=== PATIENT | male | born 1945 | race Caucasian/White ===

== ENCOUNTER 2021-05-22 10:27 | Day surgery (SDC) | payer OTHER ==
--- OUTSIDE RECORDS SUMMARY | 2021-05-22 10:29 | XMS REPORT | Continuity of Care Document ---
:1945 Author Organization [facility] Address [address] [place] [address] [address]. [address] [place] [address] Care Team Providers Name Role Phone KENDALL Attending Clinician Unavailable MARK Attending Clinician Unavailable Traci Attending Clinician Unavailable CATRACHITA Attending Clinician Unavailable EVER Attending Clinician Unavailable OXANA Attending Clinician Unavailable MD Mamta ARGUETA Attending Clinician Unavailable ALFRED Attending Clinician Unavailable MILI Attending Clinician Unavailable AGUSTO Attending Clinician Unavailable OXANA Admitting Clinician Unavailable MD Mamta ARGUETA Admitting Clinician Unavailable Problems This patient has no known problems. Allergies, Adverse Reactions, Alerts This patient has no known allergies or adverse reactions. Medications This patient has no known medications. Procedures This patient has no known procedures. Encounters Start End Encounter Admission Attending Care Care Encounter Source Date/Time Date/Time Type Type Clinicians Facility Department ID 2021-03-04 2021-03-04 Outpatient KENDALL [facility] [id number] [place] 00:00:00 00:00:[address] MEME [address] 2021-03-04 2021-03-04 Outpatient KENDALL [facility] [id number] [place] 00:00:00 00:00:00 MEME 910 [facility] 2020-12-23 2020-12-23 Outpatient MRAK [facility] [id number] [place] 00:00:00 00:00:00 CHRISS [facility] 2020-12-23 2020-12-23 Outpatient MARK [facility] [id number] [place] 00:00:00 00:00:00 CHRISS [address] 2020-09-01 2020-09-01 [id number] [place] 00:00:00 00:00:00 MEME [address] 2020-09-01 2020-09-01 [facility] [id number] [place] 00:00:00 00:00:00 MEME [address] 2020-06-02 2020-06-02 Outpatient WOOD, [facility] [id number] [place] 00:00:00 00:00:00 MEME [address] 2020-06-02 2020-06-02 Outpatient WOOD, [facility] [id number] [place] 00:00:00 00:00:00 MEME [address] 2020-04-18 2020-04-18 Outpatient KENDALL, [facility] [id number] [place] 00:00:00 00:00:00 MEME [address] 2020-04-18 2020-04-18 Outpatient KENDALL, [facility] [id number] [place] 00:00:00 00:00:00 MEME [address] 2020-04-18 2020-04-18 Outpatient ON, [facility] [id number] [place] 00:00:00 00:00:00 NABOR [address] 2020-03-13 2020-03-13 Outpatient RADARETHA, [facility] [id number] [place] 00:00:00 00:00:00 DOUG [address] 2020-03-13 2020-03-13 Outpatient RADLEY, [facility] [id number] [place] 00:00:00 00:00:00 DOUG [address] 2020-02-28 2020-03-05 Inpatient JOGLEKAR, [facility] [id number] [place] 00:00:00 00:00:00 MORRIS [address] 2020-02-26 2020-02-26 Outpatient KENDALL, [facility] [id number] [place] 00:00:00 00:00:00 MEME [address] 2020-02-26 2020-02-26 Outpatient KENDALL, [facility] [id number] [place] 00:00:00 00:00:00 MEME [address] 2020-02-21 2020-02-21 Outpatient RADARETHA, [facility] [id number] [place] 00:00:00 00:00:00 DOUG [address] 2020-02-11 2020-02-11 Outpatient BRAUNREITER [facility] [id number] [place] 00:00:00 00:00:00 MATHIEU [address] 2020-01-31 2020-01-31 Outpatient BRAUNREITER [facility] [id number] [place] 00:00:00 00:00:00 , MATHIEU 530 [facility] 2020-01-21 2020-01-21 Outpatient BRAUNREITER [facility] [id number] [place] 00:00:00 00:00:00 , MATHIEU 438 [facility] 2020-01-21 2020-01-21 Outpatient MILI, [facility] [id number] [place] 00:00:00 00:00:00 SIXTOOPAL Ridley Metho di 2020-01-21 2020-01-21 Outpatient BRAUNREITER [facility] [id number] [place] 00:00:00 00:00:00 , MATHIEU 345 [facility] 2020-01-21 2020-01-21 [facility] [id number] [place] 00:00:00 00:00:00 , MATHIEU 342 [facility] 2019-11-01 2019-11-01 Outpatient AGUSTO, [facility] [id number] [place] 00:00:00 00:00:00 NADMARI [address] 2019-10-18 2019-10-18 Outpatient ONDO, [facility] [id number] [place] 00:00:00 00:00:00 NABOR 957 [facility] 2019-06-18 2019-06-18 Outpatient ONDO, [facility] [id number] [place] 00:00:00 00:00:00 NABOR [address] Results Test Description Test Time Test Comments Results Result [facility] e Comments CT ABDOMEN AND 2020-04-30 PELVIS W/WO 17:14:32 [facility]ICAL IMAGINGName: BRYANNA JARQUIN: 1945 Sex: M CL INICAL INDICATION: R31.9 Hematuria, unspecifiedMODALITY: [employer] Scen[employer] [address] (Iterative dose reduction technique is used).TECHNIQUE: Helical imaging of the abdomen and pelvis is performed. Oral contrast is not administered. 90 mls optiray 350 are administered IV. Imaging performed prior to and after administration of contrast.Computed Tomography Dose Index: 52.4 mGy. IMPRESSION:1. No acute abnormality or urinary obstruction.2. Single, bilateral intrarenal calculi as noted.3. Bilateral renal cysts.4. Status post cholecystectomy.5. Mildly enlarged prostate.6. Borderline hepatomegaly.7. Fat filled, 3.4 cm diameter right inguinal hernia.8. Coronary artery calcification.FINDING S:COMPARISON: No prior study.The lung bases are clear. No pleural disease is present. Coronary artery calcification is noted.The liver is borderline enlarged with a length of 17 cm. I see no focal attenuation defect suspicious for replacement lesion or abnormal contrast enhancement. Hepatic veins, portal venous system and biliary tree are normal. The gallbladder has been removed.Stomach and duodenum are unremarkable. The spleen is normal in size and contour. No pancreatic mass, pancreatic duct dilatation or peripancreatic edema is visible.Adrenal glands are normal. A nonobstructing, 5 mm, lower pole stone is present in the left kidney in addition to a 3 mm lower pole stone in the right kidney. There are six left renal cysts, largest and most likely hemorrhagic measuring 5 cm in diameter. Four right renal cysts are noted, largest measuring 1.5 cm. No hydronephrosis or solid renal mass is observed.Neither retrocrural nor retroperitoneal adenopathy is present. Vascular structures are within normal limits.No significant bowel pathology is noted. Omentum and mesentery are unremarkable.The prostate gland is mildly enlarged. It slightly elevates the base of the bladder which is otherwise unremarkable.A fat filled, 3.4 cm diameter right inguinal hernia is observed. Abdominal wall is otherwise intact. No ascites visualized.No suspicious lytic or blastic osseous lesions are observed.PQRS 436: G9637 (For official use only.) SARS-CoV-2 (COVID-19) RNA [Presence] in Respiratory sp ecimen by 2020-02-27 02:51:55 KASSIE with probe detection Test Item Value Reference Range Interpretation Comme nts SARS-CoV-2 (COVID-19) RNA [Presence] in Respiratory Not detected No t-Detected specimen by KASSIE with probe detection (test code = 01663-9)
[2021-05-22] MEDS ORDERED: HEPA 1000U/500MLS 2,000 UNIT/1,000 ML BAG IV ONE (10:43)
[2021-05-22] MEDS ORDERED: LIDOCAINE 1% 20 ML MDV ONE (10:43)
[2021-05-22] MEDS ORDERED: HEPARIN 5000 UNIT/ML 1 ML VIAL ONE (10:46)
[2021-05-22] MEDS ORDERED: CLOPIDOGREL 75 MG TABLET ONE (10:46)
[2021-05-22] MEDS ORDERED: VERAPAMIL HCL 10 MG/4 ML VIAL IV ONE (10:46)
[2021-05-22] MEDS ORDERED: TICAGRELOR 90 MG TABLET PO ONE (10:47)
[2021-05-22] MEDS ORDERED: ASPIRIN 325 MG TAB ONE (10:47)
[2021-05-22] MEDS ORDERED: HEPARIN 10,000 UNIT/10 ML VIAL IV ONE (10:47)
[2021-05-22] MEDS ORDERED: ATROPINE SULF 1 MG/10 ML SYR IV ONE (10:47)
[2021-05-22] MEDS ORDERED: FENTANYL CITR 100 MCG/2 ML ONE (10:48)
[2021-05-22] MEDS ORDERED: MIDAZOLAM HCL 2 MG/2 ML INJ ONE (10:48)
--- NOTE | 2021-05-22 10:51 | EDPHYS ---
Physician Documentation [facility] Name: Emanuel Porter Age: 75 yrs Sex: Male : 1945 Arrival Date: 05/22/2021 Time: 10:27 Bed 26 Private MD: Huan Rodríguez V; Raslan, Saleem ED Physician Boubacar Hooper HPI: 05/22 10:46 This 75 yrs old Male presents to ER via Unassigned with complaints of Chest erna Pain. 10:46 The patient or guardian reports chest pain that is located primarily in the substernal erna area. Onset: 3 day(s) ago. The pain does not radiate. Associated signs and symptoms: The patient has no apparent associated signs or symptoms. The chest pain is described as squeezing. Duration: The patient or guardian reports a single episode, that is still ongoing. Modifying factors: The symptoms are alleviated by remaining still, the symptoms are aggravated by activity. Severity of pain: At its worst the pain was mild in the emergency department the pain is unchanged. The patient has not experienced similar symptoms in the past. Historical: - Allergies: 10:52 No Known Allergies; ww - PMHx: 10:52 Arthritis; Atrial Fib; Depression; Hypertension; RESTLESS LEG; skin cancer; ww - PSHx: 10:52 back; Appendectomy; Cholecystectomy; ww - Immunization history:: Adult Immunizations up to date. - Social history:: Smoking status: Patient denies any tobacco usage or history of. - Family history:: not pertinent. ROS: 10:46 Constitutional: Negative for fever, chills, and weight loss, Eyes: Negative for injury, erna pain, redness, and discharge, ENT: Negative for injury, pain, and discharge, Neck: Negative for injury, pain, and swelling, Respiratory: Negative for shortness of breath, cough, wheezing, and pleuritic chest pain, Abdomen/GI: Negative for abdominal pain, nausea, vomiting, diarrhea, and constipation, Back: Negative for injury and pain, : Negative for injury, bleeding, discharge, and swelling, MS/Extremity: Negative for injury and deformity, Skin: Negative for injury, rash, and discoloration, Neuro: Negative for headache, weakness, numbness, tingling, and seizure, Psych: Negative for depression, anxiety, suicide ideation, homicidal ideation, and hallucinations, Allergy/Immunology: Negative for hives, rash, and allergies, Endocrine: Negative for neck swelling, polydipsia, polyuria, polyphagia, and marked weight changes, Hematologic/Lymphatic: Negative for swollen nodes, abnormal bleeding, and unusual bruising. 10:46 Cardiovascular: Positive for chest pain, of the chest. Exam: 10:46 Constitutional: This is a well developed, well nourished patient who is awake, alert, erna and in no acute distress. Head/Face: Normocephalic, atraumatic. Eyes: Pupils equal round and reactive to light, extra-ocular motions intact. Lids and lashes normal. Conjunctiva and sclera are non-icteric and not injected. Cornea within normal limits. Periorbital areas with no swelling, redness, or edema. ENT: Nares patent. No nasal discharge, no septal abnormalities noted. Tympanic membranes are normal and external auditory canals are clear. Oropharynx with no redness, swelling, or masses, exudates, or evidence of obstruction, uvula midline. Mucous membranes moist. Neck: Trachea midline, no thyromegaly or masses palpated, and no cervical lymphadenopathy. Supple, full range of motion without nuchal rigidity, or vertebral point tenderness. No Meningismus. Chest/axilla: Normal chest wall appearance and motion. Nontender with no deformity. No lesions are appreciated. Cardiovascular: Regular rate and rhythm with a normal S1 and S2. No gallops, murmurs, or rubs. Normal PMI, no JVD. No pulse deficits. Respiratory: Lungs have equal breath sounds bilaterally, clear to auscultation and percussion. No rales, rhonchi or wheezes noted. No increased work of breathing, no retractions or nasal flaring. Abdomen/GI: Soft, non-tender, with normal bowel sounds. No distension or tympany. No guarding or rebound. No evidence of tenderness throughout. Back: No spinal tenderness. No costovertebral tenderness. Full range of motion. Male : Normal genitalia with no discharge or lesions. Skin: Warm, dry with normal turgor. Normal color with no rashes, no lesions, and no evidence of cellulitis. MS/ Extremity: Pulses equal, no cyanosis. Neurovascular intact. Full, normal range of motion. Neuro: Awake and alert, GCS 15, oriented to person, place, time, and situation. Cranial nerves II-XII grossly intact. Motor strength 5/5 in all extremities. Sensory grossly intact. Cerebellar exam normal. Normal gait. Psych: Awake, alert, with orientation to person, place and time. Behavior, mood, and affect are within normal limits. Vital Signs: 10:50 Temp 98.5; Weight 100.24 kg; Height 6 ft. 0 in. (182.88 cm); ww 10:57 BP 158 / 84; Pulse 56; Resp 18; Temp 97.9; Pulse Ox 100% on R/A; Weight 100.24 kg; dominguez Height 6 ft. 0 in. (182.88 cm); 10:57 Body Mass Index 29.97 (100.24 kg, 182.88 cm) dominguez MDM: 10:37 Patient medically screened. erna 10:49 Differential diagnosis: abnormal EKG, acute myocardial infarction, anxiety, coronary erna artery disease congestive heart failure hiatal hernia, stable angina, unstable angina. HEART Score: History: Moderately Suspicious (1), ECG: Normal (0), Age: > or = 65 years (2), Risk Factors: > or = 3 Risk factors for atherosclerotic disease (2), [Hypercholesterolemia] [Hypertension] [+ Family HX] [Obesity] Troponin: < or = 1 x Normal Limit (0). The patient was given aspirin in the Emergency Department. The patient's deep vein thrombosis risk score was calculated as follows: Total Score: 0. This patient was found to be at low risk for a deep vein thrombosis by using the Well's assessment criteria. The patient's pulmonary embolism risk score was calculated as follows: Total Score: 0-2 points. This patient was found to be at low risk for a pulmonary embolism by using the Well's assessment criteria. HAYES Risk Score: 1 - patient's age is greater or equal to 65 years, 1 - Three or more CAD risk factors, 1- Known CAD, 1 - ASA use in past 7 days, TOTAL SCORE = 4. Data reviewed: vital signs, nurses notes, lab test result(s), EKG, radiologic studies, plain films. Data interpreted: spray gunner: rate is 75 beats/min, rhythm is regular. Test interpretation: by ED physician or midlevel provider: ECG, plain radiologic studies. Counseling: I had a detailed discussion with the patient and/or guardian regarding: the historical points, exam findings, and any diagnostic results supporting the discharge/admit diagnosis, lab results, radiology results, the need for further work-up and treatment in the hospital. 05/22 10:44 Order name: Basic Metabolic Panel [facility] 05/22 10:44 Order name: CBC with Diff [facility] 05/22 10:44 Order name: LFT's [facility] 05/22 10:44 Order name: Magnesium [facility] 05/22 10:44 Order name: NT PRO-BNP [facility] 05/22 10:44 Order name: PT-INR [facility] 05/22 10:44 Order name: Troponin HS [facility] 05/22 10:44 Order name: XRAY Chest (1 view) [facility] 05/22 10:44 Order name: EKG; Complete Time: 10:45 [facility] 05/22 10:44 Order name: Cardiac monitoring; Complete Time: 10:54 [facility] 05/22 10:44 Order name: EKG - Nurse/Tech; Complete Time: 10:54 [facility] 05/22 10:44 Order name: SARS-COV-2 RT PCR (Document "Date of Onset" if Symptomatic) [facility] 05/22 10:44 Order name: IV Saline Lock; Complete Time: 10:54 [facility] 05/22 10:44 Order name: Labs collected and sent; Complete Time: 10:54 [facility] 05/22 10:44 Order name: O2 Per Protocol; Complete Time: 10:54 [facility] 05/22 10:44 Order name: O2 Sat Monitoring; Complete Time: 10:54 [facility] 05/22 10:44 Order name: Urine Dipstick-Ancillary (obtain specimen) erna Administered Medications: 11:03 Drug: Aspirin Chewable Tablet 324 mg Route: PO; dominguez 11:03 Follow up: Response: No adverse reaction dominguez Disposition Summary: 05/22/21 10:51 Hospitalization Ordered Hospitalization Status: Observation erna Provider: Moises Joseph cha Location: Motel [facility] erna Condition: Fair erna Problem: new erna Symptoms: have improved erna Bed/Room Type: Standard [facility] Room Assignment: erna Diagnosis - Unstable angina erna - Chest pain, unspecified erna Forms: - Medication Reconciliation Form erna - SBAR form erna Signatures: Dispatcher [employer] Boubacar Weir MD MD cha Wood, Whitney, RN RN ww Au-Stager, Heather, RN RN ha
[2021-05-22] MEDS ORDERED: NA CHLORIDE 0.9% 500 ML ONE (10:54)
[2021-05-22 11:03] LABS: Absolute Lymphocytes (CBC) 1.2 K/uL (0.7-4.9); Hematocrit 46.5 % (39.6-49.0); Lymphocytes % 21.4 % (15.3-44.8); MPV 8.5 fL (7.6-11.3)
[2021-05-22] MEDS ORDERED: ASPIRIN 81 MG CHEWABLE TABLET ONE (11:05)
[2021-05-22 11:06] LABS: Protime INR 0.96
[2021-05-22 11:25] LABS: ALT/SGPT < 10 U/L (12-78); AST/SGOT 19 U/L (15-37); Albumin 4.2 g/dL (3.4-5.0); Alkaline Phosphatase 80 U/L (45-117); BUN Blood Urea Nitrogen 28 mg/dL (7-18); Bicarbonate 30 mmol/L (21-32); Bilirubin Direct 0.2 mg/dL (0-0.2); Bilirubin Total 0.7 mg/dL (0.2-1.0); Glucose Level 98 mg/dL (74-106); Magnesium 2.5 mg/dL (1.8-2.4); NT PRO-BNP 44 pg/mL (<450); Potassium 3.6 mmol/L (3.5-5.1); Protein, Total 7.6 g/dL (6.4-8.2); Sodium Level 140 mmol/L (136-145)
--- NOTE | 2021-05-22 11:31 | ER ---
Nurse's Notes [facility] Name: Emanuel Porter Age: 75 yrs Sex: Male : 1945 Arrival Date: 05/22/2021 Time: 10:27 Bed 26 Private MD: Huan Rodríguez V; Raslan, Saleem Diagnosis: Unstable angina;Chest pain, unspecified Presentation: 05/22 10:50 Chief complaint: Patient states: Sent from [facility] for a heart cath. ww Patient admits to having chest pain/pressure/tightness that started yesterday. He admits to having intermittent chest pains for awhile. Coronavirus screen: Vaccine status: Patient reports receiving the 2nd dose of the covid vaccine. Client denies travel out of the [place] in the last 14 days. Ebola Screen: Patient negative for fever greater than or equal to 101.5 degrees Fahrenheit, and additional compatible Ebola Virus Disease symptoms Patient denies travel to an Ebola-affected area in the 21 days before illness onset. Initial Sepsis Screen: Does the patient meet any 2 criteria? No. Patient's initial sepsis screen is negative. Does the patient have a suspected source of infection? No. Patient's initial sepsis screen is negative. Risk Assessment: Do you want to hurt yourself or someone else? Patient reports no desire to harm self or others. Onset of symptoms was May 21, 2021. 10:50 Method Of Arrival: Ambulatory ww 10:50 Acuity: MOUSTAPHA 3 ww Triage Assessment: 10:52 General: Appears in no apparent distress. comfortable, Behavior is calm, cooperative, ww appropriate for age. Pain: Complains of pain in anterior aspect of left upper chest, xiphoid area, mid-sternal area and left breast. Neuro: Level of Consciousness is awake, alert, obeys commands, Oriented to person, place, time, situation, Yardmaster are equal bilaterally Speech is normal. Cardiovascular: Capillary refill < 3 seconds Patient's skin is warm and dry. Chest pain quality is heaviness. Respiratory: Airway is patent Respiratory effort is even, unlabored, Respiratory pattern is regular, symmetrical. GI: No signs and/or symptoms were reported involving the gastrointestinal system. Abdomen is non-distended. : No signs and/or symptoms were reported regarding the genitourinary system. Derm: Skin is intact, is healthy with good turgor. Historical: - Allergies: 10:52 No Known Allergies; ww - PMHx: 10:52 Arthritis; Atrial Fib; Depression; Hypertension; RESTLESS LEG; skin cancer; ww - PSHx: 10:52 back; Appendectomy; Cholecystectomy; ww - Immunization history:: Adult Immunizations up to date. - Social history:: Smoking status: Patient denies any tobacco usage or history of. - Family history:: not pertinent. Screenin:54 Abuse screen: Denies threats or abuse. Denies injuries from another. Nutritional ww screening: No deficits noted. Tuberculosis screening: No symptoms or risk factors identified. Fall Risk None identified. Assessment: 10:56 General: Appears in no apparent distress. Behavior is calm, cooperative. Pain: dominguez Complains of pain in chest Pain does not radiate. Pain began gradually. Cardiovascular: Reports chest pain, Chest pain is located in anterior chest wall. Vital Signs: 10:50 Temp 98.5; Weight 100.24 kg; Height 6 ft. 0 in. (182.88 cm); ww 10:57 BP 158 / 84; Pulse 56; Resp 18; Temp 97.9; Pulse Ox 100% on R/A; Weight 100.24 kg; dominguez Height 6 ft. 0 in. (182.88 cm); 10:57 Body Mass Index 29.97 (100.24 kg, 182.88 cm) dominguez ED Course: 10:27 Patient arrived in ED. as 10:28 Huan Rodríguez MD is Private Physician. as 10:28 Moises Joseph MD is Private Physician. as 10:33 Boubacar Hooper MD is Attending Physician. erna 10:50 Moises Joseph MD is Hospitalizing Provider. erna 10:50 Moises Joseph MD is Hospitalizing Provider. erna 10:52 Triage completed. ww 10:52 Arm band placed on right wrist. ww 10:54 Patient has correct armband on for positive identification. Placed in gown. Bed in low ww position. Call light in reach. Side rails up X 1. Adult w/ patient. technical services representative on. Pulse ox on. NIBP on. 10:56 No provider procedures requiring assistance completed. Inserted saline lock: 20 gauge dominguez in left forearm, using aseptic technique. Patient maintains SpO2 saturation greater than 95% on room air. 11:00 EKG done, by ED staff, reviewed by Boubacar Hooper MD. em1 11:03 SARS-COV-2 RT PCR (Document "Date of Onset" if Symptomatic) Sent. 11:30 Patient admitted, IV remains in place. dominguez Administered Medications: 11:03 Drug: Aspirin Chewable Tablet 324 mg Route: PO; dominguez 11:03 Follow up: Response: No adverse reaction dominguez Outcome: 10:51 Decision to Hospitalize by Provider. erna 11:30 Admitted to [facility] Cove[facility] Hand accompanied by nurse, family with patient, via stretcher, on dominguez monitor. 11:30 Condition: stable 11:30 Instructed on the need for admit. 11:30 Patient left the ED. dominguez Signatures: Boubacar Hooper MD MD cha Martinez, Amelia as Martinez, Eric em1 Deysi Bill, RN RN Alcira Bauman RN RN
[2021-05-22 11:43] VITALS: TEMP 97.9
[2021-05-22 14:31] VITALS: BP 117/69
[2021-05-22 15:14] VITALS: O2SAT 99
--- NOTE | 2021-05-22 22:33 | OP ---
Date of Procedure: 05/22/2021 Surgeon: WALDO BETHEA Procedure Performed: Selective coronary angiogram. Indication: Unstable angina. Access: Right radial artery 6-Arabic closed with TR band. Complications: None. Bleeding: Less than 10 mL. Anesthesia: Total sedation time was 20 minutes. Description Of Procedure: After risks, benefits, and alternatives were explained, the patient agreed to proceed and signed informed consent. The patient was brought into the cardiac catheterization la boratory, prepped and draped in usual sterile fashion. Then, we accessed right radial artery using p Beroomers micropuncture kit and placed a 6-Arabic slender sheath and took a 5-Arabic [place] 4.0 cathete r into the aortic root, engaged the left main and right coronary artery, took standard views and sanjeev pily the catheter and sheath, placed TR band with good hemostasis. Findings: 1.Left main is large and normal. 2.LAD is large with diffuse 10% to 20% throughout and luminal irregularity and normal diagonal branc hes. 3.Left circumflex that is nondominant, but moderate-sized vessel with no significant disease. 4.RCA is large dominant with diffuse 10% to 20% stenosis, but nothing obstructive. Conclusion: Mild nonobstructive coronary artery disease. Plan: Medical management, high-dose statin, and baby aspirin and follow up with me in the office in 1 month. SR/MODL Voice ID: [id number] Report ID: [id number]
--- NOTE | 2021-05-23 12:46 | EKG ---
Test Date: 2021-05-22 Test Time: 10:55:06 Director Of Broadcast: VERN MEASUREMENT RESULTS: Intervals: Rate: 51 PA: 214 QRSD: 106 QT: 440 QTc: 405 [place]: P: 68 PA: 214 QRS: -31 T: 31 INTERPRETIVE STATEMENTS: Sinus bradycardia with sinus arrhythmia with 1st degree AV block Left axis deviation Cannot rule out Anterior infarct, age undetermined Abnormal ECG Compared to ECG 09/10/2010 19:13:28 First degree AV block now present Left-axis deviation now present Myocardial infarct finding now present Electronically Signed On 05-23-21 12:45:01 FIXER SUPERVISOR by Michi Hastings
== END 2021-05-22 15:10 | disposition home or self-care (01) ==
LOC: ER 10:27 → CCL 10:53
PROVIDERS: ATTEND Internal Medicine
DX: I25.110 Atherosclerotic heart disease of native coronary artery with unstable angina pectoris (principal); I48.91 Unspecified atrial fibrillation; I10 Essential (primary) hypertension; G25.81 Restless legs syndrome; M19.90 Unspecified osteoarthritis, unspecified site; F32.A Depression, unspecified; Z85.828 Personal history of other malignant neoplasm of skin; Z90.49 Acquired absence of other specified parts of digestive tract; Z20.822 Contact with and (suspected) exposure to COVID-19
CPT/HCPCS: 93005; 85025; 80048; 36415; 83735; 85610; 85379 ×2; 80076; 84484; 83880; 93454; 99285; U0003; C1893; J1644 ×2; J2250; J3010; J7040

== ENCOUNTER 2022-09-02 10:48 | Observation (INO) | payer OTHER ==
--- OUTSIDE RECORDS SUMMARY | 2022-09-02 11:02 | XMS REPORT | Continuity of Care Document ---
:1945 Author Organization [facility] t Address [address] [place] [address] [address] [place] [address] Care Team Providers Name Role Phone Chriss Rodríguez MD Primary Care Physician Kristian Recio MD Attending Clinician Pedro Gregorio Attending Clinician PEDRO GREGORIO Attending Clinician Unavailable AMBREEN PETERSEN Attending Clinician Unavailable Ambreen Petersen Attending Clinician GIDEON LIZ Attending Clinician Unavailable MEME ARGUETA Attending Clinician Unavailable CHRISS RODRÍGUEZ Attending Clinician Unavailable DOUG CURTIS Attending Clinician Unavailable MORRIS DAIGLE Attending Clinician Unavailable MD MEME ARGUETA Attending Clinician Unavailable MATHIEU SIMON Attending Clinician Unavailable SIXTO GARCES Attending Clinician Unavailable Olegario Miller Attending Clinician Aleena Samano Attending Clinician Jayce Sampson Attending Clinician Antonio Bullock Attending Clinician Antonio Bullock Attending Clinician Mukund Mcdowell Attending Clinician MORRIS DAIGLE Admitting Clinician Unavailable MD MEME ARGUETA Admitting Clinician Unavailable Clemente Whitt Admitting Clinician Antonio Bullock Admitting Clinician Antonio Bullock Admitting Clinician Payers Payer Name Policy Type Policy Number Effective Date Expiration Date Alexandra YBARRA MEDICARE PPO [id number] 2022 00:00:00 Problems Condition Condition Condition Status Onset Resolution Last Treating Co mments Source Name Details Category Date Date Treatment Clinician Date C61 C61 Diagnosis Active 2022-08-30 Mem oria Active 08-02 13:51:00 l 08/02/2022 00:00: Francis castro 00 [facility] DX C61 DX C61 Diagnosis Active 2022-08-19 Me moria Active 08-02 08:49:00 l 08/02/2022 00:00: Francis castro 00 [place] 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-15 st stenosis stenosis 00:00: Hospit a 00 l 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 Added automatic ally from request for surgery [id number] Other Other Disease Active 2019-03 Overview: Method i spondylosi spondylosi 2-[address] s with s with 00:00: g of this Hospita radiculopa radiculopa 00 note l thy, thy, might be lumbar lumbar different region region from the original. 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 Added automatic ally from request for surgery [id number] WOUND VAC WOUND VAC Diagnosis Active 2019-07-19 Memoria NOT NOT 07-18 16:59:00 l WORKING WORKING 00:00: Khurram Active 07/19/2019 [facility] LACERATION LACERATIO Diagnosis Active 2019-07-16 Memoria TO LEFT N TO LEFT 07-12 18:03:00 l LOWER LEG LOWER LEG 00:00: Herm kathleen Active 07/13/2019 [facility] M51.36 - M51.36 - Diagnosis Active 2016-10-28 Memoria OTHER OTHER 10-25 10:28:00 l INTERVERTE INTERVERTE 00:01: He rmann BRAL DISC BRAL DISC 00 DEGE DEGE Active 10/25/2016 [facility] 780.2 - 780.2 - Diagnosis Active 2014-06-16 Memoria SYNCOPE SYNCOPE - 20:02:00 l AND COL AND COL 00:01: Khurram 780.09 - 780.09 - 00 CONSCIO CONSCIO Active 04/10/2014 [facility] [place] 780.2 - 780.2 - Diagnosis Active 2013-032014-06-16 Memoria SYNCOPE SYNCOPE - 20:02:00 l AND COL AND COL 00:01: Khurram 780.09 - 780.09 - 00 CONSCIO CONSCIO Active 01/31/2014 [facility] [place] Blood in Blood in Problem Active 2022-08-30 Memoria urine urine 07:03:48 l (finding) (finding) Herm kathleen Active Problem 08/30/2022 [facility] Nocturia Nocturia Problem Active 2022-08-30 Memoria associated associated 07:03:48 l with with Khurram benign benign prostatic prostatic hypertroph hypertroph y y (finding) (finding) Active Problem 08/30/2022 [facility]gent Urgent Problem Active 2022-08-30 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 12:20:37 l disorders disorders Herm kathleen with with myelopathy myelopathy , lumbar , lumbar region region 08/16/2017 [place] Interverte Intervert Problem 2017-08-16 Memoria bral disc ebral disc 12:20:37 l disorders disorders Herm kathleen with with myelopathy myelopathy , thoracic , thoracic region region 08/16/2017 [place] Osteophyte Osteophyt Problem 2017-08-16 Memoria , e, 12:20:37 l vertebrae vertebrae Herm kathleen 08/16/2017 [place] Essential Essential Problem 2017-08-16 Memoria (primary) (primary) 12:20:37 l hypertensi hypertensi He rmann on on 08/16/2017 [place] Unspecifie Unspecifi Problem 2017-08-16 Memoria d ed 12:20:37 l osteoarthr osteoarthr He rmann itis, itis, unspecifie unspecifie d site d site 08/16/2017 [place] Restless Restless Problem 2017-08-16 Memoria legs legs 12:20:37 l syndrome syndrome Francis n 08/16/2017 [place] Unspecifie Unspecifi Problem 2017-08-16 Memoria d atrial ed atrial 12:20:37 l fibrillati fibrillati He rmann on on 08/16/2017 [place] Osteoarthr Osteoarth Problem Resolve 2020-10-25 Memoria itis ritis d 00:47:10 l (disorder) (disorder) He rmann Resolved Problem 10/25/2020 [facility] Restless Restless Problem Resolve 2020-10-25 Memoria legs legs d 00:47:10 l (disorder) (disorder) He rmann Resolved Problem 10/25/2020 [facility] Malignant Problem Resolve 2017-03-04 [facility] neoplasm Malignant d 05:01:36 l of skin neoplasm Khurram (disorder) of skin (disorder) Resolved Problem 03/04/2017 removed with no further treatment needed [facility] Lesion of Lesion Diagnosis Active 2017-08-26 Memoria plantar of plantar 02:02:37 l nerve, nerve, Khurram left lower left lower limb limb Active Diagnosis 08/26/2017 eCW: Nino Simpson Disorder Disorder Diagnosis Active 2017-08-26 Memoria of of 02:02:37 l pigmentati pigmentati He rmann on, on, unspecifie unspecifie d d Active Diagnosis 08/26/2017 eCW: Nino Simpson Lesion of Lesion of Diagnosis Active 2017-08-26 Memoria plantar plantar 02:02:37 l nerve, nerve, [place] right right lower limb lower limb Active Diagnosis 08/26/2017 eCW: Nino Jacoboor Localized Localized Diagnosis Active 2017-08-26 Memoria edema edema 02:02:37 l Active [place] Diagnosis 08/26/2017 eCW: Nino Jacoboor Pain in Pain in Diagnosis Active 2017-08-26 Memoria right foot right foot 02:02:37 l Active [place] Diagnosis 08/26/2017 eCW: Nino Jacoboor Pain in Pain in Diagnosis Active 2017-08-26 Memoria left foot left foot 02:02:37 l Active Khurram Diagnosis 08/26/2017 eCW: Nino Simpson Atrial Atrial Problem Active 2017-03-04 Jose connie fibrillati fibrillati 05:01:36 l on on Khurram (disorder) (disorder) Active Problem 03/04/2017 pt states he has not had a problem with "A-Fib" in over a year. Pt wears a LINQ monitor [facility] Backache Backache Problem Active 2017-03-04 Memoria (finding) (finding) 05:01:36 l Active [place] Problem 03/04/2017 [facility] Hypertensi Hypertens Problem Active 2017-03-04 Memoria ve anish 05:01:36 l disorder, disorder, Herm kathleen systemic systemic arterial arterial (disorder) (disorder) Active Problem 03/04/2017 [facility] Neuropathy Neuropath Problem Active 2017-03-04 Memoria (disorder) y 05:01:36 l (disorder) Francis n Active Problem 03/04/2017 [facility] Seasonal Seasonal Problem Active 2017-03-04 Memoria allergy allergy 05:01:36 l (disorder) (disorder) Best rmann Active Problem 03/04/2017 [facility] Sleep Sleep Problem Active 2017-03-04 Memor ia apnea apnea 05:01:36 l (finding) (finding) Kedar wang Active Problem 03/04/2017 [facility] History of Past Illness Condition Condition Condition Status Onset Resolution Last Treating Co mments Source Name Details Category Date Date Treatment Clinician Date Other Other Problem 2019-07-21 2019-07-21 M emoria injury of injury of 07-18 22:09:20 22:09:20 l unspecifie unspecifie 17:00: He rmann d body d body 00 region, region, initial initial encounter encounter 07/19/2019 07/21/2019 [facility] Other Other Problem 2017-09-23 2017-09-23 M emoria abnormalit abnormalit 06-24 12:10:13 12:10:13 l ies of ies of 04:20: Khurram gait and gait and 29 mobility mobility 06/24/2017 09/23/2017 [facility] [place] Cervical Cervical Problem 2017-08-16 2017-08-16 Memoria disc disc 3- 12:20:37 12:20:37 l disorder disorder 05:00: Francis n at C4-C5 at C4-C5 26 level with level with myelopathy myelopathy 05/19/2017 08/16/2017 [place] Unspecifie Problem 2016-032017-03-04 2017-03-04 Memoria d cord Unspecifie 2-13 05:01:36 05:01:36 l compressio d cord 06:00: Francis castro n compressio 00 n 03/02/2017 03/04/2017 [facility] Allergies, Adverse Reactions, Alerts Allergy Allergy Status Severity Reaction(s) Onset Inactive Treating Comm ents Source Name Type Date Date Clinician N.K.Mildred.A. N.K.D.A. Active Info Not Jose connie Available 5-17 l 00:00: Khurram 00 NKFA NKFA Active Memoria l [place] No Known No Known Active Memori a Medicati Medicati l on on Khurram Garcia s s Family History Family Member Diagnosis Comments Start Date Stop Date Source Natural father Leukemia [facility] Natural father Cancer [facility] Natural mother Arthritis [facility] Natural mother Cancer [facility] Natural mother Pancreatic cancer [facility] Natural mother Valvular heart [facility] disease Natural brother Arthritis [facility] Natural brother Dementia [facility] Social History Social Habit Start Date Stop Date Quantity Comments Source Gender identity 2019-06-18 Identifies as male M ethodist 12:03:17 gender (finding) Hospital Sexual orientation 2019-06-18 Heterosexual Meth odist 12:03:17 (finding) Hospital History of tobacco 1962-08-19 Current smoker Me thodist use 00:00:00 Hospital History of Social 2022-05-24 2022-05-[address] function 00:00:00 00:00:00 Hospital Cigarette 2022-05-17 2022-05-17 Judaism pack-years 00:00:00 00:00:00 Hospital Tobacco use and 2022-05-17 2022-05-17 Smokeless tobacco Me thodist exposure 00:00:00 00:00:00 non-user Hospital Alcohol intake 2022-05-17 2022-05-17 Current drinker of Me thodist 00:00:00 00:00:00 alcohol (finding) Hospita l Social History 2019-07-13 2019-07-13 [facility] 23:38:04 23:38:04 Alcohol Comment 2017-07-28 2017-07-28 occasionally-beer Me thodist 00:00:00 00:00:00 Hospital Sex [birth year] At [birth year] JOSEPHINE Wilkerson kes 00:00:00 00:00:00 [facility] Smoking Status Start Date Stop Date Source Ex-smoker 2022-05-17 00:00:00 2022-05-17 00:00:00 [facility] Tobacco smoking status [facility] Medications Ordered Filled Start Stop Current Ordering Indication Dosage Frequency Signature Comments Components Source Medication Medication Date Date Medication? 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 aspirin Yes 81mg QD Take 1 Methodi (ECOTRIN) 2-27 tablet (81 st 81 MG 08:39: mg total) Hospita enteric 13 by mouth l coated daily. tablet propranoloL 2023- No 20mg Q.5D Take 1 Met hodi (INDERAL) -17 05- tablet (20 st 20 MG 00:00: 05:59 mg total) Hospit a tablet 00 :00 by mouth 2 l (two) times a day. Titrate as directed up to 3 pills twice daily rosuvastati 0 Yes PO, Daily, Memoria n 2-21 0 l 20:54: Refill(s) rosuvastati 0 Yes PO, Daily, Memoria n 2-21 0 l 20:54: Refill(s) Eliquis 5 Yes 180 ea, Memor ia mg oral 2-21 TAKE 1 l tablet 20:51: TABLET BY Francis n 00 MOUTH TWICE A DAY, 0 Refill(s) Eliquis 5 Yes 180 ea, Memor ia mg oral 2-21 TAKE 1 l tablet 20:51: TABLET BY Francis n 00 MOUTH TWICE A DAY, 0 Refill(s) pramipexole 2022- No 3 TIMES A Methodi (MIRAPEX) 6-20 06-[address] 0.5 MG 00:00: 00:00 (TITRATE Hospit a tablet 00 :00 l DIRECTED 1 TABLET IN MORNING AND 2 TABLETS IN THE EVENING) Rytary 2022- No TAKE 1 Methodi 61.25-245 06-10 06-[address] mg capsule, 00:00: 00:00 MOUTH Hosp lynne extended 00 :00 THREE l release TIMES A DAY pregabalin Yes [id number] 100mg Q.5D Take 1 Methodi (LYRICA) 05-[address] 100 MG 00:00: (100 mg Hospita capsule 00 total) by l mouth 2 (two) times a day for 30 days. tamsulosin Yes = 1 cap, Mem oria 0.4 mg oral 2-28 PO, Daily, l capsule 23:30: # 90 [place] 00 unknown unit, 3 Refill(s), Pharmacy: [id number], 182.88, cm, 08/20/20 14:24:00 CDT, Height, 104.716, kg, 08/20/20 14:24:00 CDT, Weight tamsulosin Yes = 1 cap, Mem oria 0.4 mg oral 2-28 PO, Daily, l capsule 23:30: # 90 Khurram 00 unknown unit, 3 Refill(s), Pharmacy: [facility] [id number], 182.88, cm, 08/20/20 14:24:00 CDT, Height, 104.716, kg, 08/20/20 14:24:00 CDT, Weight pramipexole 2021- No 3 TIMES A Methodi (MIRAPEX) 10-27 06-[address] 0.5 MG 00:00: 00:00 (TITRATE Hospit a tablet 00 :00 l DIRECTED 1 TABLET IN MORNING AND 2 TABLETS IN THE EVENING) Tamsulosin Yes 0.4 mg = 1 M emoria hydrochlori 3-01 cap, PO, l de 0.4 MG 21:05: Daily, # Herm ktahleen Oral 00 90 cap, 3 Capsule Refill(s), [Flomax] Pharmacy: [facility] #[id number], 182.88, cm, 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, Height, 100, kg, 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, Weight Tamsulosin Yes 0.4 mg = 1 M emoria hydrochlori 3-01 cap, PO, l de 0.4 MG 21:05: Daily, # Herm kathleen Oral 00 90 cap, 3 Capsule Refill(s), [Flomax] [id number], 182.88, cm, 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, Height, 100, kg, 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, Weight Adult Yes 0 Memoria Aspirin 81 2-10 Refill(s) l mg oral 16:57: [place] delayed 00 release tablet pramipexole Yes 0.5 mg = 1 Memoria 0.5 mg oral 2-10 tab, PO, l tablet 16:57: TID, 0 Khurram 00 Refill(s) ezetimibe Yes 10 mg = 1 Mem oria 10 mg oral 2-10 tab, PO, l tablet 16:57: Daily, # [place] 00 30 tab, 0 Refill(s) pregabalin Yes 100 mg = 1 M emoria 100 mg oral 2-10 cap, PO, l capsule 16:57: BID, 0 [place] 00 Refill(s) 8 HR Yes 2 cap, PO, Memoria Carbidopa 2-10 TID, 0 l 48.75 MG / 16:57: Refill(s) He rmann Levodopa 00 195 MG Extended Release Oral Capsule [Rytary] Docusate Yes 100 mg = 1 Mem oria Sodium 100 2-10 cap, PO, l MG Oral 16:57: BID, PRN Francis n Capsule 00 Constipati [Colace] on, # 20 cap, 0 Refill(s) 8 HR Yes 2 cap, PO, Memoria Carbidopa 2-10 TID, 0 l 48.75 MG / 16:57: Refill(s) He rmann Levodopa 00 195 MG Extended Release Oral Capsule [Rytary] Docusate Yes 100 mg = 1 Mem oria Sodium 100 2-10 cap, PO, l MG Oral 16:57: BID, PRN Francis n Capsule 00 Constipati [Colace] on, # 20 cap, 0 Refill(s) Adult Yes 0 Memoria Aspirin 81 2-10 Refill(s) l mg oral 16:57: Khurram delayed 00 release tablet pramipexole Yes 0.5 mg = 1 Memoria 0.5 mg oral 2-10 tab, PO, l tablet 16:57: TID, 0 [place] 00 Refill(s) ezetimibe Yes 10 mg = 1 Mem oria 10 mg oral 2-10 tab, PO, l tablet 16:57: Daily, # Khurram 00 30 tab, 0 Refill(s) pregabalin Yes 100 mg = 1 M emoria 100 mg oral 2-10 cap, PO, l capsule 16:57: BID, 0 Khurram 00 Refill(s) tramadol 2019-0 Yes 50 mg = 1 Jose connie hydrochlori 4-28 tab, PO, l de 50 MG 15:21: Q6H, PRN Laine nn Oral Tablet 00 Pain Score 7-10, X 5 day, # 20 tab, 0 Refill(s), Pharmacy: [id number] Docusate 2020-0 Yes 100 mg = 1 Mem oria Sodium 100 4-28 cap, PO, l MG Oral 15:21: BID, # 28 Laine nn Capsule 00 cap, 0 Refill(s), Pharmacy: [email or web address] #[id number] polyethylen 2020-0 Yes 17 gm, PO, Memoria e glycol 4-28 Daily, X l 3350 oral 15:21: 14 day, # Her philippe powder for 00 12 ea, 0 reconstitut Refill(s), ion Pharmacy: [id number] gabapentin 2020-0 Yes 300 mg = 1 M emoria 300 MG Oral 4-28 cap, PO, l Capsule 15:21: Q8H, # 42 Laine nn 00 cap, 0 Refill(s), Pharmacy: [id number] Acetaminoph 2020-0 Yes 100.4 F, M emoria en 325 MG 4-28 X 5 day, # l Oral Tablet 15:21: 30 tab, 0 H ermann 00 Refill(s), Pharmacy: [email or web address] #[id number] Amoxicillin 2020-0 Yes 875 mg = 1 Memoria 875 MG / 4-28 tab, PO, l Clavulanate 15:21: BID, X 10 H ermann 125 MG Oral 00 day, # 20 Tablet tab, 0 [Augmentin Refill(s), 875-mg] Pharmacy: [email or web address] #[id number] 0.4 ML 2020-0 Yes 40 mg, Memoria Enoxaparin -28 SUB-Q, l sodium 100 15:21: Daily, X Her philippe MG/ML 00 20 day, # Prefilled 20 ea, 0 Syringe Refill(s), [Lovenox] Pharmacy: [facility] #[id number] Acetaminoph 2020-0 Yes 100.4 F, M emoria en 325 MG -28 X 5 day, # l Oral Tablet 15:21: 30 tab, 0 H ermann 00 Refill(s), Pharmacy: [email or web address] #[id number] Amoxicillin 2020-0 Yes 875 mg = 1 Memoria 875 MG / 4-28 tab, PO, l Clavulanate 15:21: BID, X 10 H ermann 125 MG Oral 00 day, # 20 Tablet tab, 0 [Augmentin Refill(s), 875-mg] Pharmacy: [facility] #[id number] 0.4 ML 2020-0 Yes 40 mg, Memoria Enoxaparin - SUB-Q, l sodium 100 15:21: Daily, X Her philippe MG/ML day, # Prefilled 20 ea, 0 Syringe Refill(s), [Lovenox] Pharmacy: [facility] #[id number] tramadol 2020-0 Yes 50 mg = 1 Jose connie hydrochlori 4-28 tab, PO, l de 50 MG 15:21: Q6H, PRN Laine nn Oral Tablet 00 Pain Score 7-10, X 5 day, # 20 tab, 0 Refill(s), Pharmacy: [email or web address] #[id number] Docusate 2020-0 Yes 100 mg = 1 Mem oria Sodium 100 4-28 cap, PO, l MG Oral 15:21: BID, # 28 Laine nn Capsule 00 cap, 0 Refill(s), Pharmacy: [facility] #[id number] polyethylen 2020-0 Yes 17 gm, PO, Memoria e glycol 4-28 Daily, X l 3350 oral 15:21: 14 day, # Her philippe powder for 00 12 ea, 0 reconstitut Refill(s), ion Pharmacy: [email or web address] #[id number] gabapentin 2020-0 Yes 300 mg = 1 M emoria 300 MG Oral 07-16 cap, PO, l Capsule 15:21: Q8H, # 42 Laine nn 00 cap, 0 Refill(s), Pharmacy: [email or web address] #[id number] Ancef No Notes: Memoria - (Same as l 01:30: Ancef) Khurram 00 Ancef 0 No Notes: Memoria - (Same as l 01:30: Ancef) Hydralazine 2019- No Notes: Jose connie - (Same as: l 15:02: Apresoline ) Push over 5 minutes Labetalol 2019-0 No 10 mg, 2 Jose connie 4-27 mL, Route: l 15:02: IVP, Drug form: INJ, Q5Min, Dosing Weight 106.818, kg, PRN Elevated BP, Start date: 07/16/19 10:02:00 CDT, Duration: 5 doses or times, Stop date: 07/17/19 0:00:00 CDT, 0 Fentanyl No Notes: Memoria 07-15 (Same as: l 15:02: Sublimaze) Preservati ve free. Hydromorpho No Notes: Jose connie ne 07-15 Same as l 15:02: Dilaudid Flumazenil No Notes: Memor ia 07-15 (Same as: l 15:02: Romazicon) Naloxone 2019-0 No Notes: Memoria - Same as l 15:02: Narcan Ondansetron 2019-0 No Notes: Jose connie - (Same as: l 15:02: Zofran) MEDICATION WASTE Product Size: 4 mg Product Wasted: ___ mg Hydralazine 2019- No Notes: Jose connie - (Same as: l 15:02: Apresoline ) Push over 5 minutes Labetalol 2019-0 No 10 mg, 2 Jose connie 4-27 mL, Route: l 15:02: IVP, Drug [place] 00 form: INJ, Q5Min, Dosing Weight 106.818, kg, PRN Elevated BP, Start date: 07/16/19 10:02:00 CDT, Duration: 5 doses or times, Stop date: 07/17/19 0:00:00 CDT, 0 Fentanyl No Notes: Memoria 07-15 (Same as: l 15:02: Sublimaze) Preservati ve free. Hydromorpho No Notes: Jose connie ne 07-15 Same as l 15:02: Dilaudid Flumazenil No Notes: Memor ia 07-15 (Same as: l 15:02: Romazicon) Naloxone 0 No Notes: Memoria 07-15 Same as l 15:02: Narcan Ondansetron No Notes: Jose connie 07-15 (Same as: l 15:02: Zofran) MEDICATION WASTE Product Size: 4 mg Product Wasted: ___ mg Ancef No Notes: Memoria 07-15 (Same as l 15:00: Ancef) Ancef No Notes: Memoria 07-15 (Same as l 15:00: Ancef) ondansetron No Route: IV, Memoria (ANES) 07-15 Drug form: l 14:50: INJ, ONCE, Stop date: 07/16/19 9:50:00 CDT ondansetron No Route: IV, Memoria (ANES) 07-15 Drug form: l 14:50: INJ, ONCE, Stop date: 07/16/19 9:50:00 CDT ePHEDrine 0 No Route: IV, Me moria (ANES) 07-15 Drug form: l 13:33: INJ, ONCE, Stop date: 07/16/19 8:33:00 CDT ePHEDrine 2019-0 No Route: IV, Me moria (ANES) 07-15 Drug form: l 13:33: INJ, ONCE, Stop date: 07/16/19 8:33:00 CDT dexamethaso 2019- No Route: IV, Memoria ne (ANES) 07-15 Drug form: l 13:28: INJ, ONCE, Stop date: 07/16/19 8:28:00 CDT Lovenox 2019-0 No Route: Memoria (ANES) 07-15 SUB-Q, l 13:28: Drug form: INJ, ONCE, Stop date: 07/16/19 8:28:00 CDT dexamethaso 2019-0 No Route: IV, Memoria ne (ANES) 07-15 Drug form: l 13:28: INJ, ONCE, Stop date: 07/16/19 8:28:00 CDT Lovenox 2019-0 No Route: Memoria (ANES) 07-15 SUB-Q, l 13:28: Drug form: INJ, ONCE, Stop date: 07/16/19 8:28:00 CDT lidocaine 2019-0 No Route: IV, Me moria (ANES) 07-15 Drug form: l 13:22: INJ, ONCE, Stop date: 07/16/19 8:22:00 CDT propofol 2019-0 No Route: IV, Mem oria (ANES) 07-15 Drug form: l 13:22: INJ, ONCE, Stop date: 07/16/19 8:22:00 CDT succinylcho 2019-0 No Route: IV, Memoria line (ANES) 07-15 Drug form: l 13:22: INJ, ONCE, Stop date: 07/16/19 8:22:00 CDT fentaNYL 2019-0 No Route: IV, Mem oria (ANES) 07-15 Drug form: l 13:22: INJ, ONCE, Stop date: 07/16/19 8:22:00 CDT phenylephri 2019-0 No Route: IV, Memoria ne (ANES) 07-15 Drug form: l 13:22: INJ, ONCE, Stop date: 07/16/19 8:22:00 CDT lidocaine 2019-0 No Route: IV, Me moria (ANES) 07-15 Drug form: l 13:22: INJ, ONCE, Stop date: 07/16/19 8:22:00 CDT propofol 2020-0 No Route: IV, Mem oria (ANES) 07-15 Drug form: l 13:22: INJ, ONCE, Stop date: 07/16/19 8:22:00 CDT succinylcho 2020-0 No Route: IV, Memoria line (ANES) 4-27 Drug form: l 13:22: INJ, ONCE, Stop date: 07/16/19 8:22:00 CDT fentaNYL 2020-0 No Route: IV, Mem oria (ANES) 4-27 Drug form: l 13:22: INJ, ONCE, Stop date: 07/16/19 8:22:00 CDT phenylephri 2020-0 No Route: IV, Memoria ne (ANES) 4- Drug form: l 13:22: INJ, ONCE, Stop date: 07/16/19 8:22:00 CDT Lactated 2020-0 No Route: IV, Mem oria Ringers 4-27 Total l Injection 12:35: Volume: Laine nn IV (ANES) 00 1,000, 1000 mL Start date: 07/16/19 7:35:00 CDT, Stop date: 07/16/19 8:35:00 CDT Lactated 2020-0 No Route: IV, Mem oria Ringers 4-27 Total l Injection 12:35: Volume: Liane nn IV (ANES) 00 1,000, 1000 mL Start date: 07/16/19 7:35:00 CDT, Stop date: 07/16/19 8:35:00 CDT Acetaminoph 2020-0 No Notes: Do M emoria en 4-25 not exceed l 20:15: 4 gm/day. (Same as: Tylenol) Acetaminoph 2020-0 No Notes: Do M emoria en 4-25 not exceed l 20:15: 4 gm/day. [place] 00 (Same as: Tylenol) Miralax 2020-0 No Notes: Memoria 4-25 Dissolve l 14:00: in 8 oz of [place] 00 water or juice. (Same as: Miralax) Miralax 2020-0 No Notes: Memoria 4-25 Dissolve l 14:00: in 8 oz of Khurram 00 water or juice. (Same as: Miralax) remove 2020-0 No Notes: Memoria patch 4-25 Remove l 02:00: patch 12 Khurram 00 hours after applicatio n each day. atorvastati No Notes: Jose connie n 4-25 (Same As: l 02:00: Lipitor) [place] 00 Pramipexole No Notes: Jose connie 4-25 (Same as: l 02:00: Mirapex) Khurram 00 sennosides, No Notes: Jose connie ALF 4-25 (Same as: l 02:00: Senokot) Khurram 00 Mirapex No Notes: Memoria 4-25 (Same as: l 02:00: Mirapex) [place] 00 Mirapex No Notes: Memoria 4-25 (Same as: l 02:00: Mirapex) [place] 00 remove No Notes: Memoria patch 4-25 Remove l 02:00: patch 12 [place] 00 hours after applicatio n each day. atorvastati No Notes: Jose connie n 4-25 (Same As: l 02:00: Lipitor) [place] 00 Pramipexole No Notes: Jose connie 4-25 (Same as: l 02:00: Mirapex) sennosides, No Notes: Jose connie ALF 4-25 (Same as: l 02:00: Senokot) Docusate No Notes: Memoria 4-24 (Same as: l 22:00: Colace) (Do Not Crush) Unasyn No Notes: Memoria 4-24 Dosing l 22:00: based on Ampicillin component (Same as: Unasyn) Docusate No Notes: Memoria 4-24 (Same as: l 22:00: Colace) (Do Not Crush) Unasyn No Notes: Memoria 4-24 Dosing l 22:00: based on Ampicillin component (Same as: Unasyn) Lovenox No 30 mg, Memoria 4-24 Route: l 19:00: SUB-Q, Drug form: INJ, [id number], Dosing Weight 106.818, kg, Start date: 07/13/19 14:00:00 CDT, Duration: 30 day, Stop date: 08/12/19 2:00:00 CDT carbidopa-l 2020-0 No Notes: (S Rafael martel evodopa 4-24 l 19:00: Lovenox 2020-0 No 30 mg, Memoria 4-24 Route: l 19:00: SUB-Q, Drug form: INJ, [id number], Dosing Weight 106.818, kg, Start date: 07/13/19 14:00:00 CDT, Duration: 30 day, Stop date: 08/12/19 2:00:00 CDT carbidopa-l 2020-0 No Notes: (S Rafael milanria evodopa 4-24 l 19:00: ondansetron 2020-0 No Route: IV, Memoria (ANES) 4-24 Drug form: l 18:59: INJ, ONCE, Stop date: 07/13/19 13:59:00 CDT ondansetron 2019-0 No Route: IV, Memoria (ANES) 4-24 Drug form: l 18:59: INJ, ONCE, Stop date: 07/13/19 13:59:00 CDT 8 HR 2019-0 Yes 1 cap, PO, Memoria Carbidopa 4-24 TID, # 270 l 61.25 MG / 18:48: tab, 0 Laine nn Levodopa 00 Refill(s) 245 MG Extended Release Oral Capsule [Rytary] atorvastati 2019-0 Yes 10 mg = 1 M emoria n 10 mg 4-24 tab, PO, l oral tablet 18:48: Daily, # He rmann 00 90 tab, 0 Refill(s) DULoxetine 2019-0 Yes 60 mg = 1 Me moria 60 mg oral 4-24 cap, PO, l delayed 18:48: Daily, Khurram release 00 TAKE WITH capsule FOOD, # 90 tab, 0 Refill(s) Rytary 2020-0 Yes 1 cap, PO, Memor ia 61.25 4-24 TID, # 270 l mg-245 mg 18:48: tab, 0 Francis n oral 00 Refill(s) capsule, extended release pramipexole 2019-0 Yes 1 mg = 2 Me moria 0.5 mg oral 4-24 tab, PO, l tablet 18:48: QPM, # 180 Laine nn 00 tab, 0 Refill(s) Rytary 2020-0 Yes 1 cap, PO, Memor ia 61.25 4-24 TID, # 270 l mg-245 mg 18:48: tab, 0 Francis n oral 00 Refill(s) capsule, extended release pramipexole 2020-0 Yes 1 mg = 2 Me moria 0.5 mg oral 4-24 tab, PO, l tablet 18:48: QPM, # 180 Laine nn 00 tab, 0 Refill(s) 8 HR 2020-0 Yes 1 cap, PO, Memoria Carbidopa 4-24 TID, # 270 l 61.25 MG / 18:48: tab, 0 Laine nn Levodopa 00 Refill(s) 245 MG Extended Release Oral Capsule [Rytary] atorvastati 2020-0 Yes 10 mg = 1 M emoria n 10 mg 4-24 tab, PO, l oral tablet 18:48: Daily, # He rmann 00 90 tab, 0 Refill(s) DULoxetine 2020-0 Yes 60 mg = 1 Me moria 60 mg oral 4-24 cap, PO, l delayed 18:48: Daily, Khurram release 00 TAKE WITH capsule FOOD, # 90 tab, 0 Refill(s) dexamethaso 2020-0 No Route: IV, Memoria ne (ANES) 4-24 Drug form: l 18:38: INJ, ONCE, Stop date: 07/13/19 13:38:00 CDT dexamethaso 2020-0 No Route: IV, Memoria ne (ANES) 4-24 Drug form: l 18:38: INJ, ONCE, Stop date: 07/13/19 13:38:00 CDT phenylephri 2020-0 No Route: IV, Memoria ne (ANES) 4-24 Drug form: l 18:33: INJ, ONCE, Stop date: 07/13/19 13:33:00 CDT phenylephri 2020-0 No Route: IV, Memoria ne (ANES) 4-24 Drug form: l 18:33: INJ, ONCE, Stop date: 07/13/19 13:33:00 CDT ePHEDrine 2020-0 No Route: IV, Me moria (ANES) 4-24 Drug form: l 18:28: INJ, ONCE, Stop date: 07/13/19 13:28:00 CDT ePHEDrine 2020-0 No Route: IV, Me moria (ANES) 4-24 Drug form: l 18:28: INJ, ONCE, Stop date: 07/13/19 13:28:00 CDT lidocaine 2020-0 No Route: IV, Me moria (ANES) -24 Drug form: l 18:08: INJ, ONCE, Stop date: 07/13/19 13:08:00 CDT propofol 2020-0 No Route: IV, Mem oria (ANES) -24 Drug form: l 18:08: INJ, ONCE, Stop date: 07/13/19 13:08:00 CDT succinylcho 2020-0 No Route: IV, Memoria line (ANES) 07-12 Drug form: l 18:08: INJ, ONCE, Stop date: 07/13/19 13:08:00 CDT fentaNYL 2020-0 No Route: IV, Mem oria (ANES) - Drug form: l 18:08: INJ, ONCE, Stop date: 07/13/19 13:08:00 CDT Hydralazine 2019-0 No Notes: Jose connie -24 (Same as: l 18:08: Apresoline ) Ketorolac 2020-0 No 4 days. Jose connie -24 l 18:08: Khurram 00 Acetaminoph 2019-0 No Notes: Max Memoria en -24 acetaminop l 18:08: hen 4000 mg/day (4 gm/day). (Same as: Tylenol Extra Strength) Oxycodone 2019-0 No Notes: Memori a Hydrochlori -24 (Same as: l de 5 MG 18:08: Roxicodone Herm kathleen Oral Tablet ) Flumazenil 2019-0 No Notes: Memor ia 4-24 (Same as: l 18:08: Romazicon) Naloxone 2019-0 No Notes: Memoria 4-24 Same as l 18:08: Narcan Ondansetron 2020-0 No Notes: Jose connie 4-24 (Same as: l 18:08: Zofran) MEDICATION WASTE Product Size: 4 mg Product Wasted: ___ mg lidocaine 2020-0 No Route: IV, Me moria (ANES) 4-24 Drug form: l 18:08: INJ, ONCE, Stop date: 07/13/19 13:08:00 CDT propofol 2020-0 No Route: IV, Mem oria (ANES) 4-24 Drug form: l 18:08: INJ, ONCE, Stop date: 07/13/19 13:08:00 CDT succinylcho 2020-0 No Route: IV, Memoria line (ANES) 4-24 Drug form: l 18:08: INJ, ONCE, Stop date: 07/13/19 13:08:00 CDT fentaNYL 2020-0 No Route: IV, Mem oria (ANES) 4-24 Drug form: l 18:08: INJ, ONCE, Stop date: 07/13/19 13:08:00 CDT Hydralazine 2020-0 No Notes: Jose connie 4-24 (Same as: l 18:08: Apresoline ) Ketorolac 2020-0 No 4 days. Jose connie 4-24 l 18:08: Khurram 00 Acetaminoph 2020-0 No Notes: Max Memoria en 4-24 acetaminop l 18:08: hen 4000 mg/day (4 gm/day). (Same as: Tylenol Extra Strength) Oxycodone 2019-0 No Notes: Memori a Hydrochlori 4-24 (Same as: l de 5 MG 18:08: Roxicodone Herm kathleen Oral Tablet ) Flumazenil 2020-0 No Notes: Memor ia 4-24 (Same as: l 18:08: Romazicon) Naloxone 2020-0 No Notes: Memoria 4-24 Same as l 18:08: Narcan Ondansetron 2020-0 No Notes: Jose connie 4-24 (Same as: l 18:08: Zofran) MEDICATION WASTE Product Size: 4 mg Product Wasted: ___ mg Dextrose 2020-0 No 12.5 gm, Memor ia 50% Syringe 4-24 25 mL, l (D50W) 18:06: Route: [place] 00 IVP, Drug Form: INJ, Dosing Weight 106.818, kg, PRN, PRN Blood Glucose Results, Start date: 07/13/19 13:06:00 CDT, Duration: 30 day, Stop date: 08/12/19 13:05:00 CDT, 0 Glucagon 2020-0 No 1 mg, Memoria 4-24 Route: IM, l 18:06: Drug form: PDR/INJ, PRN, Dosing Weight 106.818, kg, PRN Blood Glucose Results, Start date: 07/13/19 13:06:00 CDT, Duration: 30 day, Stop date: 08/12/19 13:05:00 CDT, 0 Dextrose 2020-0 No 12.5 gm, Memor ia 50% Syringe 4-24 25 mL, l (D50W) 18:06: Route: IVP, Drug Form: INJ, Dosing Weight 106.818, kg, PRN, PRN Blood Glucose Results, Start date: 07/13/19 13:06:00 CDT, Duration: 30 day, Stop date: 08/12/19 13:05:00 CDT, 0 Glucagon 2020-0 No 1 mg, Memoria 4-24 Route: IM, l 18:06: Drug form: PDR/INJ, PRN, Dosing Weight 106.818, kg, PRN Blood Glucose Results, Start date: 07/13/19 13:06:00 CDT, Duration: 30 day, Stop date: 08/12/19 13:05:00 CDT, 0 ceFAZolin 2020-0 No Route: IV, Me moria (ANES) 4-24 Drug form: l 17:58: INJ, ONCE, Stop date: 07/13/19 12:58:00 CDT ceFAZolin 2020-0 No Route: IV, Me moria (ANES) 4-24 Drug form: l 17:58: INJ, ONCE, Stop date: 07/13/19 12:58:00 CDT Lactated 2020-0 No Route: IV, Mem oria Ringers 4-24 Total l Injection 17:22: Volume: Laine nn IV (ANES) 00 1,000, 1000 mL Start date: 07/13/19 12:22:00 CDT, Stop date: 07/13/19 13:22:00 CDT Lactated 2019-0 No Route: IV, Mem oria Ringers 4-24 Total l Injection 17:22: Volume: Laine nn IV (ANES) 00 1,000, 1000 mL Start date: 07/13/19 12:22:00 CDT, Stop date: 07/13/19 13:22:00 CDT Penicillin 2019-0 No Notes: Memor ia G 4-24 (Same as: l 17:00: Pfizerpen) MEDICATION WASTE Product Size: 5,000,000 unit Product Wasted: ___ unit Penicillin 0 No Notes: Memor ia G 4-24 (Same as: l 17:00: Pfizerpen) MEDICATION WASTE Product Size: 5,000,000 unit Product Wasted: ___ unit Ancef 0 No Notes: Memoria 4-24 (Same as l 15:00: Ancef) Penicillin 2019-0 No 5,000,000 Me moria G 4-24 unit, l 15:00: Route: [place] IVPB, ABXQ6H, Dosing Weight 106.818, kg, Start date: 07/13/19 10:00:00 CDT, Duration: 30 day, Stop date: 08/12/19 4:00:00 CDT Ancef No Notes: Memoria 4-24 (Same as l 15:00: Ancef) Penicillin 2019-0 No 5,000,000 Me moria G 4-24 unit, l 15:00: Route: [place] IVPB, ABXQ6H, Dosing Weight 106.818, kg, Start date: 07/13/19 10:00:00 CDT, Duration: 30 day, Stop date: 08/12/19 4:00:00 CDT Lidocaine 2019-0 No Notes: Memori a Hydrochlori 4-24 Apply only l de 0.05 14:00: once for Francis n MG/MG 00 up to 12 Transdermal hours in a Patch 24-hour [Lidoderm] period (12 hours on and 12 hours off). (Same as: Lidoderm) "Remove old patch before applicatio n of new patch" Naproxen No Notes: Memoria 4-24 (Same as: l 14:00: Naprosyn) Take with food. Enoxaparin No Notes: Memor ia 4-24 (Same as: l 14:00: Lovenox) Aspirin 2019-0 No Notes: Do Memor ia 4-24 not crush l 14:00: or chew. (Same As: Ecotrin) Carbidopa 0 No 1 tab, Memori a 50 MG / 4-24 Route: PO, l Levodopa 14:00: Drug Form: Her philippe 200 MG 00 ERTAB, Extended Dosing Release Weight Tablet 106.818, kg, TID, Start date: 07/13/19 9:00:00 CDT, Duration: 30 day, Stop date: 08/11/19 17:00:00 CDT duloxetine No Notes: Memor ia 4-24 (Same as: l 14:00: Cymbalta) (Do Not Crush) Naltrexone No 50 mg, Memor ia 4-24 Route: PO, l 14:00: Daily, Dosing Weight 106.818, kg, Start date: 07/13/19 9:00:00 CDT, Duration: 30 day, Stop date: 08/11/19 9:00:00 CDT Pramipexole 0 No Notes: Jose connie 4-24 (Same as: l 14:00: Mirapex) Lidocaine 0 No Notes: Memori a Hydrochlori 4-24 Apply only l de 0.05 14:00: once for Francis n MG/MG 00 up to 12 Transdermal hours in a Patch 24-hour [Lidoderm] period (12 hours on and 12 hours off). (Same as: Lidoderm) "Remove old patch before applicatio n of new patch" Naproxen No Notes: Memoria 4-24 (Same as: l 14:00: Naprosyn) Take with food. Enoxaparin 0 No Notes: Memor ia 4-24 (Same as: l 14:00: Lovenox) Aspirin 0 No Notes: Do Memor ia 4-24 not crush l 14:00: or chew. (Same As: Ecotrin) Carbidopa No 1 tab, Memori a 50 MG / 4-24 Route: PO, l Levodopa 14:00: Drug Form: Her philippe 200 MG 00 ERTAB, Extended Dosing Release Weight Tablet 106.818, kg, TID, Start date: 07/13/19 9:00:00 CDT, Duration: 30 day, Stop date: 08/11/19 17:00:00 CDT duloxetine No Notes: Memor ia 4-24 (Same as: l 14:00: Cymbalta) (Do Not Crush) Naltrexone No 50 mg, Memor ia 4-24 Route: PO, l 14:00: Daily, Dosing Weight 106.818, kg, Start date: 07/13/19 9:00:00 CDT, Duration: 30 day, Stop date: 08/11/19 9:00:00 CDT Pramipexole No Notes: Jose connie 4-24 (Same as: l 14:00: Mirapex) Tramadol No Notes: Not Mem oria 4-24 to exceed l 13:25: 400mg/day. (Same As: Ultram) Tramadol No Notes: Not Mem oria 4-24 to exceed l 13:25: 400mg/day. (Same As: Ultram) Acetaminoph No Notes: Max Memoria en -24 acetaminop l 13:24: hen 4000 mg/day (4 gm/day). (Same as: Tylenol Extra Strength) gabapentin No Notes: Memor ia 4-24 (Same as: l 13:24: Neurontin) Isolyte S 0 No Notes: Memori a PH 7.4 4-24 (Same as: l 1,000 mL 13:24: Isolyte S Herm kathleen 00 PH7.4, Normosol-R PH 7.4, Plasma-Lyt e A ) Acetaminoph No Notes: Max Memoria en 4-24 acetaminop l 13:24: hen 4000 Khurram 00 mg/day (4 gm/day). (Same as: Tylenol Extra Strength) gabapentin No Notes: Memor ia -24 (Same as: l 13:24: Neurontin) [place] 00 Isolyte S No Notes: Memori a PH 7.4 4-24 (Same as: l 1,000 mL 13:24: Isolyte S Herm kathleen 00 PH7.4, Normosol-R PH 7.4, Plasma-Lyt e A ) pramipexole No 0.5 mg = 1 Memoria 0.5 mg oral 4-24 tab, PO, l tablet 13:01: Bedtime, # Laine nn 00 30 tab, 1 Refill(s) DULoxetine No 60 mg = 1 Me moria 60 mg oral 4-24 cap, PO, l delayed 13:01: Daily, # Francis n release 00 30 cap, 0 capsule Refill(s) Naltrexone 0 No 50 mg, PO, M emoria 4-24 Daily, 0 l 13:01: Refill(s) [place] 00 atorvastati 0 No 10 mg = 1 M emoria n 10 mg 4-24 tab, PO, l oral tablet 13:01: Bedtime, # Khurram 00 30 tab, 0 Refill(s) Aspirin 2019-0 Yes 81 mg, PO, Jose connie 4-24 Daily, 0 l 13:01: Refill(s) [place] 00 8 HR 0 No 1 cap, PO, Memoria Carbidopa 4-24 TID, 0 l 61.25 MG / 13:01: Refill(s) rmann Levodopa 00 245 MG Extended Release Oral Capsule aspirin 2019-0 Yes 81 mg, PO, Jose connie 4-24 Daily, 0 l 13:01: Refill(s) Khurram aspirin 2020-0 Yes 81 mg, PO, Jose connie 4-24 Daily, 0 l 13:01: Refill(s) Khurram 00 pramipexole 2019-0 No 0.5 mg = 1 Memoria 0.5 mg oral 4-24 tab, PO, l tablet 13:01: Bedtime, # Laine nn 00 30 tab, 1 Refill(s) DULoxetine 2020-0 No 60 mg = 1 Me moria 60 mg oral 4-24 cap, PO, l delayed 13:01: Daily, # Francis n release 00 30 cap, 0 capsule Refill(s) Naltrexone 2020-0 No 50 mg, PO, M emoria 4-24 Daily, 0 l 13:01: Refill(s) atorvastati 2019-0 No 10 mg = 1 M emoria n 10 mg 4-24 tab, PO, l oral tablet 13:01: Bedtime, # Khurram 00 30 tab, 0 Refill(s) Aspirin 2020-0 Yes 81 mg, PO, Jose connie 4-24 Daily, 0 l 13:01: Refill(s) Khurram 00 8 HR 2019-0 No 1 cap, PO, Memoria Carbidopa 4-24 TID, 0 l 61.25 MG / 13:01: Refill(s) He rmann Levodopa 00 245 MG Extended Release Oral Capsule Morphine 2019-0 No 4 mg, Memoria 4-24 Route: l 11:32: IVP, ONCE, Dosing Weight 106.818, kg, Priority: STAT, Start date: 07/13/19 6:32:00 CDT, Stop date: 07/13/19 6:32:00 CDT Morphine 2019-0 No 4 mg, Memoria 4-24 Route: l 11:32: IVP, ONCE, Dosing Weight 106.818, kg, Priority: STAT, Start date: 07/13/19 6:32:00 CDT, Stop date: 07/13/19 6:32:00 CDT gabapentin 2017-0 Yes Nino not Memor ia 6-08 [place] defined l 02:02: Requip Yes Nino not Memoria 6-08 [place] defined l 02:02: carvedilol 2017- Yes Nino not Memor ia 6-08 [place] defined l 02:02: 36 Aspir 81 Yes Nino not Memoria 6-08 [place] defined l 02:02: Vitamin D3 2017- Yes Nino not Memor ia 6-08 [place] defined l 02:02: Khurram 36 clonidine Yes Nino not Memori a 6-08 [place] defined l 02:02: Khurram 36 duloxetine Yes Nino not Memor ia 6-08 [place] defined l 02:02: Khurram 36 gabapentin Yes Nino not Memor ia 6-08 [place] defined l 02:02: Khurram 36 Requip Yes Nino not Memoria 6-08 [place] defined l 02:02: [place] 36 carvedilol Yes Nino not Memor ia 6-08 [place] defined l 02:02: [place] 36 Aspir 81 Yes Nino not Memoria 6-08 [place] defined l 02:02: Khurram 36 Vitamin D3 Yes Nino not Memor ia 6-08 [place] defined l 02:02: Khurram 36 clonidine Yes Nino not Memori a 6-08 [place] defined l 02:02: Khurram 36 duloxetine Yes Nino not Memor ia 6-08 [place] defined l 02:02: Khurram 36 1 ML No 25 mg = 1 Memoria Meperidine 2-20 mL, IV, l Hydrochlori 15:23: Q4H, PRN He rmann de 25 MG/ML 00 Pain, X 1 Prefilled day, # 2 Syringe mL, 0 [Demerol] Refill(s), given to patient 1 ML No 25 mg = 1 Memoria Meperidine 2-20 mL, IV, l Hydrochlori 15:23: Q4H, PRN He rmann de 25 MG/ML 00 Pain, X 1 Prefilled day, # 2 Syringe mL, 0 [Demerol] Refill(s), given to patient Saline Lock 2016-03 No 10 mL, Jose connie Flush 2-13 Soln, IV l 14:17: Push, As Indicated PRN for flush, first dose 03/02/17 8:17:00 [employer] SCI[employer] LR 1,000 mL 2016-03 No 1,000 mL, M emoria 2-13 IV, 75 l 14:17: mL/hr, Khurram start date 03/02/17 8:17:00 [employer] SCI[employer]IST Demerol HCl 2016-03 No 12.5 mg = M emoria 2-13 0.25 mL, l 14:17: Injection, Hkurram 00 IV Push, Once PRN for shivers, first dose 03/02/17 8:17:00 [employer] SCI[employer]IST Dilaudid 2016-03 No 0.5 mg = Memor ia 2-13 0.25 mL, l 14:17: Injection, Khurram 00 IV Push, q10min PRN for pain severe (7-10), first dose 03/02/17 8:17:00 [employer] SCI[employer] ondansetron 2016-03 No 4 mg = 2 Me moria 2-13 mL, l 14:17: Injection, [place] 00 IV Push, q15min PRN for nausea, order duration: 2 doses, first dose 03/02/17 8:17:00 [employer] SCI[employer]IST, stop date Limited # of times promethazin 2016-03 No 12.5 mg = M emoria e 2-13 0.5 mL, l 14:17: Injection, [place] 00 IM, Once PRN for vomiting, first dose 03/02/17 8:17:00 [employer] SCI[employer]IST Xopenex 2016-03 No 0.63 mg = Memor ia 0.63 mg/3 2-13 3 mL, l mL 14:17: Soln, NEB, [place] inhalation 00 Once PRN solution for wheezing, first dose 03/02/17 8:17:00 [employer] SCI[employer]IST Saline Lock 2016-03 No 10 mL, Jose connie Flush 2-13 Soln, IV l 14:17: Push, As Khurram 00 Indicated PRN for flush, first dose 03/02/17 8:17:00 [employer]ICULTURAL SCIENTIST LR 1,000 mL 2016-03 No 1,000 mL, M emoria 2-13 IV, 75 l 14:17: mL/hr, [place] 00 start date 03/02/17 8:17:00 [employer] SCI[employer]IST Demerol HCl 2016-03 No 12.5 mg = M emoria 2-13 0.25 mL, l 14:17: Injection, Khurram 00 IV Push, Once PRN for shivers, first dose 03/02/17 8:17:00 [employer] SCI[employer]IST Dilaudid 2016-03 No 0.5 mg = Memor ia 2-13 0.25 mL, l 14:17: Injection, [place] 00 IV Push, q10min PRN for pain severe (7-10), first dose 03/02/17 8:17:00 [employer] SCI[employer]IST ondansetron 2016-03 No 4 mg = 2 Me moria 2-13 mL, l 14:17: Injection, IV Push, q15min PRN for nausea, order duration: 2 doses, first dose 03/02/17 8:17:00 [employer] SCI[employer]IST, stop date Limited # of times promethazin 2016-03 No 12.5 mg = M emoria e 2-13 0.5 mL, l 14:17: Injection, 00 IM, Once PRN for vomiting, first dose 03/02/17 8:17:00 [employer] SCI[employer]IST Xopenex 2016-03 No 0.63 mg = Memor ia 0.63 mg/3 2-13 3 mL, l mL 14:17: Soln, NEB, [place] inhalation 00 Once PRN solution for wheezing, first dose 03/02/17 8:17:00 A[employer]ICULTURAL SCIENTIST [facility] [place] 2016-03 No 400 mL, Memoria Medication 2-13 Soln-IV, l 14:09: IV, Once, first dose 03/02/17 8:09:00 [employer] SCIENTIST, stop date 03/02/17 8:09:00 A[employer]URAL SCIENTIST [facility] [place] 2016-03 No 400 mL, Memoria Medication 2-13 Soln-IV, l 14:09: IV, Once, first dose 03/02/17 8:09:00 [employer]IC[employer]URAL SCIENTIST, stop date 03/02/17 8:09:00 [employer] SCI[employer]IST lidocaine 2016-03 No 1 mL, Memoria 2-13 Injection, l 13:57: IV, Once, first dose 03/02/17 7:57:00 [employer]IC[employer] SCIENTIST, stop date 03/02/17 7:57:00 [employer] SCI[employer]IST propofol 2016-03 No 30 mg = 3 Jose connie 2-13 mL, l 13:57: Emulsion, Khurram 00 IV, Once, first dose 03/02/17 7:57:00 [employer]IC[employer]URAL SCI[employer]IST, stop date 03/02/17 7:57:00 [employer] SCI[employer]IST lidocaine 2016-03 No 1 mL, Memoria 2-13 Injection, l 13:57: IV, Once, first dose 03/02/17 7:57:00 A[employer]IC[employer]URAL SCIENTIST, stop date 03/02/17 7:57:00 [employer]IC[employer] SCIENTIST propofol 2016-03 No 30 mg = 3 Jose connie 2-13 mL, l 13:57: Emulsion, [place] 00 IV, Once, first dose 03/02/17 7:57:00 [employer]IC[employer]URAL SCIENTIST, stop date 03/02/17 7:57:00 [employer] SCI[employer]IST midazolam 2016- No 1 mg = 1 Jose connie 2-13 mL, l 13:54: Injection, Khurram 00 IV, Once, first dose 03/02/17 7:54:00 [employer]IC[employer]URAL SCIENTIST, stop date 03/02/17 7:54:00 [employer]IC[employer]URAL SCIENTIST fentaNYL 2016-03 No 50 mcg = 1 Mem oria 2-13 mL, l 13:54: Injection, [place] 00 IV, Once, first dose 03/02/17 7:54:00 A[employer]ICULTURAL SCIENTIST, stop date 03/02/17 7:54:00 [employer]IC[employer]URAL SCIENTIST midazolam 2016-03 No 1 mg = 1 Jose connie 2-13 mL, l 13:54: Injection, Khurram 00 IV, Once, first dose 03/02/17 7:54:00 A[employer]ICULTURAL SCIENTIST, stop date 03/02/17 7:54:00 A[employer]ICULTURAL SCIENTIST fentaNYL 2016-03 No 50 mcg = 1 Mem oria 2-13 mL, l 13:54: Injection, Khurram 00 IV, Once, first dose 03/02/17 7:54:00 A[employer]ICULTURAL SCIENTIST, stop date 03/02/17 7:54:00 A[employer]ICULTURAL SCIENTIST fentaNYL 2016-03 No 50 mcg = 1 Mem oria 2-13 mL, l 13:49: Injection, Khurram 00 IV, Once, first dose 03/02/17 7:49:00 A[employer]ICULTURAL SCIENTIST, stop date 03/02/17 7:49:00 [employer]IC[employer]URAL SCIENTIST midazolam 2016-03 No 1 mg = 1 Jose cnonie 2-13 mL, l 13:49: Injection, [place] 00 IV, Once, first dose 03/02/17 7:49:00 A[employer]ICULTURAL SCIENTIST, stop date 03/02/17 7:49:00 A[employer]ICULTURAL SCIENTIST fentaNYL 2016-03 No 50 mcg = 1 Mem oria 2-13 mL, l 13:49: Injection, Khurram 00 IV, Once, first dose 03/02/17 7:49:00 A[employer]ICULTURAL SCIENTIST, stop date 03/02/17 7:49:00 A[employer]ICULTURAL SCIENTIST midazolam 2016-03 No 1 mg = 1 Jose connie 2-13 mL, l 13:49: Injection, [place] 00 IV, Once, first dose 03/02/17 7:49:00 A[employer]ICULTURAL SCIENTIST, stop date 03/02/17 7:49:00 A[employer]ICULTURAL SCIENTIST LR 1,000 mL 2016-03 No 1,000 mL, M emoria 2-13 IV, 30 l 12:23: mL/hr, [place] start date 03/02/17 6:23:00 [employer]ICULTURAL SCIENTIST Lidocaine 2016-03 Yes 0.2 mL, Memor ia 2% 0.2 mL 2-13 Injection, l IV Start 12:23: Subcutaneo [facility] [[facility]] 00 us, Once PRN for other (see comment), first dose 03/02/17 6:23:00 AGRICULTURAL SCIENTIST LR 1,000 mL 2016-03 No 1,000 mL, M emoria 2-13 IV, 30 l 12:23: mL/hr, Khurram start date 03/02/17 6:23:00 A[employer]ICULTURAL SCIENTIST Lidocaine 2016-03 Yes 0.2 mL, Memor ia 2% 0.2 mL 2-13 Injection, l IV Start 12:23: Subcutaneo [facility] [[facility]] 00 us, Once PRN for other (see comment), first dose 03/02/17 6:23:00 [employer] meloxicam 2016-03 Yes 15 mg = 1 Mem oria 15 mg oral 2-11 tabs, l tablet 23:19: Oral, [place] 00 Daily, back pain Aspirin 81 2016-03 Yes 81 mg = 1 Me moria MG Oral 2-11 tabs, l Tablet 23:19: Oral, [place] Daily, heart health Vitamin D3 2016-03 Yes 1,000 Memori a 1000 intl 2-11 IntUnit = l units oral 23:19: 1 caps, Herm kathleen capsule 00 Oral, Daily, supplement iron 2016-03 Yes 0 Memoria polysacchar 2-11 Refill(s), l janice (as 23:19: supplement Herm kathleen elemental 00 iron) 60 mg oral capsule ropinirole 2016-03 Yes 2 mg = 1 Mem oria 2 MG Oral 2-11 tabs, l Tablet 23:19: Oral, BID, Laine nn 00 Restless Leg Syndrome carvedilol 2016-03 Yes 25 mg = 1 Me moria 25 MG Oral 2-11 tabs, l Tablet 23:19: Oral, BID, Laine nn 00 HTN; A-Fib gabapentin 2016-03 Yes 300 mg = 1 M emoria 300 mg oral 2-11 caps, l capsule 23:19: Oral, TID, Herm kathleen 00 nerve pain meloxicam 2016-03 Yes 15 mg = 1 Mem oria 15 mg oral 2-11 tabs, l tablet 23:19: Oral, Khurram 00 Daily, back pain Aspirin 81 2016-03 Yes 81 mg = 1 Me moria MG Oral 2-11 tabs, l Tablet 23:19: Oral, [place] 00 Daily, heart health Vitamin D3 2016-03 Yes 1,000 Memori a 1000 intl 2-11 IntUnit = l units oral 23:19: 1 caps, Herm kathleen capsule 00 Oral, Daily, supplement iron 2016-03 Yes 0 Memoria polysacchar 2-11 Refill(s), l janice (as 23:19: supplement Herm kathleen elemental 00 iron) 60 mg oral capsule ropinirole 2016-03 Yes 2 mg = 1 Mem oria 2 MG Oral 2-11 tabs, l Tablet 23:19: Oral, BID, L[place] nn 00 Restless Leg Syndrome carvedilol 2016-03 Yes 25 mg = 1 Me moria 25 MG Oral 2-11 tabs, l Tablet 23:19: Oral, BID, Laien nn 00 HTN; A-Fib gabapentin 2016-03 Yes 300 mg = 1 M emoria 300 mg oral 2-11 caps, l capsule 23:19: Oral, TID, Herm kathleen 00 nerve pain Vitamin D3 Yes Nino not Memor ia 6-16 [place] defined l 02:00: Khurram duloxetine Yes Nino not Memor ia 6-16 [place] defined l 02:00: Khurram Requip Yes Nino not Memoria 6-16 [place] defined l 02:00: Khurram Aspir 81 Yes Nino not Memoria 6-16 [place] defined l 02:00: Khurram gabapentin Yes Nino not Memor ia 6-16 [place] defined l 02:00: Khurram carvedilol Yes Nino not Memor ia 6-16 [place] defined l 02:00: Khurram clonidine Yes Nino not Memori a 6-16 [place] defined l 02:00: Khurram Vitamin D3 Yes Nino not Memor ia 6-16 [place] defined l 02:00: Khurram duloxetine Yes Nino not Memor ia 6-16 [place] defined l 02:00: [place] 03 Requip Yes Nino not Memoria 6-16 [place] defined l 02:00: Khurram 03 Aspir 81 Yes Nino not Memoria 6-16 [place] defined l 02:00: Khurram 03 gabapentin Yes Nino not Memor ia 6-16 [place] defined l 02:00: Khurram 03 carvedilol Yes Nino not Memor ia 6-16 [place] defined l 02:00: [place] 03 clonidine Yes Nino not Memori a 6-16 [place] defined l 02:00: [place] 03 Immunizations Ordered Immunization Filled Immunization Date Status Commen ts Source Name Name diphtheria/pertussis 2019-07-13 Completed Jose rial , acel/tetanus adult 11:36:00 Herm kathleen diphtheria/pertussis 2019-07-13 Completed Jose rial , acel/tetanus adult 11:36:00 Herm kathleen Vital Signs Vital Name Observation Time Observation Value Comments Source Systolic (mm Hg) 2022-07-29 21:11:00 Jose rial [place] Diastolic (mm Hg) 2022-07-29 21:11:00 [facility] Weight 2022-07-29 21:11:00 [facility] Body temperature 2022-05-17 14:34:00 36.61 [facility] Body height 2022-05-17 14:34:00 182.9 cm [facility] Body weight 2022-05-17 14:34:00 104.3 kg [facility] BMI 2022-05-17 14:34:00 31.19 kg/m2 [facility] Systolic (mm Hg) 2022-05-11 20:52:00 Jose rial [facility] Diastolic (mm Hg) 2022-05-11 20:52:00 [facility] 2022-05-11 20:52:00 [facility] Systolic (mm Hg) 2020-08-20 19:24:00 Jose rial Khurram Diastolic (mm Hg) 2020-08-20 19:24:00 [facility] Height 2020-08-20 19:24:00 182.88 cm [facility] Weight 2020-08-20 19:24:00 [facility] [place] BMI Calculated 2020-08-20 19:24:00 [facility] [place] Systolic (mm Hg) 2020-05-19 20:19:00 Jose rial [facility] Diastolic (mm Hg) 2020-05-19 20:19:00 Mem o[facility] Height 2020-05-19 20:19:00 182.88 cm [facility] [place] Weight 2020-05-19 20:19:00 [facility] [place] BMI Calculated 2020-05-19 20:19:00 [facility] [place] Systolic (mm Hg) 2020-04-30 16:55:00 Jose rial [place] Diastolic (mm Hg) 2020-04-30 16:55:00 Mem [facility] [place] Heart Rate 2020-04-30 16:55:00 [facility] [place] Height 2020-04-30 16:55:00 182.88 cm [facility] [place] Weight 2020-04-30 16:55:00 [facility] [place] BMI Calculated 2020-04-30 16:55:00 [facility] [place] Temperature Oral (F) 2019-07-20 00:04:00 98.2 F [facility] [place] Heart Rate 2019-07-20 00:04:00 [facility] [place] Respitory Rate 2019-07-20 00:04:00 [facility] Systolic (mm Hg) 2019-07-20 00:04:00 Jose rial Kh[facility] Diastolic (mm Hg) 2019-07-20 00:04:00 Mem [facility] [place] Systolic (mm Hg) 2019-07-19 18:42:00 Jose rial [facility] Diastolic (mm Hg) 2019-07-19 18:42:00 Mem o[facility] Heart Rate 2019-07-19 18:42:00 [facility] Respitory Rate 2019-07-19 18:42:00 [facility] Temperature Oral (F) 2019-07-19 18:42:00 97.8 F [facility] [place] Temperature Oral (F) 2019-07-17 13:00:00 97.9 F [facility] Respitory Rate 2019-07-17 13:00:00 [facility] [place] Systolic (mm Hg) 2019-07-17 13:00:00 Jose rial [place] Diastolic (mm Hg) 2019-07-17 13:00:00 Mem o[facility] [place] Heart Rate 2019-07-17 13:00:00 [facility] [place] Temperature Oral (F) 2019-07-17 09:06:00 98.3 F [facility] Heart Rate 2019-07-17 09:06:00 [facility] Respitory Rate 2019-07-17 09:06:00 [facility] [place] Systolic (mm Hg) 2019-07-17 09:06:00 Jose rial [place] Diastolic (mm Hg) 2019-07-17 09:06:00 [facility] [place] Temperature Oral (F) 2019-07-17 05:21:00 98.3 F [facility] Heart Rate 2019-07-17 05:21:00 [facility] Respitory Rate 2019-07-17 05:21:00 [facility] Systolic (mm Hg) 2019-07-17 05:21:00 Jose rial [facility] Diastolic (mm Hg) 2019-07-17 05:21:00 Mem o[facility] Height 2019-07-13 21:00:00 182.88 cm [facility] Weight 2019-07-13 21:00:00 [facility] [place] BMI Calculated 2019-07-13 21:00:00 [facility] Systolic (mm Hg) 2017-05-10 14:00:00 Jose rial [facility] Diastolic (mm Hg) 2017-05-10 14:00:00 Mem o[facility] Respitory Rate 2017-05-10 14:00:00 [facility] Temperature Oral (F) 2017-05-10 14:00:00 98.5 F [facility] [place] Weight 2017-05-10 13:47:00 [facility] BMI Calculated 2017-05-10 13:47:00 [facility] [place] Height 2017-05-10 13:47:00 182.88 cm [facility] Systolic (mm Hg) 2017-03-02 15:08:00 Jose rial [place] Diastolic (mm Hg) 2017-03-02 15:08:00 Mem [facility] [place] Respitory Rate 2017-03-02 15:08:00 [facility] Respitory Rate 2017-03-02 14:20:00 [facility] [place] Systolic (mm Hg) 2017-03-02 14:20:00 Jose rial [place] Diastolic (mm Hg) 2017-03-02 14:20:00 Mem orial [facility] Heart Rate 2017-03-02 14:20:00 [facility] Heart Rate 2017-03-02 14:10:00 [facility] [place] Respitory Rate 2017-03-02 14:10:00 [facility] Systolic (mm Hg) 2017-03-02 14:10:00 Jose rial [place] Diastolic (mm Hg) 2017-03-02 14:10:00 Mem [facility] [place] Temperature Oral (F) 2017-03-02 14:00:00 36.7 Ariella [facility] Heart Rate 2017-03-02 14:00:00 [facility] [place] Temperature Oral (F) 2017-03-02 12:31:00 36.6 Ariella [facility] [place] Height 2017-03-02 12:31:00 182.88 cm [facility] [place] Height 2017-02-28 22:56:00 182.88 cm [facility] [place] Temperature Oral (F) 2016-08-04 20:00:00 97.7 F [facility] [place] Diastolic (mm Hg) 2016-08-04 20:00:00 Mem [facility] [place] Systolic (mm Hg) 2016-08-04 20:00:00 Jose rial [place] Height 2016-08-04 20:00:00 [facility] Weight 2016-08-04 20:00:00 [facility] Height 2016-07-05 15:00:00 [facility] Weight 2016-07-05 15:00:00 [facility] [place] Temperature Oral (F) 2016-06-09 18:00:00 98.2 F [facility] [place] Diastolic (mm Hg) 2016-06-09 18:00:00 Mem [facility] [place] Systolic (mm Hg) 2016-06-09 18:00:00 Jose rial [place] Height 2016-06-09 18:00:00 [facility] [place] Weight 2016-06-09 18:00:00 [facility] [place] Procedures Procedure Date / Time Performing Clinician Source Performed Measurement of post-voiding 2020-08-20 19:23:00 [facility] residual urine and/or bladder capacity by ultrasound, non-imaging Cystourethroscopy (separate 2020-05-19 21:05:00 [facility] procedure) FLUOROSCOPIC GUIDANCE AND 2017-03-02 14:01:00 Sc morial Khurram LOCALIZATION OF NEEDLE OR CATHETER TIP; SPINE INJ. 47101 (Other)<sup>1</sup> INJECTION DIAG./THER. SUB. 2017-03-02 14:01:00 [facility] [place] W/NEEDLE OR CATH. LUMBAR/SACRAL W/IMAGE 54139 (Other)<sup>2</sup> Cholecystectomy 2009-03-21 00:00:00 [facility] Right Knee Partial 2004-03-21 00:00:00 [facility] Shoulder Scope 1999-03-21 00:00:00 [facility] Right Shoulder Scope 1999-03-21 00:00:00 [facility] [place] Excision [facility] Knee arthroplasty [facility] nn Appendectomy [facility] Arthroscopy of shoulder [facility] Removal of Skin Cancer [facility] Plan of Care Planned Activity Planned Date Details Comments Source Future Scheduled 2022-09-02 Hepatitis C screening [facility] Test 10:13:27 (procedure) [code = 279422175] Future Scheduled 2022-09-02 SHINGLES VACCINES (1 Met [facility] Test 10:13:27 of 2) [code = SHINGLES VACCINES (1 of 2)] Future Scheduled 2022-09-02 65+ [facility] 10:13:27 VACCINE (2 - PPSV23 if available, else PCV20) [code = 65+ PNEUMOCOCCAL VACCINE (2 - PPSV23 if available, else PCV20)] Future Scheduled 2022-09-02 COVID-19 VACCINE (4 - [facility] Test 10:13:27 Moderna series) [code = COVID-19 VACCINE (4 - Moderna series)] Future Scheduled 2022-09-02 INFLUENZA VACCINE Method [facility] Test 10:13:27 [code = INFLUENZA VACCINE] Encounters Start End Encounter Admission Attending Care Care Encounter Source Date/Time Date/Time Type Type Clinicians Facility Department ID 2022-08-02 Outpatient [facility] [id number] [place] 09:19:15 [id number] [facility] 2022-10-07 2022-10-07 Outpatient AMANDA PATEL [id number] Memoria 07:00:00 07:00:00 11 l [place] 2022-09-23 2022-09-23 Outpatient AMANDA PATEL [id number] Memoria 07:00:00 07:00:00 10 l [facility] 2022-09-02 2022-09-02 Refill Hemal, 1.2.840.1 [id number] Methodi 00:00:00 00:00:00 Kristian 08459.1.1 617 [facility] 3.430.2.7 Hospit a .3.596835 l .8 2022-08-27 2022-08-28 Outpt Diag MHIE [facility] [id number] Memoria 12:18:00 04:59:00 Services Outpatient 09 l [facility] [place] Martin 2022-08-27 2022-08-27 Outpatient Darline MHOIP MHOIP [id number] 07:18:00 23:59:00 Pedro 09 2022-08-23 2022-08-23 Outpatient DARLINE [facility] [id number] Memoria 12:26:00 12:26:00 [facility] 2022-08-19 2022-08-20 Outpatient AMANDA [facility] [id number] Memoria 13:40:00 04:59:[address] 2022-08-19 2022-08-19 Outpatient TRINITY, AMBREEN MHSE URO [id number] MH 08:40:00 23:59:00 [facility] 2022-08-19 2022-08-19 Outpatient Trinity, Ambreen MHSE MHSE [id number] 08:40:00 23:59:00 Juan José 07 2022-07-29 2022-07-30 Outpatient MHIE [facility] [id number] Memoria 20:45:00 04:59:59 Urology 09 [facility] 2022-07-29 2022-07-29 Outpatient Trinity, Ambreen MHMG MG [id number] 15:45:00 23:59:59 Juan José 09 2022-07-29 2022-07-29 Outpatient MHIE IE [id number] Memoria 15:45:00 15:45:00 09 messi ThackerKhurram 2022-07-15 2022-07-15 Outpatient IE IE [id number] Memoria 12:00:00 12:00:00 08 messi ThackerKhurram 2022-07-06 2022-07-07 Between [facility] [id number] Memoria 14:16:25 14:16:25 [place] 05 l [facility] 2022-07-06 2022-07-07 Outpatient [facility] [id number] 09:16:25 09:16:25 05 2022-07-05 2022-07-05 Ambulatory [facility] [id number] Memoria 19:15:00 19:15:00 Pre-Reg Urology [address] [facility] 2022-07-05 2022-07-05 Outpatient [facility] [id number] Memoria 14:15:00 14:15:00 07 [facility] 2022-07-05 2022-07-05 Outpatient Ambreen Petersen [facility] [id number] 14:15:00 14:15:00 Juan José 07 2022-06-22 2022-06-23 Outpt Diag [facility] [id number] Memoria 21:21:00 04:59:00 Services Outpatient 08 l [facility] 2022-06-22 2022-06-22 Outpatient Ambreen Petersen 2.16.840. 2.16.840. 1. [id number] 16:21:00 23:59:00 Juan José 1.445415. 937940.3.61 08 3.615.30 5.30 2022-05-17 2022-05-17 Office On, 1.2.840.1 [id number] Methodi 08:40:00 09:18:55 Visit Kristian 11259.1.1 073 [facility] 3.430.2.7 Hospit a .3.074434 l .8 2022-05-17 2022-05-17 Outpatient ONDO, [facility] [id number] [place] 00:00:00 00:00:00 KRISTIAN 07Keron [facility] 2022-05-17 2022-05-17 Travel 1.2.840.1 1.2.489.418 [id number] Methodi 00:00:00 00:00:[address] 3.430.2.7 0.2.7.3.698 Ho spita .3.594602 084.8 l .8 2022-05-11 2022-05-12 Outpatient MHIE MG [id number] Memoria 20:15:00 05:59:59 Urology 06 [facility] 2022-05-11 2022-05-12 Outpatient MHIE [facility] [id number] Memoria 20:15:00 05:59:59 Urology 06 [facility] 2022-05-11 2022-05-11 Outpatient Ambreen Petersen [facility] MG [id number] 14:15:00 23:59:59 Juan José 06 2022-05-11 2022-05-11 Outpatient MHIE IE [id number] Memoria 14:15:00 14:15:00 06 [facility] 2022-01-01 2022-01-01 Travel 1.2.840.1 1.2.205.722 [id number] Methodi 00:00:00 00:00:[address] 3.430.2.7 0.2.7.3.698 Ho spita .3.374620 084.8 l .8 2021-09-06 2021-09-06 Refill Ondo, 1.2.840.1 [id number] Methodi 00:00:00 00:00:00 Kristian 16660.1.1 383 [facility] 3.430.2.7 Hospit a .3.833487 l .8 2021-06-30 2021-06-30 Outpatient AGUSTO, [facility] [id number] [place] 00:00:00 00:00:00 NADIM 723 Method i 2021-06-30 2021-06-30 Outpatient AGUSTO, [facility] [id number] [place] 00:00:00 00:00:00 NADIM 657 Method i 2021-06-12 2021-06-12 Outpatient AGUSTO, [facility] [id number] [place] 00:00:00 00:00:00 NADIM 085 Method i 2021-06-12 2021-06-12 Outpatient AGUSTO, [facility] [id number] [place] 00:00:00 00:00:00 NADIM [address] 2021-03-04 2021-03-04 Outpatient KENDALL [facility] [id number] [place] 00:00:00 00:00:00 MEME [address] 2021-03-04 2021-03-04 Outpatient KENDALL [facility] [id number] [place] 00:00:00 00:00:00 MEME [address] 2020-12-23 2020-12-23 Outpatient MARK, [facility] [id number] [place] 00:00:00 00:00:00 CHRISS [address] 2020-12-23 2020-12-23 Outpatient MARK, [facility] [id number] [place] 00:00:00 00:00:00 CHRISS [address] 2020-10-22 2020-10-23 Outpatient nullFlavo [facility] [id number] Memoria 12:30:00 04:59:59 r Urology 05 [facility] 2020-10-22 2020-10-23 Outpatient nullFlavo [facility] [id number] Memoria 12:30:00 04:59:59 r Urology 05 [facility] 2020-10-22 2020-10-22 Outpatient MHMG [facility] [id number] 07:30:00 23:59:59 05 2020-10-22 2020-10-22 Outpatient MHIE [facility] [id number] Memoria 07:30:00 07:30:00 05 [facility] 2020-09-01 2020-09-01 Outpatient KENDALL [facility] [id number] [place] 00:00:00 00:00:00 MEME 798 Method i 2020-09-01 2020-09-01 Outpatient KENDALL [facility] [id number] [place] 00:00:00 00:00:00 MEME 485 Method i 2020-08-20 2020-08-21 Outpatient nullFlavo [facility] [id number] Memoria 19:30:00 04:59:59 r Urology 04 [facility] 2020-08-20 2020-08-21 Outpatient nullFlavo [facility] [id number] Memoria 19:30:00 04:59:59 r Urology 04 [facility] 2020-08-20 2020-08-20 Outpatient Trinity, Ambreen [facility] MG [id number] 14:30:00 23:59:59 Juan José 04 2020-08-20 2020-08-20 Outpatient MHIE [facility] [id number] Memoria 14:30:00 14:30:00 04 [facility] 2020-06-02 2020-06-02 Outpatient KENDALL [facility] [id number] [place] 00:00:00 00:00:00 MEME [facility] 2020-06-02 2020-06-02 Outpatient KENDALL [facility] [id number] [place] 00:00:00 00:00:00 MEME [facility] 2020-05-19 2020-05-20 [place] [id number] Memoria 20:00:00 05:59:59 r Urology 03 [facility] 2020-05-19 2020-05-20 [place] [id number] Memoria 20:00:00 05:59:59 r Urology 01 [facility] 2020-05-19 2020-05-20 [place] [id number] Memoria 20:00:00 05:59:59 r Urology 01 [facility] 2020-05-19 2020-05-20 [place] [id number] Memoria 20:00:00 05:59:59 r Urology 03 [facility] 2020-05-19 2020-05-19 Outpatient Felice Petersenit MG MG [id number] 14:00:00 23:59:59 Juan José 2020-05-19 2020-05-19 Outpatient MHMG [facility] [id number] 14:00:00 23:59:59 03 2020-05-19 2020-05-19 Outpatient MHIE [facility] [id number] Memoria 14:00:00 14:00:00 01 [facility] 2020-05-19 2020-05-19 Outpatient MHIE [facility] [id number] Memoria 14:00:00 14:00:00 03 [facility] 2020-05-07 2020-05-07 Outpatient MHIE [facility] [id number] Memoria 10:30:00 10:30:00 02 [place] 2020-05-07 2020-05-07 Outpatient MHIE [facility] [id number] Memoria 10:30:00 10:30:00 02 l [place] 2020-04-30 2020-05-01 [place] [id number] Memoria 16:45:00 05:59:59 r Urology [address] [facility] 2020-04-30 2020-05-01 Outpatient nullFlavo [facility] [id number] Memoria 16:45:00 05:59:59 r Urology [address] [facility] 2020-04-30 2020-04-30 Outpatient Ambreen Petersen MG MG [id number] 10:45:00 23:59:59 Juan José 00 2020-04-30 2020-04-30 Outpatient MHIE [facility] [id number] Memoria 10:45:00 10:45:00 00 [facility] 2020-04-18 2020-04-18 Outpatient KENDALL [facility] [id number] [place] 00:00:00 00:00:00 MEME [address] 2020-04-18 2020-04-18 Outpatient KENDALL [facility] [id number] [place] 00:00:00 00:00:00 MEME [address] 2020-04-18 2020-04-18 Outpatient ON [facility] [id number] [place] 00:00:00 00:00:00 KRISTIAN [address] 2020-03-13 2020-03-13 Outpatient HERNANARETHA [facility] [id number] [place] 00:00:00 00:00:00 DOUG [address] 2020-03-13 2020-03-13 Outpatient EVER [facility] [id number] [place] 00:00:00 00:00:00 DOUG 342 Method i 2020-02-28 2020-03-05 In[address]XANA [facility] [id number] [place] 00:00:00 00:00:00 MORRIS [address] 2020-02-26 2020-02-26 Outpatient KENDALL [facility] [id number] [place] 00:00:00 00:00:00 MEME [address] 2020-02-26 2020-02-26 Outpatient KENDALL, [facility] [id number] [place] 00:00:00 00:00:00 MEME [address] 2020-02-21 2020-02-21 Outpatient EVER, [facility] [id number] [place] 00:00:00 00:00:00 DOUG 235 Method i 2020-02-11 2020-02-11 Outpatient BRAUNREITER [facility] [id number] [place] 00:00:00 00:00:00 , MATHIEU 967 Method i 2020-01-31 2020-01-31 Outpatient BRAUNREITER [facility] [id number] [place] 00:00:00 00:00:00 , MATHIEU 530 Method i 2020-01-21 2020-01-21 Outpatient BRAUNREITER [facility] [id number] [place] 00:00:00 00:00:00 , MATHIEU 438 Method i 2020-01-21 2020-01-21 Outpatient MILI, [facility] [id number] [place] 00:00:00 00:00:00 SIXTO 269 Metho di 2020-01-21 2020-01-21 Outpatient BRAUNREITER [facility] [id number] [place] 00:00:00 00:00:00 , MATHIEU 345 Method i 2020-01-21 2020-01-21 Outpatient BRAUNREITER [facility] [id number] [place] 00:00:00 00:00:00 , MATHIEU 342 Method i 2019-11-01 2019-11-01 Outpatient AGUSTO, [facility] [id number] [place] 00:00:00 00:00:00 NADIM 134 Method i 2019-10-18 2019-10-18 Outpatient ONDO, [facility] [id number] [place] 00:00:00 00:00:00 KRISTIAN 957 Method i 2019-07-19 2019-07-20 Emergency nullFlavo [facility] [id number] Memoria 18:31:35 00:06:[address] 2019-07-19 2019-07-20 Emergency nullFlavo [facility] [id number] Memoria 18:31:35 00:06:00 petr Khurram [address] [place] [address] 2019-07-19 2019-07-19 Outpatient Paul [facility] [id number] 13:31:35 19:06:00 Olegario Tavares 04 2019-07-13 2019-07-17 Inpatient nullFlavo [facility] [id number] Memoria 10:44:00 17:43:00 r Khurram 15 [facility] 2019-07-13 2019-07-17 Inpatient nullFlavo [facility] [id number] Memoria 10:44:00 17:43:00 [place] 15 [facility] 2019-07-13 2019-07-17 Outpatient Selwyn [facility] [id number] 05:44:00 12:43:00 Aleena Rowley 15 2019-06-18 2019-06-18 Outpatient HEMAL [facility] [id number] [address] [place] [address] 00:00:00 00:00:00 KRISTIAN Leelee [facility] 2017-06-17 2017-06-18 Outpt Diag nullFlavo [facility] [id number] Memoria 19:10:00 04:59:00 Services r Outpatient 07 l [place] 2017-06-17 2017-06-18 Outpt Diag nullFlavo [facility] [id number] Memoria 19:10:00 04:59:00 Services r Outpatient 07 l Imaging [facility] [place] 2017-06-17 2017-06-17 Outpatient Adrián, [id number] 14:10:00 23:59:00 Jayce Hall 2017-05-10 2017-05-11 Outpatient nullFlavo [facility] [id number] Memoria 13:11:00 05:59:00 r [place] 03 l [place] 2017-05-10 2017-05-11 Outpatient nullFlavo [facility] [id number] Memoria 13:11:00 05:59:00 r [place]urram 03 l [place] 2017-05-10 2017-05-10 Outpatient HORACIO BullockSL [facility] [id number] 07:11:00 23:59:00 Mohammamildred 03 2017-03-05 2017-03-05 Outpatient Nino [place] [id number] eClinic 21:25:00 21:25:00 Faljulitoor Odalisor DPM [employer] Works DPM 2017-03-02 2017-03-02 Outpatient nullFlavo [facility] [id number] Memoria 11:59:13 15:08:00 r [facility] 2017-03-02 2017-03-02 [facility] [id number] Memoria 11:59:13 15:08:00 r [facility] 2017-03-02 2017-03-02 Outpatient Etminan, [id number] 05:59:13 09:08:00 Mohammad 8 2017-03-02 2017-03-02 Outpatient nullFlavo [facility] [id number] Memoria 05:59:13 09:08:00 r messi Paulson 2016-12-20 2016-12-21 Outpt Diag nullFlavo [facility] [id number] Memoria 18:45:00 04:59:00 Services r Outpatient 06 l Imaging - Francis n [place] 2016-12-20 2016-12-21 Outpt Diag nullFlavo [facility] [id number] Memoria 18:45:00 04:59:00 Services r Outpatient 06 l Imaging - Francis n [place] 2016-12-20 2016-12-20 Outpatient Etminan, 2.16.840. 2.16.840.1. [id number] 13:45:00 23:59:00 Mohammad 1.031592. [id number] 06 3.615.67 5.67 2016-10-28 2016-10-29 Outpt Diag nullFlavo [facility] [id number] Memoria 15:18:00 04:59:00 Services r Outpatient 05 l Imaging - Francis n [place] 2016-10-28 2016-10-29 Outpt Diag nullFlavo [place] [id number] Memoria 15:18:00 04:59:00 Services r Outpatient 05 l Imaging - Francis n [place] 2016-10-28 2016-10-28 Outpatient Etminan, 2.16.840. 2.16.840.1. [id number] 10:18:00 23:59:00 Mohammad 1.809169. [id number] 05 3.615.67 5.67 2016-08-04 2016-08-04 Outpatient Nino [place] [id number] eClinic 15:00:00 15:00:00 Falknor Annamariaknor DPM al Works DPM 2016-07-05 2016-07-05 Outpatient Nino [place] [id number] eClinic 10:00:00 10:00:00 Falknor Falknor DPM al Works DPM 2016-06-09 2016-06-09 Outpatient Nino [place] [id number] eClinic 13:00:00 13:00:00 Falknor Annamariaknor DPM al Works DPM 2014-04-29 2014-04-30 Outpt Diag nullFlavo [facility] [id number] Memoria 14:58:00 05:59:00 Services r Outpatient 04 l [place] 2014-04-29 2014-04-30 Outpt Diag nullFlavo [facility] [id number] Memoria 14:58:00 05:59:00 Services r Outpatient 04 l [facility] [place] 2014-04-29 2014-04-29 Outpatient Mcdowell, 2.16.840. 2.16.840.1. [id number] 08:58:00 23:59:00 Mukund 1.165932. [id number] 04 3.615.0.1 5.0.282 93 3745-11-13 2014-02-01 Outpt Diag nullFlavo [facility] [id number] Memoria 14:42:00 05:59:00 Services r Outpatient 00 l Imaging [facility] 2014-01-31 2014-02-01 Outpt Diag nullFlavo [facility] [id number] Memoria 14:42:00 05:59:00 Services r Outpatient 00 l Imaging [facility] [place] 2014-01-31 2014-01-31 Outpatient Mcdowell, 2.16.840. 2.16.840.1. [id number] 08:42:00 23:59:00 Mukund H 1.544877. 824966.3.61 00 3.615.0.1 5.0.101 01 Results Test Description Test Time Test Comments Results Result Comments Source RADRPT 2022-08-27 13:30:32 Test Item Value Reference Range Interpretation Comme nts RADRPT (test code = RADRPT) PROCEDURE INFORMATION: Exam: XR Left Shoulder Exam date and time: 08/27/2022 7:55 AM Age: 76 years old Clinical indication: Malignant neoplasm of prostate; Additional info: /c61 TECHNIQUE: Imaging protocol: Radiologic exam of the left shoulder. Views: 1 view. COMPARISON: BONE SCAN NM 08/19/2022 11:50 AM FINDINGS: Bones/joints: No acute fracture or dislocation. Moderate acromioclavicular joint arthrosis. Lateral downsloping of the acromion. Lfkl-mb-lnfk apposition along the inferior aspect of the glenohumeral joint. Sclerosis about the superomedial, medial, inferior medial humeral head. Moderate spurs along the inferior medial humeral head. Sclerosis about the glenoid. There is some demineralization of the bones. Soft tissues: Normal. IMPRESSION: 1. No acute fracture or dislocation. 2. Significant degenerative changes of the glenohumeral joint. Moderate degenerative changes of the acromioclavicular joint. These findings are thought to correspond to the increased uptake in this region seen on the bone scan 08/19/2022. If there remains concern, however, MRI can be performed. Todd Carrillo MD On 08/27/2022 08:30:03; [id number] [id number] 18:12:12 Test Item Value Reference Range Interpretation Comments RADRPT (test code = PROCEDURE INFORMATION: RADRPT) Exam: NM Bone and/or Joint, Whole Body Exam date and time: 08/19/2022 11:50 AM Age: 76 years old Clinical indication: Malignant neoplasm of prostate; Additional info: /prostate cancer stagingCOMPARISON: ABDOMEN/PELVIS W IV CONTRAST CT 08/19/2022 9:33 AMTECHNIQUE:Total body bone scan is performed using 25 mCi of technetium 99m-MDP, which was administered intravenously in the left antecubital IV. Whole body and regional delayed images are obtained.FINDINGS:Decrease d activity is seen to the left kidney compared to the right kidney. Normal tracer activity identified about the bladder.Nonspecific focal increased uptake is seen in the left distal femoral diaphyseal region. Recommend correlation with left femur films. Mild nonspecific increased uptake about mid and lower thoracic vertebral bodies and about mid and lower lumbar vertebral bodies appear to correspond to degenerative changes on CT abdomen and pelvis dated 08/19/2022. Mild focal increased uptake in the right sternoclavicular region consistent with degenerative changes. Focal increased uptake in the right anterior 7th and 8th ribs has the appearance of prior fractures. Nonspecific increased uptake is seen in the left humeral head. Recommend correlation with left shoulder films. Increased uptake about both knees, both ankles and both feet most consistent with degenerative changes. No other abnormal areas of tracer activity in the bones or soft tissues.IMPRESSION:1. Nonspecific focal increased uptake is seen in the left distal femoral diaphyseal region. Recommend correlation with left femur films. 2. Degenerative changes as above. 3. Focal increased uptake in the right anterior 7th and 8th ribs has the appearance of prior fractures. 4. Nonspecific increased uptake is seen in the left humeral head. Recommend correlation with left shoulder films. 5. No abnormal areas of tracer uptake about the pelvis.Milton Aviles MD On 08/19/2022 13:11:30; [id number] [facility] [id number] 15:49:33 Test Item Value Reference Range Interpretation Comments RADRPT (test code Radiation Dose CTDIVOL = 0 = RADRPT) (mGy): DLP = 1511.8 (mGy-cm)PROCEDURE INFORMATION: Exam: CT Abdomen And Pelvis With Contrast Exam date and time: 08/19/2022 9:10 AM Age: 76 years old Clinical indication: Malignant neoplasm of prostate; Additional info: /prostate cancer staging TECHNIQUE: Imaging protocol: Computed tomography of the abdomen and pelvis with contrast. Radiation optimization: All CT scans at this facility use at least one of these dose optimization techniques: automated exposure control; mA and/or kV adjustment per patient size (includes targeted exams where dose is matched to clinical indication); or iterative reconstruction. Contrast material: OMNI; Contrast volume: 80 ml; Contrast route: INTRAVENOUS (IV); REPORTING DATA: Count of CT and Cardiac NM exams in prior 12 months: This patient has received 0 known CTs and 0 known cardiac nuclear medicine studies in the 12 months prior to the current study. COMPARISON: PROSTATE WITH AND WITHOUT CONTRAST MRI 06/22/2022 5:48 PM RADIATION DOSE METRICS: Total DLP (mGy-cm): 1511.8 FINDINGS: Lungs: Clear lung bases. Liver: Mild fatty liver. Gallbladder and bile ducts: Cholecystectomy, biliary system normal. Pancreas: Pancreas normal. Spleen: Spleen normal. Adrenal glands: Adrenals normal. Kidneys and ureters: No renal calculus, hydronephrosis or perinephric stranding. Bilateral renal cortical cysts including multiple complicated left renal cysts, largest 5.4 cm, could be further evaluated with renal ultrasound if indicated. Stomach and bowel: No intestinal lesion or mesenteric inflammatory change. Appendix: Appendectomy. Intraperitoneal space: No ascites. Vasculature: Minor atherosclerosis. Lymph nodes: No adenopathy. Urinary bladder: Small volume thick-walled urinary bladder. Reproductive: Enlarged heterogeneous prostate with dystrophic calcifications. Bones/joints: Severe spondylosis with multilevel hypertrophic facet arthropathy, grade 1 anterolisthesis L4 with respect to L5 and old compression deformity superior endplate L4. Scattered round sclerotic lesions involving the iliac bones, largest within the left ischium measuring 1.7 cm series 3, image 101. Metastatic disease possible. Soft tissues: Tiny fat containing umbilical hernia. IMPRESSION: 1. Pelvic sclerotic lesions could represent metastatic disease. 2. No adenopathy. 3. Fatty liver, cholecystectomy. 4. Multiple renal cortical cysts, with multiple complex cysts on the left. 5. Appendectomy. 6. Severe spondylosis. COMMENTS: Consistent with the [employer]'s Incidental Findings Committee white paper (J Am Julieta Radiol 2018): Any incidental renal lesion less than 1 cm or classified as too small to characterize, or any incidental cystic renal lesion characterized as simple-appearing, is likely benign. No follow-up imaging is recommended for these lesions per consensus recommendations based on imaging criteria. Kristian Leonard MD On 08/19/2022 10:48:26; [id number] [id number] 14:09:00 Test Item Value Reference Range Interpretation Comments POC Creatinine (test code = POC 1.3 0.5-1.4 Creatinine) [id number] 14:09:00 Test Item Value Reference Range Interpretation Comments eGFR (test code = eGFR) 57 [id number] 13:50:35 Test Item Value Reference Range Interpretation Comments RADRPT (test code STUDY: MR pelvis with and = RADRPT) without contrast (DynaCAD/UroNAV).COMPARISON : None available.HISTORY: - Elevated PSA. No prior biopsy.TECHNIQUE: Multiplanar multisequential MR images of the pelvis were obtained before and after intravenous contrast administration. Images are analyzed and interpreted using DynaCAD for Prostate advanced visualization and analysis software. 20 cc [employer].FINDINGS:Bones: 1.7 x 1.2 cm hypointense T2 lesion in the left acetabulum (601; 13).Gastrointestinal tract: Unremarkable. Intact anterior rectal wall.Adenopathy: None.Fluid: None.Inflammatory changes: None.Urinary bladder: Normal.Urethra: Normal.Seminal vesicles: Atrophic right seminal vesicle with proteinaceous content.Prostate: Measures 5.3 x 4.5 x 5.0 cm. Volume is 52 mL.Benign prostatic hyperplasia is seen with enlargement of the transitional zone.Central zone is atrophic.Mild atrophic peripheral zone is seen with diffuse heterogeneous T2 signal that can be seen with chronic prostatitis versus prostatosis.1.7 x 1.1 x 1.5 cm area in the right lateral peripheral zone at mid gland is seen with hyperintense signal on DWI images and subtle hypointense T2/ADC signal. PI-RADS 5.1.4 x 0.9 x 0.7 cm well-circumscribed hypointense T2 area is seen in the anterior right transitional zone at the base with hyperintense signal on DWI images. PI-RADS 3.Anterior fibromuscular stroma: Unremarkable.Capsule: Intact.Neurovascular bundle: Unremarkable.IMPRESSION:1. Suspicious areas in the right transitional zone and peripheral zone as described above.2. Indeterminate left acetabular lesion. Consider correlation with bone scan.PIRADS: 5 PIRADSTM v2 assessment uses a 5 point scale based on the likelihood (probability) that a combination of mpMRI findings on T2W, DWI, and DCE correlates with the presence of a clinically significant cancer for each lesion in the prostate gland. PIRADSTM v2 ASSESSMENT CATEGORIES: PIRADS 1 Very low (clinically significant cancer is highly unlikely to be present). PIRADS 2 Low (clinically significant cancer is unlikely to be present). PIRADS 3 Intermediate (the presence of clinically significant cancer is equivocal). PIRADS 4 High (clinically significant cancer is likely to be present). PIRADS 5 Very high (clinically significant cancer is highly likely to be present). NOTE: Assignment of a PIRADSTM v2 Assessment Category should be based on mpMRI findings only and should not incorporate other factors such as serum prostate specific antigen (PSA), digital rectal exam, clinical history, or choice of treatment. Although biopsy should be considered for PIRADS 4 or 5, but not for PIRADS 1 or 2, PIRADSTM v2 does not include recommendations for management, as these must take into account other factors besides the MRI findings, including laboratory/clinical history and local preferences, expertise and standards of care. Thus, for findings with PIRADS Assessment Category 2 or 3, biopsy may or may not be appropriate, depending on factors other than mpMRI alone. [facility] [id number] 20:58:00 Test Item Value Reference Range Interpretation Comments POC UA Color (test Yellow *NA*(05/11/22 code = POC UA Color) 2:58 PM) [facility] [id number] 20:58:00 Test Item Value Reference Range Interpretation Comments POC UA Turbidity (test Clear *NA*(05/11/22 code = POC UA Turbidity) 2:58 PM) [facility] [id number] 20:58:00 Test Item Value Reference Range Interpretation Comments POC UA SG (test code = POC UA SG) 1.025 1 [facility] [id number] 20:58:00 Test Item Value Reference Range Interpretation Comments POC UA pH (test code = POC UA pH) 5.0 1 5.0-8.0 [facility] [id number] 20:58:00 Test Item Value Reference Range Interpretation Comments POC UA Prot (test code = POC Negative mg/dL UA Prot) [facility] [id number] 20:58:00 Test Item Value Reference Range Interpretation Comments POC UA Glu (test code = POC UA Negative mg/dL Glu) [facility] [id number] 20:58:00 Test Item Value Reference Range Interpretation Comments POC UA Ket (test code = POC UA Negative mg/dL Ket) [facility] [id number] 20:58:00 Test Item Value Reference Range Interpretation Comments POC UA Bili (test Negative *NA*(05/11/22 code = POC UA Bili) 2:58 PM) [facility] [id number] 20:58:00 Test Item Value Reference Range Interpretation Comments POC UA Bld (test code Large *ABN*(05/11/22 = POC UA Bld) 2:58 PM) [facility] [id number] 20:58:00 Test Item Value Reference Range Interpretation Comments POC UA Uro (test code = POC UA Uro) 0.2 0.1-1.0 [facility] [id number] 20:58:00 Test Item Value Reference Range Interpretation Comments POC UA Nit (test code Negative *NA*(05/11/22 = POC UA Nit) 2:58 PM) [facility] [id number] 20:58:00 Test Item Value Reference Range Interpretation Comments POC UA LeukEst (test Trace *ABN*(05/11/22 code = POC UA LeukEst) 2:58 PM) [facility] [id number] 20:58:00 Test Item Value Reference Range Interpretation Comments POC UA Color (test Yellow *NA*(05/11/22 code = POC UA Color) 2:58 PM) [facility] [id number] 20:58:00 Test Item Value Reference Range Interpretation Comments POC UA Turbidity (test Clear *NA*(05/11/22 code = POC UA Turbidity) 2:58 PM) [facility] [id number] 20:58:00 Test Item Value Reference Range Interpretation Comments POC UA SG (test code = POC UA SG) 1.025 1 [facility] [id number] 20:58:00 Test Item Value Reference Range Interpretation Comments POC UA pH (test code = POC UA pH) 5.0 1 5.0-8.0 [facility] [id number] 20:58:00 Test Item Value Reference Range Interpretation Comments POC UA Prot (test code = POC Negative mg/dL UA Prot) [facility] [id number] 20:58:00 Test Item Value Reference Range Interpretation Comments POC UA Glu (test code = POC UA Negative mg/dL Glu) [facility] [id number] 20:58:00 Test Item Value Reference Range Interpretation Comments POC UA Ket (test code = POC UA Negative mg/dL Ket) [facility] [id number] 20:58:00 Test Item Value Reference Range Interpretation Comments POC UA Bili (test Negative *NA*(05/11/22 code = POC UA Bili) 2:58 PM) [facility] [id number] 20:58:00 Test Item Value Reference Range Interpretation Comments POC UA Bld (test code Large *ABN*(05/11/22 = POC UA Bld) 2:58 PM) [facility] [id number] 20:58:00 Test Item Value Reference Range Interpretation Comments POC UA Uro (test code = POC UA Uro) 0.2 0.1-1.0 [facility] [id number] 20:58:00 Test Item Value Reference Range Interpretation Comments POC UA Nit (test code Negative *NA*(05/11/22 = POC UA Nit) 2:58 PM) [facility] [id number] 20:58:00 Test Item Value Reference Range Interpretation Comments POC UA LeukEst (test Trace *ABN*(05/11/22 code = POC UA LeukEst) 2:58 PM) [facility] [id number] 22:04:00 Test Item Value Reference Range Interpretation Comments Result 2 (Urine Culture) See Result Comment (test code = Result 2 (Urine Culture)) [facility] [id number] 22:04:00 Test Item Value Reference Range Interpretation Comments Result 2 (Urine Culture) See Result Comment (test code = Result 2 (Urine Culture)) [facility]annStubHubIAL [id number] 20:13:00 Test Item Value Reference Range Interpretation Comments PSA (test code = PSA) 3.1 [facility] [id number] 20:13:00 Test Item Value Reference Range Interpretation Comments PSA Free (test code = PSA Free) 0.7 [facility] [id number] 20:13:00 Test Item Value Reference Range Interpretation Comments Free PSA/PSA (test code = Free PSA/PSA) 23 [facility]annSt[facility]IAL [id number] 20:13:00 Test Item Value Reference Range Interpretation Comments PSA (test code = PSA) 3.1 [facility] [id number] 20:13:00 Test Item Value Reference Range Interpretation Comments PSA Free (test code = PSA Free) 0.7 [facility] [id number] 20:13:00 Test Item Value Reference Range Interpretation Comments Free PSA/PSA (test code = Free PSA/PSA) 23 [facility] AND [id number] 19:26:00 Test Item Value Reference Range Interpretation Comments POC UA Color (test Yellow *NA*(08/20/20 2:26 code = POC UA Color) PM) [facility] AND [id number] 19:26:00 Test Item Value Reference Range Interpretation Comments POC UA Turbidity (test Clear *NA*(08/20/20 code = POC UA Turbidity) 2:26 PM) [facility] AND [id number] 19:26:00 Test Item Value Reference Range Interpretation Comments POC UA SG (test code = >=1.030 *ABN*(08/20/20 POC UA SG) 2:26 PM) [facility] AND [id number] 19:26:00 Test Item Value Reference Range Interpretation Comments POC UA pH (test code = POC UA pH) 5.5 1 5.0-8.0 [facility] AND [id number] 19:26:00 Test Item Value Reference Range Interpretation Comments POC UA Prot (test code = POC Negative mg/dL UA Prot) [facility] AND [id number] 19:26:00 Test Item Value Reference Range Interpretation Comments POC UA Glu (test code = POC UA Negative mg/dL Glu) [facility] AND [id number] 19:26:00 Test Item Value Reference Range Interpretation Comments POC UA Ket (test code = POC UA Negative mg/dL Ket) [facility] AND [id number] 19:26:00 Test Item Value Reference Range Interpretation Comments POC UA Bili (test Negative *NA*(08/20/20 code = POC UA Bili) 2:26 PM) [facility] AND [id number] 19:26:00 Test Item Value Reference Range Interpretation Comments POC UA Bld (test code Negative *NA*(08/20/20 = POC UA Bld) 2:26 PM) [facility] [id number] 19:26:00 Test Item Value Reference Range Interpretation Comments POC UA Uro (test code = POC UA Uro) 0.2 0.1-1.0 [facility] AND [id number] 19:26:00 Test Item Value Reference Range Interpretation Comments POC UA Nit (test code Negative *NA*(08/20/20 = POC UA Nit) 2:26 PM) [facility] AND [id number] 19:26:00 Test Item Value Reference Range Interpretation Comments POC UA LeukEst (test Trace *ABN*(08/20/20 code = POC UA LeukEst) 2:26 PM) [facility] AND [id number] 19:26:00 Test Item Value Reference Range Interpretation Comments POC UA Color (test Yellow *NA*(08/20/20 2:26 code = POC UA Color) PM) [facility] AND [id number] 19:26:00 Test Item Value Reference Range Interpretation Comments POC UA Turbidity (test Clear *NA*(08/20/20 code = POC UA Turbidity) 2:26 PM) [facility] AND [id number] 19:26:00 Test Item Value Reference Range Interpretation Comments POC UA SG (test code = >=1.030 *ABN*(08/20/20 POC UA SG) 2:26 PM) [facility] AND [id number] 19:26:00 Test Item Value Reference Range Interpretation Comments POC UA pH (test code = POC UA pH) 5.5 1 5.0-8.0 [facility] AND [id number] 19:26:00 Test Item Value Reference Range Interpretation Comments POC UA Prot (test code = POC Negative mg/dL UA Prot) [facility] AND [id number] 19:26:00 Test Item Value Reference Range Interpretation Comments POC UA Glu (test code = POC UA Negative mg/dL Glu) [facility] AND [id number] 19:26:00 Test Item Value Reference Range Interpretation Comments POC UA Ket (test code = POC UA Negative mg/dL Ket) [facility] AND [id number] 19:26:00 Test Item Value Reference Range Interpretation Comments POC UA Bili (test Negative *NA*(08/20/20 code = POC UA Bili) 2:26 PM) [facility] [id number] 19:26:00 Test Item Value Reference Range Interpretation Comments POC UA Bld (test code Negative *NA*(08/20/20 = POC UA Bld) 2:26 PM) [facility] AND [id number] 19:26:00 Test Item Value Reference Range Interpretation Comments POC UA Uro (test code = POC UA Uro) 0.2 0.1-1.0 [facility] AND [id number] 19:26:00 Test Item Value Reference Range Interpretation Comments POC UA Nit (test code Negative *NA*(08/20/20 = POC UA Nit) 2:26 PM) [facility] AND [id number] 19:26:00 Test Item Value Reference Range Interpretation Comments POC UA LeukEst (test Trace *ABN*(08/20/20 code = POC UA LeukEst) 2:26 PM) [facility] AND [id number] 20:24:00 Test Item Value Reference Range Interpretation Comments POC UA Color (test Yellow *NA*(05/19/20 2:24 code = POC UA Color) PM) [facility] AND [id number] 20:24:00 Test Item Value Reference Range Interpretation Comments POC UA Turbidity (test Clear *NA*(05/19/20 code = POC UA Turbidity) 2:24 PM) [facility] AND [id number] 20:24:00 Test Item Value Reference Range Interpretation Comments POC UA SG (test code = >=1.030 *ABN*(05/19/20 POC UA SG) 2:24 PM) [facility] AND [id number] 20:24:00 Test Item Value Reference Range Interpretation Comments POC UA pH (test code = POC UA pH) 5.5 1 5.0-8.0 [facility] AND [id number] 20:24:00 Test Item Value Reference Range Interpretation Comments POC UA Prot (test code = POC Negative mg/dL UA Prot) [facility] AND [id number] 20:24:00 Test Item Value Reference Range Interpretation Comments POC UA Glu (test code = POC UA Negative mg/dL Glu) [facility] AND [id number] 20:24:00 Test Item Value Reference Range Interpretation Comments POC UA Ket (test code = POC UA Negative mg/dL Ket) [facility] AND [id number] 20:24:00 Test Item Value Reference Range Interpretation Comments POC UA Bili (test Negative *NA*(05/19/20 code = POC UA Bili) 2:24 PM) [facility] AND [id number] 20:24:00 Test Item Value Reference Range Interpretation Comments POC UA Bld (test code Negative *NA*(05/19/20 = POC UA Bld) 2:24 PM) [facility] AND [id number] 20:24:00 Test Item Value Reference Range Interpretation Comments POC UA Uro (test code = POC UA Uro) 0.2 0.1-1.0 [facility] AND [id number] 20:24:00 Test Item Value Reference Range Interpretation Comments POC UA Nit (test code Negative *NA*(05/19/20 = POC UA Nit) 2:24 PM) [facility] AND [id number] 20:24:00 Test Item Value Reference Range Interpretation Comments POC UA LeukEst (test Trace *ABN*(05/19/20 code = POC UA LeukEst) 2:24 PM) [facility] AND [id number] 20:24:00 Test Item Value Reference Range Interpretation Comments POC UA Color (test Yellow *NA*(05/19/20 2:24 code = POC UA Color) PM) [facility] AND [id number] 20:24:00 Test Item Value Reference Range Interpretation Comments POC UA Turbidity (test Clear *NA*(05/19/20 code = POC UA Turbidity) 2:24 PM) [facility] AND [id number] 20:24:00 Test Item Value Reference Range Interpretation Comments POC UA SG (test code = >=1.030 *ABN*(05/19/20 POC UA SG) 2:24 PM) [facility] AND [id number] 20:24:00 Test Item Value Reference Range Interpretation Comments POC UA pH (test code = POC UA pH) 5.5 1 5.0-8.0 [facility] AND [id number] 20:24:00 Test Item Value Reference Range Interpretation Comments POC UA Prot (test code = POC Negative mg/dL UA Prot) [facility] AND [id number] 20:24:00 Test Item Value Reference Range Interpretation Comments POC UA Glu (test code = POC UA Negative mg/dL Glu) [facility] AND [id number] 20:24:00 Test Item Value Reference Range Interpretation Comments POC UA Ket (test code = POC UA Negative mg/dL Ket) [facility] AND [id number] 20:24:00 Test Item Value Reference Range Interpretation Comments POC UA Bili (test Negative *NA*(05/19/20 code = POC UA Bili) 2:24 PM) [facility] AND [id number] 20:24:00 Test Item Value Reference Range Interpretation Comments POC UA Bld (test code Negative *NA*(05/19/20 = POC UA Bld) 2:24 PM) [facility] AND [id number] 20:24:00 Test Item Value Reference Range Interpretation Comments POC UA Uro (test code = POC UA Uro) 0.2 0.1-1.0 [facility] AND [id number] 20:24:00 Test Item Value Reference Range Interpretation Comments POC UA Nit (test code Negative *NA*(05/19/20 = POC UA Nit) 2:24 PM) [facility] AND [id number] 20:24:00 Test Item Value Reference Range Interpretation Comments POC UA LeukEst (test Trace *ABN*(05/19/20 code = POC UA LeukEst) 2:24 PM) [facility] RNA [Presence] in Respiratory specimen by KASSIE with probe [id number] 02:51:55 Test Item Value Reference Range Interpretation Comments SARS-CoV-2 (COVID-19) RNA Not detected Not-Detected [Presence] in Respiratory specimen by KASSIE with probe detection (test code = 45290-0) [facility] Test Item Value Reference Range Interpretation Comments RBC (test code = RBC) 3.78 4.70-6.10 [place] [id number] 09:34:00 Test Item Value Reference Range Interpretation Comments Hgb (test code = Hgb) 12.0 14.0-18.0 [place] [address]-04-27 09:34:00 Test Item Value Reference Range Interpretation Comments Hct (test code = Hct) 35.6 42.0-54.0 [place] [address]-04-27 09:34:00 Test Item Value Reference Range Interpretation Comments MCV (test code = MCV) 94.0 80.0-94.0 [place] [address]-04-27 09:34:00 Test Item Value Reference Range Interpretation Comments MCH (test code = MCH) 31.8 pg 27.0-31.0 [place] [address]-04-27 09:34:00 Test Item Value Reference Range Interpretation Comments MCHC (test code = MCHC) 33.8 32.0-36.0 [place] [address]-04-27 09:34:00 Test Item Value Reference Range Interpretation Comments RDW (test code = RDW) 13.9 11.5-14.5 [place] [address]-04-27 09:34:00 Test Item Value Reference Range Interpretation Comments Platelet (test code = Platelet) 160 133-450 [place] [address]-04-27 09:34:00 Test Item Value Reference Range Interpretation Comments MPV (test code = MPV) 9.0 7.4-10.4 [place] [address]-04-27 09:34:00 Test Item Value Reference Range Interpretation Comments Segs (test code = Segs) 52.9 45.0-75.0 [place] [id number] 09:34:00 Test Item Value Reference Range Interpretation Comments Lymphocytes (test code = Lymphocytes) 32.1 20.0-40.0 [place] [address]-04-27 09:34:00 Test Item Value Reference Range Interpretation Comments Monocytes (test code = Monocytes) 9.1 2.0-12.0 [place] [address]-04-27 09:34:00 Test Item Value Reference Range Interpretation Comments Eosinophils (test code = 4.8 See_Comment [A utomated message] The Eosinophils) system which ge nerated this result tra nsmitted reference range : <=4.0. The reference r jason was not used to int erpret this result as normal/abnormal . [id number] 09:34:00 Test Item Value Reference Range Interpretation Comments Basophils (test code = 1.1 See_Comment [Aut omated message] The Basophils) system which ge nerated this result tra nsmitted reference range : <=1.0. The reference r jason was not used to int erpret this result as normal/abnormal . [facility] [id number] 09:34:00 Test Item Value Reference Range Interpretation Comments Neutrophils # (test code = Neutrophils 2.7 1.5-8.1 #) [facility] [facility]sswZOULFNAOBA4406-51-66 09:34:00 Test Item Value Reference Range Interpretation Comments Lymphocytes # (test code = Lymphocytes 1.7 1.0-5.5 #) [facility]GjgintyQZNMGMMKEL5670-61-63 09:34:00 Test Item Value Reference Range Interpretation Comments Monocytes # (test code 0.5 See_Comment [Aut omated message] The = Monocytes #) system which generated this result tra nsmitted reference range : <=0.8. The reference r jason was not used to int erpret this result as normal/abnormal . [facility] HospitalVymdzbgHYJGSTUJAP4906-14-64 09:34:00 Test Item Value Reference Range Interpretation Comments Eosinophils # (test code 0.2 See_Comment [A utomated message] The = Eosinophils #) system whic h generated this result tra nsmitted reference range : <=0.5. The reference r jason was not used to int erpret this result as normal/abnormal . [facility] HospitalAxobehmTNGNZVKMUP7202-21-46 09:34:00 Test Item Value Reference Range Interpretation Comments Basophils # (test code 0.1 See_Comment [Aut omated message] The = Basophils #) system which generated this result tra nsmitted reference range : <=0.2. The reference r jason was not used to int erpret this result as normal/abnormal . [facility] [id number] 09:34:00 Test Item Value Reference Range Interpretation Comments ABO/Rh (test code = ABO/Rh) AB POS [facility] [id number] 09:34:00 Test Item Value Reference Range Interpretation Comments Antibody Scrn (test Negative (4/27/20 4:34 code = Antibody Scrn) AM) [employer]2020-04-27 09:34:00 Test Item Value Reference Range Interpretation Comments Glucose Lvl (test code = Glucose Lvl) 95 70-99 [email or web address] [id number] 09:34:00 Test Item Value Reference Range Interpretation Comments BUN (test code = BUN) 10-09 [employer]2020-04-27 09:34:00 Test Item Value Reference Range Interpretation Comments Creatinine Lvl (test code = Creatinine 1.16 0.50-1.40 Lvl) [employer]2020-04-27 09:34:00 Test Item Value Reference Range Interpretation Comments Sodium Lvl (test code = Sodium Lvl) 144 135-145 [employer] [id number] 09:34:00 Test Item Value Reference Range Interpretation Comments ABO/Rh (test code = ABO/Rh) AB POS [employer] [id number] 09:34:00 Test Item Value Reference Range Interpretation Comments Antibody Scrn (test Negative (07/16/19 4:34 code = Antibody Scrn) AM) [email or web address] [id number] 09:34:00 Test Item Value Reference Range Interpretation Comments Glucose Lvl (test code = Glucose Lvl) 70- [facility] [employer] [id number] 09:34:00 Test Item Value Reference Range Interpretation Comments BUN (test code = BUN) 10-09 [employer]2020-04-27 09:34:00 Test Item Value Reference Range Interpretation Comments Creatinine Lvl (test code = Creatinine 1.16 0.50-1.40 Lvl) [employer]2020-04-27 09:34:00 Test Item Value Reference Range Interpretation Comments Potassium Lvl (test code = Potassium 4.5 3.5-5.1 Lvl) [employer]2020-04-27 09:34:00 Test Item Value Reference Range Interpretation Comments Sodium Lvl (test code = Sodium Lvl) 144 135-145 [email or web address] [id number] 09:34:00 Test Item Value Reference Range Interpretation Comments Potassium Lvl (test code = Potassium 4.5 3.5-5.1 Lvl) [place] 593930-04-27 09:34:00 Test Item Value Reference Range Interpretation Comments Chloride Lvl (test code = Chloride Lvl) 109 95-109 [place] 593930-04-27 09:34:00 Test Item Value Reference Range Interpretation Comments CO2 (test code = CO2) 28 24-32 [place] [address]-04-27 09:34:00 Test Item Value Reference Range Interpretation Comments Calcium Lvl (test code = Calcium Lvl) 8.6 8.5-10.5 [place] 593930-04-27 09:34:00 Test Item Value Reference Range Interpretation Comments AGAP (test code = AGAP) 11.5 10.0-20.0 [place] [address]-04-27 09:34:00 Test Item Value Reference Range Interpretation Comments eGFR (test code = eGFR) 62 [place] [address]-04-27 09:34:00 Test Item Value Reference Range Interpretation Comments WBC (test code = WBC) 5.2 3.7-10.4 [place] [address]-04-27 09:34:00 Test Item Value Reference Range Interpretation Comments RBC (test code = RBC) 3.78 4.70-6.10 [place] [address]-04-27 09:34:00 Test Item Value Reference Range Interpretation Comments Hgb (test code = Hgb) 12.0 14.0-18.0 [place] [address]-04-27 09:34:00 Test Item Value Reference Range Interpretation Comments Chloride Lvl (test code = Chloride Lvl) 109 95-109 [place] [address]-04-27 09:34:00 Test Item Value Reference Range Interpretation Comments Hct (test code = Hct) 35.6 42.0-54.0 [place] [address]-04-27 09:34:00 Test Item Value Reference Range Interpretation Comments MCV (test code = MCV) 94.0 80.0-94.0 [place] [address]-04-27 09:34:00 Test Item Value Reference Range Interpretation Comments MCH (test code = MCH) 31.8 pg 27.0-31.0 [place] [address]-04-27 09:34:00 Test Item Value Reference Range Interpretation Comments MCHC (test code = MCHC) 33.8 32.0-36.0 [facility]enSibnxbkHLMGIJMLOR1214-14-65 09:34:00 Test Item Value Reference Range Interpretation Comments RDW (test code = RDW) 13.9 11.5-14.5 [facility] McallenHjbfvtoXRVAWADXLA7104-38-29 09:34:00 Test Item Value Reference Range Interpretation Comments Platelet (test code = Platelet) 160 133-450 [facility] McallenLsjvbdcJMFAEWZCXI9589-67-44 09:34:00 Test Item Value Reference Range Interpretation Comments MPV (test code = MPV) 9.0 7.4-10.4 [facility]Fq[facility]DLTNEANLHX2872-[facility]-77 09:34:00 Test Item Value Reference Range Interpretation Comments Segs (test code = Segs) 52.9 45.0-75.0 [facility] McallenWdegbxbUYDGVFJCTF5998-32-00 09:34:00 Test Item Value Reference Range Interpretation Comments Lymphocytes (test code = Lymphocytes) 32.1 20.0-40.0 [facility] McallenIfmavigHLPQKCHDEI2676-37-02 09:34:00 Test Item Value Reference Range Interpretation Comments Monocytes (test code = Monocytes) 9.1 2.0-12.0 [facility]2020-04-27 09:34:00 Test Item Value Reference Range Interpretation Comments CO2 (test code = CO2) 28 24-32 [facility] McallenIhtcrxvFXXBWNRLBI6380-70-57 09:34:00 Test Item Value Reference Range Interpretation Comments Eosinophils (test code = 4.8 See_Comment [A utomated message] The Eosinophils) system which ge nerated this result tra nsmitted reference range : <=4.0. The reference r jason was not used to int erpret this result as normal/abnormal . [facility] HospitalQovmrcjOVDWQOBMVQ0258-62-77 09:34:00 Test Item Value Reference Range Interpretation Comments Basophils (test code = 1.1 See_Comment [Aut omated message] The Basophils) system which ge nerated this result tra nsmitted reference range : <=1.0. The reference r jason was not used to int erpret this result as normal/abnormal . [facility] HospitalKcyfqxtXOBWMEAPUI7635-93-84 09:34:00 Test Item Value Reference Range Interpretation Comments Neutrophils # (test code = Neutrophils 2.7 1.5-8.1 #) [facility] HospitalIqcrfozWYWBZYURPN5143-60-73 09:34:00 Test Item Value Reference Range Interpretation Comments Lymphocytes # (test code = Lymphocytes 1.7 1.0-5.5 #) [place] 640000-04-27 09:34:00 Test Item Value Reference Range Interpretation Comments Monocytes # (test code 0.5 See_Comment [Aut omated message] The = Monocytes #) system which generated this result tra nsmitted reference range : <=0.8. The reference r jason was not used to int erpret this result as normal/abnormal . [place] 640000-04-27 09:34:00 Test Item Value Reference Range Interpretation Comments Eosinophils # (test code 0.2 See_Comment [A utomated message] The = Eosinophils #) system whic h generated this result tra nsmitted reference range : <=0.5. The reference r jason was not used to int erpret this result as normal/abnormal . [place] [address]-04-27 09:34:00 Test Item Value Reference Range Interpretation Comments Basophils # (test code 0.1 See_Comment [Aut omated message] The = Basophils #) system which generated this result tra nsmitted reference range : <=0.2. The reference r jason was not used to int erpret this result as normal/abnormal . [facility]enAverail [id number] 09:34:00 Test Item Value Reference Range Interpretation Comments Calcium Lvl (test code = Calcium Lvl) 8.6 8.5-10.5 [place] 593930-04-27 09:34:00 Test Item Value Reference Range Interpretation Comments AGAP (test code = AGAP) 11.5 10.0-20.0 [facility] [id number] 09:34:00 Test Item Value Reference Range Interpretation Comments eGFR (test code = eGFR) 62 [place] [address]-04-27 09:34:00 Test Item Value Reference Range Interpretation Comments WBC (test code = WBC) 5.2 3.7-10.4 [place] 593930-04-26 10:14:00 Test Item Value Reference Range Interpretation Comments Glucose Lvl (test code = Glucose Lvl) 92 70-99 [facility] [id number] 10:14:00 Test Item Value Reference Range Interpretation Comments BUN (test code = BUN) 23 7-22 [facility]2020-04-26 10:14:00 Test Item Value Reference Range Interpretation Comments Creatinine Lvl (test code = Creatinine 1.14 0.50-1.40 Lvl) [place] 593930-04-26 10:14:00 Test Item Value Reference Range Interpretation Comments Sodium Lvl (test code = Sodium Lvl) 144 135-145 [place] 593930-04-26 10:14:00 Test Item Value Reference Range Interpretation Comments Potassium Lvl (test code = Potassium 4.6 3.5-5.1 Lvl) [place] [address]-04-26 10:14:00 Test Item Value Reference Range Interpretation Comments Chloride Lvl (test code = Chloride Lvl) 112 95-109 [place] 593930-04-26 10:14:00 Test Item Value Reference Range Interpretation Comments CO2 (test code = CO2) 27 24-32 [place] 593930-04-26 10:14:00 Test Item Value Reference Range Interpretation Comments Calcium Lvl (test code = Calcium Lvl) 8.0 8.5-10.5 [place] [address]-04-26 10:14:00 Test Item Value Reference Range Interpretation Comments Total Protein (test code = Total 5.4 6.4-8.4 Protein) [place] [address]-04-26 10:14:00 Test Item Value Reference Range Interpretation Comments Albumin Lvl (test code = Albumin Lvl) 3.2 3.5-5.0 [place] [address]-04-26 10:14:00 Test Item Value Reference Range Interpretation Comments ALT (test code = ALT) 22 See_Comment [Auto mated message] The system which ge nerated this result transmit joanie reference range : <=65. The reference range was not used to interpr et this result as radha l/abnormal. [place] [address]-04-26 10:14:00 Test Item Value Reference Range Interpretation Comments AST (test code = AST) 57 See_Comment [Auto mated message] The system which ge nerated this result transmit joanie reference range : <=37. The reference range was not used to interpr et this result as radha l/abnormal. [facility] [id number] 10:14:00 Test Item Value Reference Range Interpretation Comments Alk Phos (test code = Alk Phos) 79 39-136 [facility]2020-04-26 10:14:00 Test Item Value Reference Range Interpretation Comments Bili Total (test code = Bili Total) 0.3 0.2-1.3 [facility]2020-04-26 10:14:00 Test Item Value Reference Range Interpretation Comments AGAP (test code = AGAP) 9.6 10.0-20.0 [facility]2020-04-26 10:14:00 Test Item Value Reference Range Interpretation Comments B/C Ratio (test code = B/C Ratio) 20 1 6-25 [place] 593930-04-26 10:14:00 Test Item Value Reference Range Interpretation Comments Globulin (test code = Globulin) 2.2 2.7-4.2 [facility]2020-04-26 10:14:00 Test Item Value Reference Range Interpretation Comments A/G Ratio (test code = A/G Ratio) 1.5 1 0.7-1.6 [place] 593930-04-26 10:14:00 Test Item Value Reference Range Interpretation Comments eGFR (test code = eGFR) 63 [facility] HospitalKgrivnzMCMSPLOTSG4056-21-61 10:14:00 Test Item Value Reference Range Interpretation Comments Segs (test code = Segs) 59.1 45.0-75.0 [facility] HospitalHkfykeqPBQQFJFYJF1153-73-23 10:14:00 Test Item Value Reference Range Interpretation Comments Lymphocytes (test code = Lymphocytes) 30.1 20.0-40.0 [facility] HospitalNylardpVXDLKOGFJN9542-03-02 10:14:00 Test Item Value Reference Range Interpretation Comments Monocytes (test code = Monocytes) 6.5 2.0-12.0 [place] [address]-04-26 10:14:00 Test Item Value Reference Range Interpretation Comments Eosinophils (test code = 3.8 See_Comment [A utomated message] The Eosinophils) system which ge nerated this result tra nsmitted reference range : <=4.0. The reference r jason was not used to int erpret this result as normal/abnormal . [facility] HospitalYjktyvpGPBCKYMGWR7681-60-68 10:14:00 Test Item Value Reference Range Interpretation Comments Basophils (test code = 0.5 See_Comment [Aut omated message] The Basophils) system which ge nerated this result tra nsmitted reference range : <=1.0. The reference r jason was not used to int erpret this result as normal/abnormal . [facility] HospitalGnmizsgAOCVJUSHEA1591-68-63 10:14:00 Test Item Value Reference Range Interpretation Comments Neutrophils # (test code = Neutrophils 2.9 1.5-8.1 #) [facility] HospitalBiaklzeKLNMTPHPCO7957-72-32 10:14:00 Test Item Value Reference Range Interpretation Comments Lymphocytes # (test code = Lymphocytes 1.5 1.0-5.5 #) [facility] HospitalEvhyirlEEYEGHBBHT0081-40-73 10:14:00 Test Item Value Reference Range Interpretation Comments Monocytes # (test code 0.3 See_Comment [Aut omated message] The = Monocytes #) system which generated this result tra nsmitted reference range : <=0.8. The reference r jason was not used to int erpret this result as normal/abnormal . [facility] HospitalHfvmcmmHWLTTVCWMJ0766-22-54 10:14:00 Test Item Value Reference Range Interpretation Comments Eosinophils # (test code 0.2 See_Comment [A utomated message] The = Eosinophils #) system whic h generated this result tra nsmitted reference range : <=0.5. The reference r jason was not used to int erpret this result as normal/abnormal . [facility] HospitalSbfhdsmHQKEARTLIY1281-56-81 10:14:00 Test Item Value Reference Range Interpretation Comments WBC (test code = WBC) 4.9 3.7-10.4 [facility] HospitalAxouctmYIRPUPSYGP4772-18-80 10:14:00 Test Item Value Reference Range Interpretation Comments RBC (test code = RBC) 3.33 4.70-6.10 [place] 640000-04-26 10:14:00 Test Item Value Reference Range Interpretation Comments Hgb (test code = Hgb) 10.7 14.0-18.0 [place] 640000-04-26 10:14:00 Test Item Value Reference Range Interpretation Comments Hct (test code = Hct) 31.2 42.0-54.0 [place] 640000-04-26 10:14:00 Test Item Value Reference Range Interpretation Comments MCV (test code = MCV) 93.6 80.0-94.0 [facility] HospitalMlgjlycTBIDPDHKQJ6872-68-39 10:14:00 Test Item Value Reference Range Interpretation Comments MCH (test code = MCH) 32.0 pg 27.0-31.0 [facility] HospitalJmspzxcRWRRPTWNZY0723-45-12 10:14:00 Test Item Value Reference Range Interpretation Comments MCHC (test code = MCHC) 34.1 32.0-36.0 [facility] HospitalHaauqivERNFRNDYPC7889-30-32 10:14:00 Test Item Value Reference Range Interpretation Comments RDW (test code = RDW) 14.1 11.5-14.5 [place] 640000-04-26 10:14:00 Test Item Value Reference Range Interpretation Comments Platelet (test code = Platelet) 130 133-450 [facility] HospitalKefkdmmNSRIGSZLGD6757-91-85 10:14:00 Test Item Value Reference Range Interpretation Comments MPV (test code = MPV) 8.9 7.4-10.4 [facility]2020-04-26 10:14:00 Test Item Value Reference Range Interpretation Comments Glucose Lvl (test code = Glucose Lvl) 92 70-99 [facility]2020-04-26 10:14:00 Test Item Value Reference Range Interpretation Comments BUN (test code = BUN) 23 7-22 [facility]2020-04-26 10:14:00 Test Item Value Reference Range Interpretation Comments Creatinine Lvl (test code = Creatinine 1.14 0.50-1.40 Lvl) [facility]2020-04-26 10:14:00 Test Item Value Reference Range Interpretation Comments Sodium Lvl (test code = Sodium Lvl) 144 135-145 [facility]2020-04-26 10:14:00 Test Item Value Reference Range Interpretation Comments Potassium Lvl (test code = Potassium 4.6 3.5-5.1 Lvl) [facility]2020-04-26 10:14:00 Test Item Value Reference Range Interpretation Comments Chloride Lvl (test code = Chloride Lvl) 112 95-109 [place] 593930-04-26 10:14:00 Test Item Value Reference Range Interpretation Comments CO2 (test code = CO2) 27 24-32 [place] 593930-04-26 10:14:00 Test Item Value Reference Range Interpretation Comments Calcium Lvl (test code = Calcium Lvl) 8.0 8.5-10.5 [facility] [id number] 10:14:00 Test Item Value Reference Range Interpretation Comments Total Protein (test code = Total 5.4 6.4-8.4 Protein) [facility] TylerNeoconixMICHAEL [place] [id number] 10:14:00 Test Item Value Reference Range Interpretation Comments Albumin Lvl (test code = Albumin Lvl) 3.2 3.5-5.0 [facility] [id number] 10:14:00 Test Item Value Reference Range Interpretation Comments ALT (test code = ALT) 22 See_Comment [Auto mated message] The system which ge nerated this result transmit joanie reference range : <=65. The reference range was not used to interpr et this result as radha l/abnormal. [facility] [id number] 10:14:00 Test Item Value Reference Range Interpretation Comments AST (test code = AST) 57 See_Comment [Auto mated message] The system which ge nerated this result transmit joanie reference range : <=37. The reference range was not used to interpr et this result as radha l/abnormal. [facility] [employer] [id number] 10:14:00 Test Item Value Reference Range Interpretation Comments Alk Phos (test code = Alk Phos) 79 39-136 [facility] [id number] 10:14:00 Test Item Value Reference Range Interpretation Comments Bili Total (test code = Bili Total) 0.3 0.2-1.3 [facility] [id number] 10:14:00 Test Item Value Reference Range Interpretation Comments AGAP (test code = AGAP) 9.6 10.0-20.0 [facility] [employer] [id number] 10:14:00 Test Item Value Reference Range Interpretation Comments B/C Ratio (test code = B/C Ratio) 20 1 6-25 [facility] [id number] 10:14:00 Test Item Value Reference Range Interpretation Comments Globulin (test code = Globulin) 2.2 2.7-4.2 [facility] [employer] [id number] 10:14:00 Test Item Value Reference Range Interpretation Comments A/G Ratio (test code = A/G Ratio) 1.5 1 0.7-1.6 [facility]2020-04-26 10:14:00 Test Item Value Reference Range Interpretation Comments eGFR (test code = eGFR) 63 [facility] HospitalIomqergIKTBXCDMEJ1564-64-14 10:14:00 Test Item Value Reference Range Interpretation Comments Segs (test code = Segs) 59.1 45.0-75.0 [place] 640000-04-26 10:14:00 Test Item Value Reference Range Interpretation Comments Lymphocytes (test code = Lymphocytes) 30.1 20.0-40.0 [place] [address]-04-26 10:14:00 Test Item Value Reference Range Interpretation Comments Monocytes (test code = Monocytes) 6.5 2.0-12.0 [place] 640000-04-26 10:14:00 Test Item Value Reference Range Interpretation Comments Eosinophils (test code = 3.8 See_Comment [A utomated message] The Eosinophils) system which ge nerated this result tra nsmitted reference range : <=4.0. The reference r jason was not used to int erpret this result as normal/abnormal . [facility] HospitalFmcnbpeDOJINJSNCR5711-91-82 10:14:00 Test Item Value Reference Range Interpretation Comments Basophils (test code = 0.5 See_Comment [Aut omated message] The Basophils) system which ge nerated this result tra nsmitted reference range : <=1.0. The reference r jason was not used to int erpret this result as normal/abnormal . [facility] HospitalAvvremvXYBZDBLYZP7394-00-14 10:14:00 Test Item Value Reference Range Interpretation Comments Neutrophils # (test code = Neutrophils 2.9 1.5-8.1 #) [facility] HospitalYjmifjdFEMGTLLXVB6154-11-53 10:14:00 Test Item Value Reference Range Interpretation Comments Lymphocytes # (test code = Lymphocytes 1.5 1.0-5.5 #) [place] [address]-04-26 10:14:00 Test Item Value Reference Range Interpretation Comments Monocytes # (test code 0.3 See_Comment [Aut omated message] The = Monocytes #) system which generated this result tra nsmitted reference range : <=0.8. The reference r jason was not used to int erpret this result as normal/abnormal . [place] 640000-04-26 10:14:00 Test Item Value Reference Range Interpretation Comments Eosinophils # (test code 0.2 See_Comment [A utomated message] The = Eosinophils #) system whic h generated this result tra nsmitted reference range : <=0.5. The reference r jason was not used to int erpret this result as normal/abnormal . [facility] HospitalGqivfijWKCYOSISNT3647-84-42 10:14:00 Test Item Value Reference Range Interpretation Comments WBC (test code = WBC) 4.9 3.7-10.4 [facility] HospitalVdhcdsqITHIVCACWP0311-56-65 10:14:00 Test Item Value Reference Range Interpretation Comments RBC (test code = RBC) 3.33 4.70-6.10 [facility] HospitalVnqixpqTVJSTNXYZV4173-68-85 10:14:00 Test Item Value Reference Range Interpretation Comments Hgb (test code = Hgb) 10.7 14.0-18.0 [facility] HospitalUedpbtnXWTNCQKACJ6660-77-34 10:14:00 Test Item Value Reference Range Interpretation Comments Hct (test code = Hct) 31.2 42.0-54.0 [facility] HospitalZhexeqrPQCKACHIDA7815-60-25 10:14:00 Test Item Value Reference Range Interpretation Comments MCV (test code = MCV) 93.6 80.0-94.0 [facility] HospitalLgdcfgzLQOPJVQBXW9774-27-91 10:14:00 Test Item Value Reference Range Interpretation Comments MCH (test code = MCH) 32.0 pg 27.0-31.0 [facility] HospitalOppjzeeQZJBAHQVMW2856-16-75 10:14:00 Test Item Value Reference Range Interpretation Comments MCHC (test code = MCHC) 34.1 32.0-36.0 [facility] HospitalEmuvvpvCJYTKHFGYJ3394-48-69 10:14:00 Test Item Value Reference Range Interpretation Comments RDW (test code = RDW) 14.1 11.5-14.5 [facility] HospitalJdocazhEJIFKOPETG9876-66-15 10:14:00 Test Item Value Reference Range Interpretation Comments Platelet (test code = Platelet) 130 133-450 [facility] HospitalMvlognxVMQYDXJQDF8821-62-16 10:14:00 Test Item Value Reference Range Interpretation Comments MPV (test code = MPV) 8.9 7.4-10.4 [facility] McallenVokjxyqGKWAPNXOLY6713-84-47 13:12:00 Test Item Value Reference Range Interpretation Comments Coronavirus (COVID-19) Not Detected (07/13/19 KASSIE (test code = 8:12 AM) Coronavirus (COVID-19) KASSIE) [facility] McallenPgenrnkHERXHHLYQQ9914-00-36 13:12:00 Test Item Value Reference Range Interpretation Comments Coronavirus (COVID-19) Not Detected (07/13/19 KASSIE (test code = 8:12 AM) Coronavirus (COVID-19) KASSIE) [facility]2020-04-24 11:52:00 Test Item Value Reference Range Interpretation Comments Creatinine Lvl (test code = Creatinine 1.21 0.50-1.40 Lvl) [facility]2020-04-24 11:52:00 Test Item Value Reference Range Interpretation Comments Sodium Lvl (test code = Sodium Lvl) 143 135-145 [facility]2020-04-24 11:52:00 Test Item Value Reference Range Interpretation Comments Potassium Lvl (test code = Potassium 3.9 3.5-5.1 Lvl) [facility] [facility]00 Test Item Value Reference Range Interpretation Comments Chloride Lvl (test code = Chloride Lvl) 111 95-109 [facility]2020-04-24 11:52:00 Test Item Value Reference Range Interpretation Comments CO2 (test code = CO2) 25 24-32 [facility]2020-04-24 11:52:00 Test Item Value Reference Range Interpretation Comments Calcium Lvl (test code = Calcium Lvl) 9.3 8.5-10.5 [facility]2020-04-24 11:52:00 Test Item Value Reference Range Interpretation Comments AGAP (test code = AGAP) 10.9 10.0-20.0 [facility]2020-04-24 11:52:00 Test Item Value Reference Range Interpretation Comments eGFR (test code = eGFR) 59 [facility]54 11:52:00 Test Item Value Reference Range Interpretation Comments WBC (test code = WBC) 6.5 3.7-10.4 [facility]yxfbwzJRVWZODZRR9556-19-48 11:52:00 Test Item Value Reference Range Interpretation Comments RBC (test code = RBC) 3.85 4.70-6.10 [facility] HospitalYhesolrDVWQBLZXFG2206-61-08 11:52:00 Test Item Value Reference Range Interpretation Comments Hgb (test code = Hgb) 12.1 14.0-18.0 [facility] HospitalZmemgenEDIDTILEUT4667-07-46 11:52:00 Test Item Value Reference Range Interpretation Comments Hct (test code = Hct) 36.0 42.0-54.0 [facility] HospitalPlsoenqNIESPRGUXC9909-70-59 11:52:00 Test Item Value Reference Range Interpretation Comments MCV (test code = MCV) 93.7 80.0-94.0 [facility] HospitalIriqdqfHIONYFLPCE3714-53-55 11:52:00 Test Item Value Reference Range Interpretation Comments MCH (test code = MCH) 31.5 pg 27.0-31.0 [facility] HospitalAcqqfluDMEGMKYCIV6735-44-97 11:52:00 Test Item Value Reference Range Interpretation Comments MCHC (test code = MCHC) 33.7 32.0-36.0 [facility] HospitalKgvcdrcLONSJVAHRH0903-99-22 11:52:00 Test Item Value Reference Range Interpretation Comments RDW (test code = RDW) 14.2 11.5-14.5 [facility] HospitalTrwhhpeEZMQUSTNUC1350-25-66 11:52:00 Test Item Value Reference Range Interpretation Comments Platelet (test code = Platelet) 147 133-450 [facility] HospitalAaweykbQNPISZHERK9704-46-64 11:52:00 Test Item Value Reference Range Interpretation Comments MPV (test code = MPV) 9.0 7.4-10.4 [facility] HospitalVbbkglwAGPVLYYBSB7817-63-49 11:52:00 Test Item Value Reference Range Interpretation Comments Segs (test code = Segs) 72.5 45.0-75.0 [facility] HospitalKvjsuwiNZVVQVRPKU9640-40-35 11:52:00 Test Item Value Reference Range Interpretation Comments Lymphocytes (test code = Lymphocytes) 15.6 20.0-40.0 [facility] HospitalDtzkmokDZLEKKXNBC1909-04-18 11:52:00 Test Item Value Reference Range Interpretation Comments Monocytes (test code = Monocytes) 10.7 2.0-12.0 [facility] HospitalJifjxouYIEZIMVWJJ8831-77-69 11:52:00 Test Item Value Reference Range Interpretation Comments Eosinophils (test code = 0.6 See_Comment [A utomated message] The Eosinophils) system which ge nerated this result tra nsmitted reference range : <=4.0. The reference r jason was not used to int erpret this result as normal/abnormal . [facility]terbaQODBQMBPVQ9245-39-64 11:52:00 Test Item Value Reference Range Interpretation Comments Basophils (test code = 0.6 See_Comment [Aut omated message] The Basophils) system which ge nerated this result tra nsmitted reference range : <=1.0. The reference r jason was not used to int erpret this result as normal/abnormal . [facility]enYjyavtyAADBEIVBPT5239-09-01 11:52:00 Test Item Value Reference Range Interpretation Comments Neutrophils # (test code = Neutrophils 4.7 1.5-8.1 #) [facility]enWqnpncmOGQHUDTQLW0177-28-27 11:52:00 Test Item Value Reference Range Interpretation Comments Lymphocytes # (test code = Lymphocytes 1.0 1.0-5.5 #) [facility]enZkyhsyyYKZBCOIFDP0174-42-14 11:52:00 Test Item Value Reference Range Interpretation Comments Monocytes # (test code 0.7 See_Comment [Aut omated message] The = Monocytes #) system which generated this result tra nsmitted reference range : <=0.8. The reference r jason was not used to int erpret this result as normal/abnormal . [facility] [employer] [id number] 11:52:00 Test Item Value Reference Range Interpretation Comments ABO/Rh (test code = ABO/Rh) AB POS [facility] [employer] [id number] 11:52:00 Test Item Value Reference Range Interpretation Comments Antibody Scrn (test Negative (07/13/19 6:52 code = Antibody Scrn) AM) [facility] [id number] 11:52:00 Test Item Value Reference Range Interpretation Comments Glucose Lvl (test code = Glucose Lvl) 107 70-99 [facility] [id number] 11:52:00 Test Item Value Reference Range Interpretation Comments BUN (test code = BUN) 30 7-22 [facility] [id number] 11:52:00 Test Item Value Reference Range Interpretation Comments Creatinine Lvl (test code = Creatinine 1.21 0.50-1.40 Lvl) [facility] [id number] 11:52:00 Test Item Value Reference Range Interpretation Comments Sodium Lvl (test code = Sodium Lvl) 143 135-145 [place] 593930-04-24 11:52:00 Test Item Value Reference Range Interpretation Comments Potassium Lvl (test code = Potassium 3.9 3.5-5.1 Lvl) [place] 593930-04-24 11:52:00 Test Item Value Reference Range Interpretation Comments Chloride Lvl (test code = Chloride Lvl) 111 95-109 [place] 593930-04-24 11:52:00 Test Item Value Reference Range Interpretation Comments CO2 (test code = CO2) 25 24-32 [place] [address]-04-24 11:52:00 Test Item Value Reference Range Interpretation Comments Calcium Lvl (test code = Calcium Lvl) 9.3 8.5-10.5 [place] 593930-04-24 11:52:00 Test Item Value Reference Range Interpretation Comments AGAP (test code = AGAP) 10.9 10.0-20.0 [place] 593930-04-24 11:52:00 Test Item Value Reference Range Interpretation Comments eGFR (test code = eGFR) 59 [place] 640000-04-24 11:52:00 Test Item Value Reference Range Interpretation Comments WBC (test code = WBC) 6.5 3.7-10.4 [place] [address]-04-24 11:52:00 Test Item Value Reference Range Interpretation Comments RBC (test code = RBC) 3.85 4.70-6.10 [place] 640000-04-24 11:52:00 Test Item Value Reference Range Interpretation Comments Hgb (test code = Hgb) 12.1 14.0-18.0 [place] [address]-04-24 11:52:00 Test Item Value Reference Range Interpretation Comments Hct (test code = Hct) 36.0 42.0-54.0 [place] [address]-04-24 11:52:00 Test Item Value Reference Range Interpretation Comments MCV (test code = MCV) 93.7 80.0-94.0 [place] [address]-04-24 11:52:00 Test Item Value Reference Range Interpretation Comments MCH (test code = MCH) 31.5 pg 27.0-31.0 [place] [address]-04-24 11:52:00 Test Item Value Reference Range Interpretation Comments MCHC (test code = MCHC) 33.7 32.0-36.0 [place] 640000-04-24 11:52:00 Test Item Value Reference Range Interpretation Comments RDW (test code = RDW) 14.2 11.5-14.5 [place] 640000-04-24 11:52:00 Test Item Value Reference Range Interpretation Comments Platelet (test code = Platelet) 147 133-450 [place] 640000-04-24 11:52:00 Test Item Value Reference Range Interpretation Comments MPV (test code = MPV) 9.0 7.4-10.4 [place] 640000-04-24 11:52:00 Test Item Value Reference Range Interpretation Comments Segs (test code = Segs) 72.5 45.0-75.0 [place] 640000-04-24 11:52:00 Test Item Value Reference Range Interpretation Comments Lymphocytes (test code = Lymphocytes) 15.6 20.0-40.0 [place] 640000-04-24 11:52:00 Test Item Value Reference Range Interpretation Comments Monocytes (test code = Monocytes) 10.7 2.0-12.0 [facility] HospitalPvqiepwKCTQXIRHBA7177-80-76 11:52:00 Test Item Value Reference Range Interpretation Comments Eosinophils (test code = 0.6 See_Comment [A utomated message] The Eosinophils) system which ge nerated this result tra nsmitted reference range : <=4.0. The reference r jason was not used to int erpret this result as normal/abnormal . [facility] HospitalDowqlbdUNKMCPJLWK8427-25-47 11:52:00 Test Item Value Reference Range Interpretation Comments Basophils (test code = 0.6 See_Comment [Aut omated message] The Basophils) system which ge nerated this result tra nsmitted reference range : <=1.0. The reference r jason was not used to int erpret this result as normal/abnormal . [facility] HospitalSpmahigQEICZGZAMJ7125-60-36 11:52:00 Test Item Value Reference Range Interpretation Comments Neutrophils # (test code = Neutrophils 4.7 1.5-8.1 #) [place] 640000-04-24 11:52:00 Test Item Value Reference Range Interpretation Comments Lymphocytes # (test code = Lymphocytes 1.0 1.0-5.5 #) [facility] TylerXchginsKJPJLNJZRD1925-53-59 11:52:00 Test Item Value Reference Range Interpretation Comments Monocytes # (test code 0.7 See_Comment [Aut omated message] The = Monocytes #) system which generated this result tra nsmitted reference range : <=0.8. The reference r jason was not used to int erpret this result as normal/abnormal . [facility] [employer] [id number] 11:52:00 Test Item Value Reference Range Interpretation Comments ABO/Rh (test code = ABO/Rh) AB POS [facility] [employer] [id number] 11:52:00 Test Item Value Reference Range Interpretation Comments Antibody Scrn (test Negative (07/13/19 6:52 code = Antibody Scrn) AM) [facility] [employer] [id number] 11:52:00 Test Item Value Reference Range Interpretation Comments Glucose Lvl (test code = Glucose Lvl) 107 70-99 [facility] [employer] [id number] 11:52:00 Test Item Value Reference Range Interpretation Comments BUN (test code = BUN) 30 7-22 [facility]enMznmrnwWSGCKEOPOL8018-34-01 13:49:00 Test Item Value Reference Range Interpretation Comments Platelet (test code = Platelet) 170 133-450 [facility] McallenPmoaoxrDAVGJGSQAT2606-73-50 13:49:00 Test Item Value Reference Range Interpretation Comments INR (test code = INR) 0.95 1 0.85-1.17 [facility] McallenShennxzEFKYGKNROP6114-24-42 13:49:00 Test Item Value Reference Range Interpretation Comments PT (test code = PT) 12.7 s 12.0-14.7 [facility] TylerIxiedbsLBKGXHPBJV5025-91-15 13:49:00 Test Item Value Reference Range Interpretation Comments PTT (test code = PTT) 24.9 s 22.9-35.8 [facility] TylerCinegdpCBBFDPKCYW1784-36-18 13:49:00 Test Item Value Reference Range Interpretation Comments Platelet (test code = Platelet) 170 133-450 [facility] McallenYnyfwuuWMEWLLIALU9603-96-75 13:49:00 Test Item Value Reference Range Interpretation Comments INR (test code = INR) 0.95 1 0.85-1.17 [facility] McallenLvwbddtYYPRVZPDTM3808-22-97 13:49:00 Test Item Value Reference Range Interpretation Comments PT (test code = PT) 12.7 s 12.0-14.7 [facility] McallenCsmvnqkVVKLCUUEGI1861-58-32 13:49:00 Test Item Value Reference Range Interpretation Comments PTT (test code = PTT) 24.9 s 22.9-35.8 [facility] Notes Date/Time Note Provider Source 2022-08-27 PROCEDURE INFORMATION: CARLOS aden 07:48:00-00:00 Exam: XR Left Shoulder Exam date and time: 08/27/2022 7:55 AM Age: 76 years old Clinical indication: Malignant neoplasm of prost ate; Additional info: /c61 TECHNIQUE: Imaging protocol: Radiologic exam of the left sh oulder. Views: 1 view. COMPARISON: BONE SCAN NM 08/19/2022 11:50 AM FINDINGS: Bones/joints: No acute fracture or dislocation. Moderate acromioclavicular joint arthrosis. Lateral downsloping of the acro mion. Zjwu-qk-uzyw apposition along the inferior aspect of the glenohumeral debbi int. Sclerosis about the superomedial, medial, inferior medial humeral he ad. Moderate spurs along the inferior medial humeral head. Sclerosis about th e glenoid. There is some demineralization of the bones. Soft tissues: Normal. IMPRESSION: 1. No acute fracture or dislocation. 2. Significant degenerative changes of the gleno humeral joint. Moderate degenerative changes of the acromioclavicular joint. These findings are thought to correspond to the increased uptake in this re gion seen on the bone scan 08/19/2022. If there remains concern, however, M RI can be performed. Todd Carrillo MD On 08/27/2022 08:30:03; [id number] 2022-08-19 Radiation Dose CTDIVOL = 0 (mGy): DLP = 1511.8 ( mGy-cm) [facility] 09:08:00-00:00 PROCEDURE INFORMATION: Exam: CT Abdomen And Pelvis With Contrast Exam date and time: 08/19/2022 9:10 AM Age: 76 years old Clinical indication: Maligna nt neoplasm of prostate; Additional info: /prostate cancer staging TECHNIQUE: Imaging protocol: Computed tomography of the abdomen and pelvis with contrast. Radiation optimization: All CT scans at this facility use at least one of these dose optimization techniques: automated exposure control; mA and/or kV adjustment per patient size (includes targeted e xams where dose is matched to clinical indication); or iterative reconstructio n. Contrast material: OMNI; Contrast volume: 80 ml; Contrast route: INTRAVENOUS (IV); REPORTING DATA: Count of CT and Cardiac NM exams in prio r 12 months: This patient has received 0 known CTs and 0 known card iac nuclear medicine studies in the 12 months prior to the current study. COMPARISON: PROSTATE WITH AND WITHOUT CONTRAST MRI 06/22/2022 5:48 PM RADIATION DOSE METRICS: Total DLP (mGy-cm): 1511.8 FINDINGS: Lungs: Clear lung bases. Liver: Mild fatty liver. Gallbladder and bile ducts: Cholecystectomy, radha iary system normal. Pancreas: Pancreas normal. Spleen: Spleen normal. Adrenal glands: Adrenals normal. Kidneys and ureters: No renal calculus, hydronep hrosis or perinephric stranding. Bilateral renal cortical cysts includ ing multiple complicated left renal cysts, largest 5.4 cm, could be further ev aluated with renal ultrasound if indicated. Stomach and bowel: No intestinal lesion or mesen teric inflammatory change. Appendix: Appendectomy. Intraperitoneal space: No ascites. Vasculature: Minor atherosclerosis. Lymph nodes: No adenopathy. Urinary bladder: Small volume thick-walled urina ry bladder. Reproductive: Enlarged heterogeneous prostate wi th dystrophic calcifications. Bones/joints: Severe spondylosis with multilevel hypertrophic facet arthropathy, grade 1 anterolisthesis L4 with respect to L5 and old compression deformity superior endplate L4. Scattered round sclerotic lesions involving the iliac bones, largest within the left ischium laney suring 1.7 cm series 3, image 101. Metastatic disease possible. Soft tissues: Tiny fat containing umbilical gia ia. IMPRESSION: 1. Pelvic sclerotic lesions could represent meta static disease. 2. No adenopathy. 3. Fatty liver, cholecystectomy. 4. Multiple renal cortical cysts, with multiple complex cysts on the left. 5. Appendectomy. 6. Severe spondylosis. COMMENTS: Consistent with the [employer]'s Incidental Findings Committee white paper (J Am Julieta Radiol 2018): Any incidental renal lesion less than 1 cm or classified as too small to characterize, or any incidental cystic renal lesion characterized as simple-jeremiah earing, is likely benign. No follow-up imaging is recommended for t hese lesions per consensus recommendations based on imaging criteria. Kristian Leonard MD On 08/19/2022 10:48:26; COLE [id number] 2022-08-19 PROCEDURE INFORMATION: Al ast 09:00:00-00:00 Exam: NM Bone and/or Joint, Whole Body Exam date and time: 08/19/2022 11:50 AM Age: 76 years old Clinical indication: Malignant neoplasm of pros alfaro; Additional info: /prostate cancer staging COMPARISON: ABDOMEN/PELVIS W IV CONTRAST CT 08/19/2022 9:33 A M TECHNIQUE: Total body bone scan is perf ormed using 25 mCi of technetium 99m-MDP, which was administered intravenously in the left antecubit al IV. Whole body and regional delayed images are obtai adali. FINDINGS: Decreased activity is seen to the left kidney co mpared to the right kidney. Normal tracer activity identified about the blad erum. Nonspecific focal increased uptake is seen in th e left distal femoral diaphyseal region. Recommend correlation with le ft femur films. Mild nonspecific increased uptake about mid a nd lower thoracic vertebral bodies and about mid and lower lumbar vertebral bodies appe ar to correspond to degenerative changes on CT abdomen and pelvis da joanie 08/19/2022. Mild focal increased uptake in the right sternoclavicular r egion consistent with degenerative changes. Focal increased up take in the right anterior 7th and 8th ribs has the appearance of prior fractures. Nons pecific increased uptake is seen in the left humeral head. Recommend correlation with left shoulder films. Increased uptake about both knees, both ankles a nd both feet most consistent with degenerative changes. No other abnormal are as of tracer activity in the bones or soft tissues. IMPRESSION: 1. Nonspecific focal increased uptake is seen in the left distal femoral diaphyseal region. Recommend correlation with le ft femur films. 2. Degenerative changes as above. 3. Focal increased uptake in the right anterior 7th and 8th ribs has the appearance of prior fractures. 4. Nonspecific increased uptake is seen in the l eft humeral head. Recommend correlation with left shoulder films. 5. No abnormal areas of tracer uptake about the pelvis. Milton Aviles MD On 08/19/2022 13:11:30; DEMETRI -[id number] 2022-06-22 STUDY: MR pelvis with and without contrast (Kelin CAD/UroNAV). [facility] 17:50:00-00:00 COMPARISON: None available. HISTORY: - Elevated PSA. No prior biopsy. TECHNIQUE: Multiplanar multi sequential MR images of the pelvis were obtained before and after intravenous contrast administration. Images are analyzed and interpreted using [employer] for Prostate advanced visualization and analysis software. 20 cc [employer]. FINDINGS: Bones: 1.7 x 1.2 cm hypointense T2 lesion in the left acetabulum (601; 13). Gastrointestinal tract: Unremarkable. Intact ant erior rectal wall. Adenopathy: None. Fluid: None. Inflammatory changes: None. Urinary bladder: Normal. Urethra: Normal. Seminal vesicles: Atrophic right seminal vesicle with proteinaceous content. Prostate: Measures 5.3 x 4.5 x 5.0 cm. Volume is 52 mL. Benign prostatic hyperplasia is seen with enlargement of the transitional zone. Central zone is atrophic. Mild atrophic peripheral zon e is seen with diffuse heterogeneous T2 signal that can be seen with chronic prostatitis versus prostatosis. 1.7 x 1.1 x 1.5 cm area in t he right lateral peripheral zone at mid gland is seen with hyperintense signal on DWI images and subtle hypointense T2/ADC signal. PI-RADS 5. 1.4 x 0.9 x 0.7 cm well-circ umscribed hypointense T2 area is seen in the anterior right transitional zone at the base with hyperintense signal on DWI images. PI-RADS 3. Anterior fibromuscular stroma: Unremarkable. Capsule: Intact. Neurovascular bundle: Unremarkable. IMPRESSION: 1. Suspicious areas in the r ight transitional zone and peripheral zone as described above. 2. Indeterminate left acetabular lesion. Conside r correlation with bone scan. PIRADS: 5 PIRADSTM v2 assessment uses a 5 point scale based on the likelihood (probability) that a combination of mpMRI findings on T2W, DWI, and DCE correlates with the presence of a clinically significant cancer for each lesion in the prostate gland. PIRADSTM v2 ASSESSMENT CATEGORIES: PIRADS 1 Very low (clinicall y significant cancer is highly unlikely to be present). PIRADS 2 Low (clinically significant cancer is u nlikely to be present). PIRADS 3 Intermediate (the p resence of clinically significant cancer is equivocal). PIRADS 4 High (clinically significant cancer is likely to be present). PIRADS 5 Very high (clinical ly significant cancer is highly likely to be present). NOTE: Assignment of a PIRADS TM v2 Assessment Category should be based on mpMRI findings only and should not incorporate other factors such as serum prostate specific antigen (PSA), digital rectal exam, clinical history, or choice of treatment. Although biopsy should be considered for PIRADS 4 or 5, but not for PIRADS 1 or 2, PIRADSTM v2 does not include recommendations for management, as these must ta ke into account other factor s besides the MRI findings, including laboratory/clinical history and local preferences, expertise and standards of care. Thus, for findings with PIRADS Assessment Category 2 or 3, biopsy may or may not be appropriate, depending on factors other than mpMRI alone. 2019-07-13 EXAM: XR LEFT TIBIA 2 VIEWS [facility] 07:05:00-00:00 DATE: 07/13/2019 6:44 CDT Center INDICATION: - skin lac COMPARISON: None. TECHNIQUE: AP and lateral radiographs of the tib ia FINDINGS: No acute fracture or malalignment is identified. Mild degenerative changes of the knee joint are visualized with small marginal osteophytes and mild lateral joint space narrowing. Soft tissue laceration is noted along th e lateral mid leg. No retained radiopaque foreign bodies. IMPRESSION: 1. Soft tissue laceration al page the lateral mid leg without underlying acute osseous abnormality or retained radiopaque foreign body. 2. Mild degenerative changes of the left knee. 2017-06-17 HISTORY: gait abnormality an d mobility (R26.89) - gait abnormality and mobility (R26.89) [facility] [place] 16:01:18-00:00 TECHNIQUE: Multiplanar, mult isequence MR of the brain was performed without contrast. COMPARISON: Study dated 01/31/2014. FINDINGS: The structures of the posterior fossa and supratentorial space are developmentally normal. Normal louis-white matter differentiation is preserved throughout. There are scattered foci of abnorma l increased T2 signal hyperi ntensity seen within the deep cerebral white matter consistent with underlying chronic microvascular ischemic disease. Mild parenchymal volume loss is noted. There is slightl y disproportionate dilatatio n of the ventricles in comparison to the sulci. There is no acute intracranial hemorrhage, intraparenchymal mass, or ischemia. The central arterial and gómez or dural sinus flow voids are patent. The orbital contents are within normal limits. The pneumatized portions of the skull are clear. IMPRESSION: 1. Mild underlying age-relat ed involutional changes as above. No acute intracranial pathology. 2. Slightly disproportionate dilatation of the ventricles in comparison to the sulci. This can be seen in the setting of normal pressure hydrocephalus. Recommend clinical correlation. [id number] 2017-05-[address] OF CERVICAL SPINE, 05/10/2017 [facility] 09:31:20-00:00 HISTORY: Back pain. TECHNIQUE: 2.5 mm post myelo graphic axial images were performed through the cervical spine with sagittal and coronal reconstructions. DLP: 550 mGy-cm. AEC, mA/kV adjustment by pat ient size, and/or iterative reconstruction technique were used, per departmental dose-optimization program. FINDINGS: Mild narrowing of the C4-C5, C5-C6 and C6-C7 disc spaces noted. No evidence of fracture or bone destruction. The cervical spinal cord is normal in size and position. Mildly ectatic left vertebral artery. C2-C3: No evidence of disc herniation, central c anal or foraminal stenosis. C3-C4: No evidence of disc herniation, central c anal or foraminal stenosis. C4-C5: Disc degeneration wit h loss of disc height. Small broad-based disc/osteophyte complex effaces the thecal sac and mildly narrows the central canal which measures 10 mm in AP diameter. Facet and un covertebral joint arthrosis produce mild right C5 foraminal stenosis and moderate left C5 foraminal stenosis. C5-C6: Disc degeneration wit h loss of disc height. Broad-based disc/osteophyte complex mildly effaces the thecal sac. The AP diameter of the spinal canal equals 10.6 mm compatible with mild central james l stenosis. Facet and uncove rtebral joint arthrosis produce moderate right C6 and mild left C6 foraminal stenosis. C6-C7: Disc degeneration wit h loss of disc height. No narrowing of the central canal or either C7 foramen noted. IMPRESSION: Multilevel cervical degenerative disc disease. 2017-05-[address] OF LUMBAR SPINE, 05/10/2017 HORACIO Rosen 09:31:20-00:00 HISTORY: Low-back pain, right worse than left. TECHNIQUE: 2.5 mm post myelo graphic axial images were performed through the lumbar spine with sagittal and coronal reconstructions. DLP: 1090 mGy-cm. AEC, mA/kV adjustment by pat ient size, and/or iterative reconstruction technique were used, per departmental dose-optimization program. FINDINGS: Moderate disc space narrowin g at L1-L2 with marginal osteophytes and vacuum disc phenomena. Mild compression deformity of superior endplate of L4 vertebral body with Schmorl's node. No evidence of acute fracture or bone destruction. T12-L1: Disc degeneration wi th broad-based left paracentral disc protrusion effaces the thecal sac, more to the left of midline, mildly compressing the left L1 nerve root. Facet arthropathy and ligament um flavum thickening, left m ore than right produce minimal narrowing of the left lateral spinal canal. L1-L2: Disc degeneration wit h broad-based disc/osteophyte complex measuring 6 mm in AP diameter effaces the thecal sac and almost completely effaces CSF. Facet arthropathy and ligamentum flavum thickeni ng contribute to moderately severe narrowing of the central canal. L2-L3: Small broad-based dis c bulge mildly effaces the thecal sac. Facet arthropathy, left more than right, with probable left facet joint cyst compresses the left side of the thecal sac and narrows the foraminal entrance zone of the left L3 nerve root. Mild narrowing of the central canal at L2-L3 noted. L3-L4: Small broad-based dis c bulge mildly effaces the thecal sac. Small left foraminal disc protrusion contacts, but does not compress or displace the extraforaminal left L3 nerve root. Facet arthropat hy produces minimal narrowing of the central can al L4-L5: Broad-based central d isc protrusion mildly effaces the thecal sac. Facet arthropathy, right worse than left, with marked thickening of right ligamentum flavum contributes to moderately severe cheyrl tral canal stenosis, right w orse than left. The broad-based disc bulge, facet arthropathy and ligamentum flavum thickening on the right extends into the right L5 nerve root foraminal entrance zone and i nto the right L5 lateral rec ess compressing the foraminal right L5 nerve root with incomplete filling of the right L5 nerve root sheath. Similar but less severe changes on the left affect the foraminal left L4 nerve root. L5-S1: Small left paracentra l disc protrusion at L5-S1 mildly effaces the left side of the thecal sac and mildly compress the left S1 nerve root. Mild facet arthropathy without evidence of central canal or foraminal stenosis. IMPRESSION: Multilevel lumbar degenerative disc disease, pre dominant at L4-L5 and L1-L2. 2017-05-[address] OF THE THORACIC SPINE, 05/10/ 018 [facility] 09:31:20-00:00 HISTORY: Back pain. TECHNIQUE: 2.5 mm axial post myelographic images of the thoracic spine were obtained with sagittal and coronal reconstructions. DLP 1562 AEC, mA/kV adjustment by pat ient size, and/or iterative reconstruction technique were used, per departmental dose-optimization program. FINDINGS: Levoscoliosis of the thoracic spine with the ape x at T9-T10. Multilevel thoracic degenera tive disc disease noted without evidence of acute fracture or bone destruction. The thoracic spinal cord and conus medullaris are not normal in size and position. T12-L1: Left paracentral dis c protrusion effaces the thecal sac mildly compressing the left L1 nerve root. Mild facet arthropathy without central canal stenosis. T11-T12: Small right paracen tral disc/osteophyte complex mildly effaces the thecal sac to the right of midline. No evidence of central canal or foraminal stenosis. T10-T11: No evidence of disc herniation or spina l stenosis. T9-T10: Small paracentral di sc/osteophyte complex effaces the left side of the the thecal sac with no definite mass effect on adjacent left T10 nerve root. No evidence of central canal stenosis. T8-T9: No evidence of disc herniation or spinal stenosis. T7-T8: Left paracentral disc /osteophyte complex mildly effaces the thecal sac. No definite mass effect on left T8 nerve root. No evidence of central canal stenosis. T6-T7: No evidence of disc herniation or spinal stenosis. T5-T6: No evidence of disc herniation or spinal stenosis. T4-T5: No evidence of disc herniation or spinal stenosis. T3-T4: No evidence of disc herniation or spinal stenosis. T2-T3: No evidence of disc herniation or spinal stenosis. T1-T2: No evidence of disc herniation or spinal stenosis. IMPRESSION: Mild multilevel thoracic degenerative disc disea se. 2017-05-10 COMPLETE MYELOGRAM, 05/10/2017 Rafael Avitia [place] 09:16:00-00:00 HISTORY: Low back pain, right greater than left. Fluoroscopic time: 4.5 minutes. Films 26 Cleat Feeder films demonstrate mode rate narrowing of the L1-L2 disc space with endplate sclerosis and marginal osteophytes. Minimal narrowing of the L3-L4 disc space with Schmorl's node involving the superior endplate of L4 vert ebral body. Levoscoliosis of the thoracic spine with the apex at T9-T10. Multilevel lower thoracic degenerative disc disease with marginal osteophytes. Moderate narrowing of the C5-C6 disc space with ma rginal osteophytes seen. Minimal retrolisthesis of C5 on C6 seen. No evidence of acute fracture or bone destruction. After obtaining informed con sent, the patient was placed prone on the fluoroscopic table. The patient was monitored throughout the exam and received Demerol 25 mg IV x3. The L2 level was selected. The s kin was cleansed and anesthe tized with 5 mL of 1% lidocaine. 22-gauge spinal needle was advanced into the spinal canal. Clear, colorless CSF was observed. 12 mL of Omnipaque 300 were injected. The needl e was removed. The patient t olerated the procedure well with no immediate complications. Films and fluoroscopy of the lumbar subarachnoid space demonstrate extrinsic defect on the right at L4-L5 compressing the thecal sac and right L5 nerve root. Incomplete filling of the right L5 nerve odin t sheath seen. Minimal compr ession on the left side the thecal sac at L4-L5 without amputation of the left L5 nerve root sheath The other lumbar nerve roots fill out normally. Crosstable lateral view of the lumbar spine demonstrat es mild extrinsic compression on the anterior lumbar subarachnoid space from L1-L2 through L4-L5. Intrathecal contrast did not move into the thoracic or cervical subarachnoid space despite changes in this position and table angulation. Following the exam, the ranjeet ent was taken to the CT suite for post myelogram CT of the lumbar, thoracic, and cervical spine. 2016-12-20 MRI of Thoracic Spine [facility] 14:00:00-00:00 History: back pain Joint Technique: The study was per formed on a high-field magnet without intravenous contrast. Findings: There is a moderate levoscoliosis of lumbar spin e centered at T8-9. The thoracic discs are desiccated throughout. At T11-12, there appears to be a 3-4 mm left paracentral soft disc extrusion that effaces the emanating T12 nerve root and mildly effaces the left lateral aspect of the thoracic cord without compression . Moderate bilateral facet d egeneration. Mild central stenosis without foraminal stenosis. There is moderate right-sided foraminal narrowin g at T6-7 through T10-11. There is moderate multilevel facet arthrosis thr oughout the thoracic spine. Bone marrow signal intensity within the thoracic vertebral body is normal. Thoracic cord is normal in signal intensity and caliber. Impression: Moderate levoscoliosis of manav mbar spine centered at T8-9. The graft moderate multilevel degenerative disc disease with facet arthrosis more prominent in the mid and lower thoracic spine. Moderate multilevel right fo raminal stenosis at T6-7 through T8-10-11 due to spondylosis and facet arthrosis. 3-4 mm left paracentral soft disc extrusion at T11-12 mildly effacing the emanating left T12 nerve root. Mild central stenosis without cord compression. Dictation Code: 100 2016-10-28 MRI of the Lumbar Spine Without IV Contrast [facility] 11:31:27-00:00 History: Right radiculopathy chronic back pain Joint Comparison Study: None Technique: The study was performed on a high fie ld magnet Without contrast. Findings: There is a dextro scoliosis of lumbar spine cent ered at L1-2. L1-2: Disc desiccation with moderate loss of disc height Schmorl's nodes. Moderate diffuse posterior spondylosis with moderate bilateral facet degeneration. Mild central and bilateral foraminal stenosis left greater than right. L2-3: Disc desiccation with mild loss of disc height. Moderate bilateral facet degeneration left greater than right. Mild diffuse posterior spondylosis more prominent toward the left without focal protr usion. Mild central and bilateral foraminal sten osis left greater than right. L3-4: Disc desiccation with mild loss of disc height. Schmorl's node at the superior endplate of L4. Remote superior endplate compression deformity cannot be totally excluded. No retropulsion. Moderate bilateral facet deg eneration. Mild diffuse posterior spondylosis without focal protrusion. Mild central and bilateral foraminal stenosis. L4-5: Disc desiccation with mild loss of disc height. Mild posterior spondylosis with severe bilateral facet degeneration right greater than left. Prominent ligamentum flavum hypertrophy. Severe central and bilateral lateral reces s stenosis right greater than left. Severe right and moderate left foraminal stenosis. L5-S1: Disc desiccation with mild loss of disc height. Mild posterior spondylosis more prominent toward the left posterior laterally and left laterally. Moderate bilateral facet degeneration. Mild bilat eral foraminal stenosis without central stenosis . The conus terminates normally at T12-L1. Impression: Moderate multilevel degenera tive disc disease with facet arthrosis as detailed above. Dextroscoliosis of the lumbar spine centered at L1-2. Congenitally small central canal with superimposed multilevel moderate to severe facet arthrosis. The worst level is at L4-5 w here there is severe bilateral facet degeneration right greater than left. Mild posterior spondylosis without focal protrusion. Severe central and bilateral lateral recess st enosis right greater than le ft. Severe right and moderate left foraminal stenosis without central stenosis. Posterior spondylosis at L2- 3, L3-4 with moderate facet degeneration. Spondylosis is more prominent toward the left at both levels. Mild central and bilateral foraminal stenosis at both levels. Moderate disc space narrowin g at L1-2 with diffuse posterior spondylosis and mild facet degeneration. Mild central and bilateral foraminal stenosis. Mild posterior spondylosis a t L5-S1 with moderate bilateral facet degeneration. Mild bilateral foraminal narrowing without central stenosis. Mild superior endplate defor mity at L4 centrally that may represent degenerative Schmorl's node versus remote superior endplate compression deformity. No bone marrow edema or retropulsion. Dictation Code: 100
[2022-09-02] MEDS ORDERED: DIPHENHYDRAMINE 25 MG TAB/CAP PO PRN (12:00)
[2022-09-02] MEDS ORDERED: ONDANSETRON 4 MG/2 ML VIAL IV PRN (12:00)
[2022-09-02] MEDS ORDERED: ACETAMINOPHEN 325 MG TABLET PO PRN (12:00)
[2022-09-02] MEDS ORDERED: POLYETHYL GLY 3350 17 GM/DOSE PO PRN (12:00)
[2022-09-02] MEDS ORDERED: ONDANSETRON 4 MG (ODT) TAB PO PRN (12:00)
[2022-09-02] MEDS ORDERED: LOPERAMIDE HCL 2 MG CAPSULE PO PRN (12:00)
--- NOTE | 2022-09-02 12:35 | RAD REPORT ---
EXAM DESCRIPTION: CT - Head Brain Wo Cont - 09/02/2022 12:25 pm CLINICAL HISTORY: Severe Orthostasis Headache, drowsiness, fall, head injury. COMPARISON: No comparisons TECHNIQUE: All CT scans are performed using dose optimization technique as appropriate and may inclu de automated exposure control or mA/KV adjustment according to patient size. FINDINGS: No intracranial hemorrhage, hydrocephalus or extra-axial fluid collection.Mild generalized brain atrophy is present with mild periventricular and deep white matter chronic microvascular ische michelle changes.No areas of brain edema or evidence of midline shift. The paranasal sinuses and mastoids are clear. The calvarium is intact. IMPRESSION: No acute intracranial abnormality.
[2022-09-02] MEDS: NACHLORIDE 0.45% 1,000 ML IV SCH (13:23)
[2022-09-02] MEDS: MIDODRINE HCL 5 MG TABLET PO SCH ×2 (13:23→21:00)
[2022-09-02] MEDS: FLUDROCORTISONE 0.1 MG TAB PO SCH (13:23)
[2022-09-02 13:44] VITALS: BMI 30.4
[2022-09-02] MEDS ORDERED: PNEUMOCOCCAL VACCINE 0.5 ML IMVAC ONE (14:00)
[2022-09-02 14:46] LABS: Absolute Lymphocytes (CBC) 0.8 K/uL (0.7-4.9); Hematocrit 42.8 % (39.6-49.0); Lymphocytes % 9.8 % (15.3-44.8); MCV 92.9 fL (80-100); MPV 8.5 fL (7.6-11.3)
[2022-09-02 14:53] LABS: Protime INR 1.03
[2022-09-02 15:28] LABS: Albumin 3.9 g/dL (3.4-5.0); Bilirubin Direct 0.2 mg/dL (0-0.2); Bilirubin Indirect, Calculated 0.6 mg/dL (0.2-0.8); Bilirubin Total 0.8 mg/dL (0.2-1.0); Magnesium 2.6 mg/dL (1.6-2.4); Potassium 3.8 mEq/L (3.5-5.1); Protein, Total 6.7 g/dL (6.4-8.2); Thyroid Stimulating Hormone 1.07 uIU/mL (0.358-3.740)
--- NOTE | 2022-09-02 15:45 | RAD REPORT ---
EXAM DESCRIPTION: RAD - Chest Pa And Lat (2 Views) - 09/02/2022 3:39 pm CLINICAL HISTORY: Routine Chest pain. COMPARISON: CHEST SINGLE VIEW dated 09/10/2010; CHEST PA AND LAT 2 VIEW dated 08/15/2008 TECHNIQUE: PA and lateral views of the chest were obtained. FINDINGS: The lungs are hyperexpanded but clear. The heart is upper limit of normal in size. No frac ture or aggressive bony process. IMPRESSION: Mildly hyperexpanded lungs. The USPSTF recommends annual screening for lung cancer with low-dose CT (LDCT) in adults aged 50 to 8 0 years who have a 20 pack-year smoking history and currently smoke or have quit within the past 15 y ears.
[2022-09-02] MEDS ORDERED: ROSUVASTATIN 10 MG TAB PO SCH (21:00)
[2022-09-02] MEDS: PRAMIPEXOLE 0.25 MG TAB PO SCH (21:00)
[2022-09-02] MEDS: PREGABALIN 50 MG CAP PO SCH (21:00)
[2022-09-02] MEDS: RYTARY PO SCH (21:00)
[2022-09-03] MEDS: NACHLORIDE 0.45% 1,000 ML IV SCH ×2 (01:20→05:22)
[2022-09-03 03:20] LABS: Absolute Lymphocytes (CBC) 1.3 K/uL (0.7-4.9); Hematocrit 39.7 % (39.6-49.0); Lymphocytes % 17.4 % (15.3-44.8); MPV 8.5 fL (7.6-11.3); RBC Red Blood Cell Count 4.31 M/uL (4.33-5.43)
[2022-09-03 03:32] LABS: Magnesium 2.5 mg/dL (1.6-2.4); Potassium 3.7 mEq/L (3.5-5.1)
[2022-09-03] MEDS ORDERED: SODIUM CHLORIDE 0.9% 10ML INJ IV ONE (08:00)
[2022-09-03] MEDS ORDERED: COSYNTROPIN 0.25 MG VIAL IV ONE (08:00)
[2022-09-03] MEDS: RYTARY PO SCH (09:00)
[2022-09-03] MEDS ORDERED: EZETIMIBE 10 MG TAB PO SCH (09:00)
[2022-09-03] MEDS: MIDODRINE HCL 5 MG TABLET PO SCH ×2 (09:00→12:14)
[2022-09-03] MEDS ORDERED: ENOXAPARIN 40 MG/0.4 ML SQ SCH (09:00)
[2022-09-03] MEDS ORDERED: APIXABAN 5 MG TABLET PO SCH ×2 (09:00)
[2022-09-03] MEDS: PRAMIPEXOLE 0.25 MG TAB PO SCH (09:00)
[2022-09-03] MEDS ORDERED: DULOXETINE 30 MG CAP PO SCH (09:00)
[2022-09-03] MEDS: PREGABALIN 50 MG CAP PO SCH (09:00)
[2022-09-03] MEDS: FLUDROCORTISONE 0.1 MG TAB PO SCH (11:03)
[2022-09-03 11:46] VITALS: BP 107/67; TEMP 97.5
--- NOTE | 2022-09-03 16:42 | P.DS ---
Admission Date: 09/02/22 Discharge Date: 09/03/22 Disposition: ROUTINE DISCHARGE Discharge Condition: FAIR Brief History of Present Illness: Kidney 76 years of age admitted from Dr. Rodríguez's office with hypotension weakness Hospital Course: She was admitted to the hospital remained stable was started on midodrine and cortisone patient is ACTH stimulation test was normal no significant orthostatic hypotension pressure lying 119/68 heart rate 61 sitting 121/60 heart rate 80 standing 112/51 heart rate 86 she has mild renal insufficiency discharged in satisfactory condition to follow-up with Dr. Rodríguez is to resume all his home med ications Vital Signs/Physical Exam: Temp Pulse Resp BP Pulse Ox 97.5 F 68 17 107/67 93 09/03/22 11:46 09/03/22 11:46 09/03/22 11:46 09/03/22 11:46 09/03/22 11:46 Laboratory Data at Discharge: WBC 7.30 thou/uL (4.3-10.9) 09/03/22 02:52 Hgb 13.5 g/dL (13.6-17.9) L 09/03/22 02:52 Hct 39.7 % (39.6-49.0) 09/03/22 02:52 Plt Count 149 thou/uL (152-406) L 09/03/22 02:52 PT 11.3 SECONDS (9.5-12.5) 09/02/22 14:15 INR 1.03 09/02/22 14:15 APTT 28.3 SECONDS (24.3-36.9) 09/02/22 14:15 Sodium 137 mEq/L (136-145) 09/03/22 02:52 Potassium 3.7 mEq/L (3.5-5.1) 09/03/22 02:52 BUN 28 mg/dL (7-18) H 09/03/22 02:52 Creatinine 1.24 mg/dL (0.70-1.30) 09/03/22 02:52 Glucose 105 mg/dL (74-106) 09/03/22 02:52 Phosphorus 3.0 mg/dL (2.5-4.9) 09/02/22 14:15 Magnesium 2.5 mg/dL (1.6-2.4) H 09/03/22 02:52 Total Bilirubin 0.8 mg/dL (0.2-1.0) 09/02/22 14:15 AST 15 U/L (15-37) 09/02/22 14:15 ALT 13 U/L (16-61) L 09/02/22 14:15 Alkaline Phosphatase 63 U/L (45-117) 09/02/22 14:15 Home Medications: Apixaban [Eliquis] 1 tab PO DAILY 09/02/22 Aspirin 81 mg PO DAILY 09/02/22 Carbidopa/Levodopa [Rytary ER 61.25 mg-245 mg Cap] 1 cap PO TID 09/02/22 Duloxetine HCl [Cymbalta] 1 cap PO DAILY 09/02/22 Ezetimibe 1 tab PO DAILY 09/02/22 Pramipexole [Mirapex*] 1 tab PO BID 09/02/22 Rosuvastatin Calcium 1 cap PO BEDTIME 09/02/22 Tamsulosin HCl [Flomax] 1 cap PO DAILY 09/02/22 Fludrocortisone [Florinef *] 0.1 mg PO DAILY 30 Days #30 tab 09/03/22 Midodrine HCl [Proamatine*] 5 mg PO TID 30 Days #90 tab 09/03/22 New Medications: Fludrocortisone [Florinef *] 0.1 mg PO DAILY 30 Days #30 tab Midodrine HCl [Proamatine*] 5 mg PO TID 30 Days #90 tab
== END 2022-09-03 15:31 | disposition home or self-care (01) ==
LOC: 2ND 10:52
PROVIDERS: ADMIT Internal Medicine; ATTEND Internal Medicine Sleep Medicine
DX: I95.1 Orthostatic hypotension (principal); R53.1 Weakness; G20 Parkinson's disease; N28.9 Disorder of kidney and ureter, unspecified; I48.11 Longstanding persistent atrial fibrillation; Z79.01 Long term (current) use of anticoagulants
CPT/HCPCS: 87040 ×2; 85025 ×2; 80048 ×2; 36415 ×2; 83735 ×2; 84100; 85610; 80076; 85730; 84443; 82607; 82533 ×4; 82306; 82024; 70450; 71046; 97110 ×3; 97161; 97530; A4216; J0834; G0378; G0379

== ENCOUNTER 2023-08-18 11:42 | Observation (INO) | payer OTHER ==
[2023-08-18] MEDS ORDERED: METOPROLOL TARTRATE 5 MG/5 ML INJ IV ONE (11:56)
[2023-08-18 12:04] LABS: Absolute Eosinophils 0.2 K/uL (0-0.5); Absolute Lymphocytes (CBC) 0.8 K/uL (0.7-4.9); Absolute Monocytes 0.6 K/uL (0.1-1.3); Absolute Neutrophil 5.4 K/uL (1.8-8.0); Basophils % 0.6 % (0-1.3); Eosinophils % 3.4 % (0-4.4); Hematocrit 41.6 % (39.6-49.0); Hemoglobin 13.7 g/dL (13.6-17.9); Lymphocytes % 11.9 % (15.3-44.8); MCH 30.6 pg (27.0-35.0); MCV 92.8 fL (80-100); MPV 7.9 fL (7.6-11.3); Monocytes % 7.9 % (3.3-12.3); Neutrophils % 76.2 % (41.7-73.7); Platelets 216 thou/uL (152-406); RBC Red Blood Cell Count 4.48 M/uL (4.33-5.43); Red Cell Distribution Width 14.6 % (12.1-15.2)
--- NOTE | 2023-08-18 12:20 | RAD REPORT ---
EXAM DESCRIPTION: RADChest Single View08/18/2023 12:15 pm CLINICAL HISTORY: syncope COMPARISON: Chest Pa And Lat (2 Views) dated 09/02/2022; CHEST SINGLE VIEW dated 09/10/2010; CHEST PA AND LAT 2 VIEW dated 08/15/2008 TECHNIQUE: Portable AP view of the chest. FINDINGS: Decreased inspiratory effort limits evaluation. The lungs are clear. Implantable rhythm mo nitoring device in place. No pneumothorax or effusion. The cardiomediastinal contours are unremarkab le. IMPRESSION: No acute cardiopulmonary process.
[2023-08-18 12:29] LABS: AST/SGOT 15 U/L (15-37); Albumin 3.8 g/dL (3.4-5.0); Albumin/Globulin Ratio 1.2 (1.1-1.8); Alkaline Phosphatase 84 U/L (45-117); Anion Gap 5.7 mEq/L (5.0-15.0); BUN Blood Urea Nitrogen 23 mg/dL (7-18); Bicarbonate 28 mEq/L (21-32); Bilirubin Direct 0.2 mg/dL (0-0.2); Bilirubin Indirect, Calculated 0.3 mg/dL (0.2-0.8); Bilirubin Total 0.5 mg/dL (0.2-1.0); Globulin 3.2 g/dL (2.3-3.5); Glomerular Filtration Rate 50 ml/min (=/>90); Glucose Level 128 mg/dL (74-106); Magnesium 2.6 mg/dL (1.6-2.4); Potassium 3.7 mEq/L (3.5-5.1); Sodium Level 140 mEq/L (136-145); Troponin High Sensitivity 10.2 pg/mL (<58.9)
[2023-08-18 12:35] LABS: ALT/SGPT < 14 U/L (16-61)
--- NOTE | 2023-08-18 14:11 | EDPHYS ---
Physician Documentation [facility] Name: Emanuel Porter Age: 77 yrs Sex: Male : 1945 Arrival Date: 08/18/2023 Time: 11:42 Bed 3 Private MD: ED Physician Tho Horton HPI: 08/17 11:53 This 77 yrs old Male presents to ER via Unassigned with complaints of syncope. rt 11:53 Patient presents to the ED with syncopal event physical therapy. Patient states that he rt does not do anything strenuous, sitting down when it occurred. States he did not recall the event. Patient reportedly was in A-fib with RVR by EMS. Was given no medications. States that he feels well currently, denies chest pain, shortness of breath. Denies other acute complaints, symptoms are moderate in severity, no other aggravating or alleviating factors.. Historical: - Allergies: 12:03 No Known Allergies; ko1 - PMHx: 12:03 Arthritis; Depression; Atrial Fib; Hypertension; skin cancer; RESTLESS LEG; ko1 - PSHx: 12:03 Appendectomy; Cholecystectomy; back; ko1 - Immunization history:: Adult Immunizations up to date. - Infectious Disease History:: Denies. - Social history:: Smoking status: Patient denies any tobacco usage or history of. ROS: 11:53 Constitutional: Negative for fever, chills, and weight loss, Cardiovascular: Negative rt for chest pain, palpitations, and edema, Respiratory: Negative for shortness of breath, cough, wheezing, and pleuritic chest pain, Abdomen/GI: Negative for abdominal pain, nausea, vomiting, diarrhea, and constipation, MS/Extremity: Negative for injury and deformity, Skin: Negative for injury, rash, and discoloration, 11:53 Neuro: Positive for syncope, Negative for headache, Exam: 11:53 Constitutional: This is a well developed, well nourished patient who is awake, alert, rt and in no acute distress. Head/Face: Normocephalic, atraumatic. Chest/axilla: Normal chest wall appearance and motion. Nontender with no deformity. No lesions are appreciated. Cardiovascular: Regular rate and rhythm with a normal S1 and S2. No gallops, murmurs, or rubs. Normal PMI, no JVD. No pulse deficits. Respiratory: Lungs have equal breath sounds bilaterally, clear to auscultation and percussion. No rales, rhonchi or wheezes noted. No increased work of breathing, no retractions or nasal flaring. Abdomen/GI: Soft, non-tender, with normal bowel sounds. No distension or tympany. No guarding or rebound. No evidence of tenderness throughout. Skin: Warm, dry with normal turgor. Normal color with no rashes, no lesions, and no evidence of cellulitis. MS/ Extremity: Pulses equal, no cyanosis. Neurovascular intact. Full, normal range of motion. Neuro: Awake and alert, GCS 15, oriented to person, place, time, and situation. Cranial nerves II-XII grossly intact. Motor strength 5/5 in all extremities. Sensory grossly intact. Cerebellar exam normal. Normal gait. 11:53 ECG was reviewed by the Attending Physician. Vital Signs: 12:00 BP 146 / 95; Pulse 124; Resp 16; Temp 97; Pulse Ox 98% on R/A; ko1 12:10 BP 122 / 86; Pulse 91; Resp 16; Pulse Ox 97% ; ko1 12:15 BP 137 / 87; Pulse 86; Resp 16; Pulse Ox 98% ; ko1 12:30 BP 148 / 91; Pulse 91; Resp 18; Pulse Ox 97% ; ko1 12:45 BP 137 / 95; Pulse 91; Resp 16; Pulse Ox 99% ; ko1 13:00 BP 125 / 86; Pulse 88; Resp 14; Pulse Ox 99% ; ko1 13:36 BP 132 / 89; Pulse 76; Resp 15; Pulse Ox 94% ; ko1 14:40 BP 147 / 97; Pulse 88; Resp 16; Pulse Ox 99% ; ko1 MDM: 11:45 Patient medically screened. rt 14:11 Differential diagnosis: A-fib, dysrhythmia, dehydration. Data reviewed: vital signs, rt nurses notes, lab test result(s), EKG, radiologic studies. Consideration of Admission/Observation Patient was admitted/placed on observation. Management of patient was discussed with the following: Primary Care Provider: Agrees to admit. I considered the following discharge prescriptions or medication management in the emergency department Medications were administered in the Emergency Department. See MAR. Independent interpretation of the following test(s) in the Emergency Department X-Ray: My interpretation is No pneumonia seen on interpretation of x-ray images. Care significantly affected by the following chronic conditions: Atrial fibrillation. Counseling: I had a detailed discussion with the patient and/or guardian regarding the historical points, exam findings, and any diagnostic results supporting the discharge/admit diagnosis, lab results, radiology results, the need for outpatient follow up. Response to treatment: the patient's symptoms have markedly improved after treatment. 08/17 11:47 Order name: Basic Metabolic Panel; Complete Time: 12:38 rt 08/17 11:47 Order name: CBC with Diff; Complete Time: 12:22 rt 08/17 11:47 Order name: LFT's; Complete Time: 12:38 rt 08/17 11:47 Order name: Magnesium; Complete Time: 12:38 rt 08/17 11:47 Order name: Troponin HS; Complete Time: 12:38 rt 08/17 11:47 Order name: TSH; Complete Time: 12:38 rt 08/17 11:47 Order name: XRAY Chest (1 view); Complete Time: 12:22 rt 08/17 11:47 Order name: EKG; Complete Time: 11:48 rt 08/17 11:47 Order name: Cardiac monitoring; Complete Time: 11:51 rt 08/17 11:47 Order name: EKG - Nurse/Tech; Complete Time: 11:51 rt 08/17 11:47 Order name: IV Saline Lock; Complete Time: 11:52 rt 08/17 11:47 Order name: Labs collected and sent; Complete Time: 12:19 rt 08/17 11:47 Order name: O2 Per Protocol; Complete Time: 11: rt 08/17 11:47 Order name: O2 Sat Monitoring; Complete Time: 11:51 rt EC:53 Rate is 122 beats/min. Rhythm is irregularly irregular, A fib with No ectopy, Rate rt related ST-T wave changes. Left axis deviation noted. QRS interval is normal. QT interval is normal. No Q waves. Administered Medications: 11:57 Drug: Metoprolol IVP 5 mg IVP every 5 minutes; Hold for SBP < 100 or HR < 60. x3 Route: ko1 IVP; Site: left wrist; 12:06 Drug: Metoprolol IVP 5 mg IVP every 5 minutes; Hold for SBP < 100 or HR < 60. x3 Route: ko1 IVP; Site: left wrist; 12:15 Drug: Metoprolol IVP 5 mg IVP every 5 minutes; Hold for SBP < 100 or HR < 60. x3 Route: ko1 IVP; Site: left wrist; 12:30 Follow up: Response: No adverse reaction ko1 Disposition Summary: 08/18/23 14:10 Hospitalization Ordered Notes: Hospitalization Status: Observation rt Provider: Huan Rodríguez rt Location: Telemetry/MedSurg (observation) rt Condition: Stable rt Problem: new rt Symptoms: have improved rt Bed/Room Type: Standard rt Room Assignment: 402(08/18/23 14:21) bc6 Diagnosis - Syncope rt - A-fib with RVR rt Forms: - Medication Reconciliation Form rt - SBAR form rt - Leadership Thank You Letter rt Signatures: Dispatcher [employer] Hilda Bardales, RN RN ko1 Tho Horton MD MD rt Sheridan Bean bc6 Corrections: (The following items were deleted from the chart) 11:48 11:48 BASIC METABOLIC PANEL+C.LAB.BRZ ordered. EDMS EDMS 11:48 11:48 CBC+H.LAB.BRZ ordered. EDMS EDMS 11:48 11:48 HEPATIC FUNCTION+C.LAB.BRZ ordered. EDMS EDMS 11:48 11:48 MAGNESIUM+C.LAB.BRZ ordered. EDMS EDMS 11:48 11:48 Troponin High Sensitivity+C.LAB.BRZ ordered. EDMS EDMS 11:48 11:48 THYROID STIMULAT HORMONE+C.LAB.BRZ ordered. EDMS EDMS 14:21 14:10 rt bc6
--- NOTE | 2023-08-18 14:11 | ER ---
Nurse's Notes [facility] Name: Emanuel Porter Age: 77 yrs Sex: Male : 1945 Arrival Date: 08/18/2023 Time: 11:42 Bed 3 Private MD: Diagnosis: Syncope;A-fib with RVR Presentation: 08/17 12:00 Chief complaint: EMS states: patient was exercising (range of motion and strengthening ko1 to ankle) felt dizzy, afib with rvr on monitor. Coronavirus screen: At this time, the client does not indicate any symptoms associated with coronavirus-19. Ebola Screen: No symptoms or risks identified at this time. Initial Sepsis Screen: Does the patient meet any 2 criteria? No. Patient's initial sepsis screen is negative. Does the patient have a suspected source of infection? No. Patient's initial sepsis screen is negative. Risk Assessment: Do you want to hurt yourself or someone else? Patient reports no desire to harm self or others. Onset of symptoms was August 18, 2023. Care prior to arrival: Medication(s) given: Normal saline infusion, 1000 mL, IV initiated. 18 GA, in the left wrist. 12:00 Method Of Arrival: EMS: [facility] ko1 12:00 Acuity: MOUSTAPHA 2 ko1 Triage Assessment: 12:03 General: Appears in no apparent distress. Behavior is calm, cooperative, appropriate ko1 for age. Pain: Denies pain. Historical: - Allergies: 12:03 No Known Allergies; ko1 - PMHx: 12:03 Arthritis; Depression; Atrial Fib; Hypertension; skin cancer; RESTLESS LEG; ko1 - PSHx: 12:03 Appendectomy; Cholecystectomy; back; ko1 - Immunization history:: Adult Immunizations up to date. - Infectious Disease History:: Denies. - Social history:: Smoking status: Patient denies any tobacco usage or history of. Screenin:06 [facility] ED Fall Risk Assessment (Adult) History of falling in the last 3 months, ko1 including since admission No falls in past 3 months (0 pts) Confusion or Disorientation No (0 pts) Intoxicated or Sedated No (0 pts) Impaired Gait No (0 pts) Mobility Assist Device Used No (0 pt) Altered Elimination No (0 pt) Score/Fall Risk Level 0 - 2 = Low Risk Oriented to surroundings, Maintained a safe environment, Educated pt \T\ family on fall prevention, incl call for assistance when getting out of bed, Assessed \T\ reinforced patient's understanding of fall precautions, Provided non-skid footwear, Hourly rounding (assess needs \T\ fall precautionary measures) done. Abuse screen: Denies threats or abuse. Denies injuries from another. Nutritional screening: No deficits noted. Tuberculosis screening: No symptoms or risk factors identified. Assessment: 12:06 Reassessment: see triage note. ko1 Vital Signs: 12:00 BP 146 / 95; Pulse 124; Resp 16; Temp 97; Pulse Ox 98% on R/A; ko1 12:10 BP 122 / 86; Pulse 91; Resp 16; Pulse Ox 97% ; ko1 12:15 BP 137 / 87; Pulse 86; Resp 16; Pulse Ox 98% ; ko1 12:30 BP 148 / 91; Pulse 91; Resp 18; Pulse Ox 97% ; ko1 12:45 BP 137 / 95; Pulse 91; Resp 16; Pulse Ox 99% ; ko1 13:00 BP 125 / 86; Pulse 88; Resp 14; Pulse Ox 99% ; ko1 13:36 BP 132 / 89; Pulse 76; Resp 15; Pulse Ox 94% ; ko1 14:40 BP 147 / 97; Pulse 88; Resp 16; Pulse Ox 99% ; ko1 Vitals: 12:10 Cardiac Rhythm Assessment Atrial fibrillation. ko1 ED Course: 11:45 Patient arrived in ED. ld1 11:45 Tho Horton MD is Attending Physician. rt 11:52 Hilda Livingston, VIVIANE is Primary Nurse. ko1 12:02 Triage completed. ko1 12:03 Arm band placed on left wrist. Patient placed in an exam room, on a stretcher, on ko1 playground monitor, on pulse oximetry, Patient notified of wait time. 12:06 Patient has correct armband on for positive identification. Bed in low position. Call ko1 light in reach. Side rails up X2. Provided Education on: meds, labs, call light. Client placed on continuous cardiac and pulse oximetry monitoring. NIBP monitoring applied. quality assurance monitor body on. Door closed. Noise minimized. Lights dimmed. Warm blanket given. Pillow given. 12:06 Maintain EMS IV. Dressing intact. Good blood return noted. Site clean \T\ dry. Gauge \T\ ko 1 site: 18g left wrist. 12:16 XRAY Chest (1 view) In Process Unspecified. EDMS 13:00 No provider procedures requiring assistance completed. ko1 14:10 Huan Rodríguez MD is Hospitalizing Provider. rt 14:40 Patient admitted, IV remains in place. ko1 Administered Medications: 11:57 Drug: Metoprolol IVP 5 mg IVP every 5 minutes; Hold for SBP < 100 or HR < 60. x3 Route: ko1 IVP; Site: left wrist; 12:06 Drug: Metoprolol IVP 5 mg IVP every 5 minutes; Hold for SBP < 100 or HR < 60. x3 Route: ko1 IVP; Site: left wrist; 12:15 Drug: Metoprolol IVP 5 mg IVP every 5 minutes; Hold for SBP < 100 or HR < 60. x3 Route: ko1 IVP; Site: left wrist; 12:30 Follow up: Response: No adverse reaction ko1 Medication: 12:06 VIS not applicable for this client. ko1 Outcome: 14:10 Decision to Hospitalize by Provider. rt 14:40 Admitted to Tele accompanied by nurse, via stretcher, room 402, with chart, ko1 14:40 Condition: stable 14:40 Instructed on the need for admit, 14:49 Patient left the ED. ld1 Signatures: Dispatcher [employer] EDMS Lisa Resendiz RN RN ld1 Hilda Livingston RN RN ko1 Tho Horton MD MD rt
[2023-08-18 15:20] VITALS: O2SAT 99; BMI 31.1
[2023-08-18 19:15] LABS: Calcium Oxalate Crystals- Ur Few /HPF (None Seen); Sqamous Epithelial <5 /HPF (None Seen); Urine Bacteria None Seen /HPF (<20); Urine Bilirubin NEGATIVE (Negative); Urine Blood Negative (Negative); Urine Clarity Extremely Turbid (Clear); Urine Color Dark-Yellow (Yellow); Urine Culture Reflex Order NOT NEEDED; Urine Glucose NEGATIVE (Negative); Urine Ketones TRACE (Negative); Urine Microscopic Reflex YN ORDER UMIC; Urine Mucus 4+ /HPF (None Seen); Urine Nitrite NEGATIVE (Negative); Urine Protein 1+ (Negative); Urine Urobilinogen Normal (Normal); Urine WBC <5 /HPF (<5); Urine Yeast (Budding) Trace /HPF (None Seen); Urine pH 5.5 (5.0-7.0)
[2023-08-19 05:23] VITALS: TEMP 96.5
[2023-08-19] MEDS: NITROGLYCERIN 0.4 MG/TAB SL ONE (08:39)
[2023-08-19] MEDS: DULOXETINE 30 MG CAP PO SCH (08:44)
[2023-08-19] MEDS: FLUDROCORTISONE 0.1 MG TAB PO SCH (08:44)
[2023-08-19] MEDS: LEVODOPA PO SCH (08:44)
[2023-08-19] MEDS: CARBIDOPA PO SCH (08:44)
[2023-08-19] MEDS: PRAMIPEXOLE 0.25 MG TAB PO SCH (08:44)
[2023-08-19] MEDS: APIXABAN 5 MG TABLET PO SCH (08:44)
[2023-08-19] MEDS: MIDODRINE HCL 5 MG TABLET PO SCH ×2 (08:45→12:19)
[2023-08-19 08:52] VITALS: BP 125/80
--- NOTE | 2023-08-19 16:48 | EKG ---
Test Date: 2023-08-19 Test Time: 08:40:34 Channeling Machine Operator: DWAYNE MEASUREMENT RESULTS: Intervals: Rate: 92 PA: QRSD: 102 QT: 364 QTc: 450 [place]: P: PA: QRS: 176 T: 7 INTERPRETIVE STATEMENTS: Atrial fibrillation Right axis deviation Low voltage QRS Abnormal ECG Compared to ECG 08/18/2023 11:49:47 Right-axis deviation now present Left-axis deviation no longer present Myocardial infarct finding no longer present Electronically Signed On 08-19-23 16:47:13 CDT by Moises Joseph
--- NOTE | 2023-08-19 16:53 | EKG ---
Test Date: 2023-08-18 Test Time: 11:49:47 [place] Law Clerk: SHEFALI MEASUREMENT RESULTS: Intervals: Rate: 122 MA: QRSD: 82 QT: 332 QTc: 473 [place]: P: MA: QRS: -49 T: 54 INTERPRETIVE STATEMENTS: Atrial fibrillation with rapid ventricular response Left axis deviation Low voltage QRS Septal infarct, age undetermined Abnormal ECG Compared to ECG 05/22/2021 10:55:06 Low QRS voltage now present Sinus bradycardia no longer present Sinus arrhythmia no longer present First degree AV block no longer present Myocardial infarct finding still present Electronically Signed On 08-19-23 16:49:00 CDT by Moises Joseph
--- NOTE | 2023-08-19 20:25 | CON ---
Date of Consultation: 08/19/2023 Reason For Consultation: Syncope. History Of Present Illness: 77-year-old male, history of Parkinson disease, atrial fibrillation, hyp ertension, depression. He has known to have autonomic dysfunction and he has orthostatic hypotension when he stands up and then he passes out, presented to the emergency room after a syncopal episode a nd he had a syncopal episode while he was sitting. Did not recall what happened. By ambulance, it w as reported that he was in AFib with RVR and he feels much better at the present time. Past Medical History: As outlined above in the HPI. Medications: Refer to reconciliation sheet for detailed list. Allergies: NO KNOWN DRUG ALLERGIES. Family History: No premature coronary artery disease or cancer. Social History: He does not smoke or drink. Does not use any drugs. Review of Systems: All systems were reviewed and they were negative except as mentioned in the HPI. Physical Examination: Vital Signs: Reviewed. Head and Neck: Pupils are equal, reactive to light. Intact eye movements. No JVD. No cervical lym phadenopathy. Neck is supple. Thyroid is not enlarged. Lungs: Clear to auscultation bilaterally. No rhonchi, wheezing, or crackles. No accessory muscle u se. Heart: Regular rate and rhythm. No extra sounds. Abdomen: Soft, nontender. Bowel sounds positive. No organomegaly. No masses or hernia. No rigidi ty or rebound. Extremities: No edema, clubbing, or cyanosis. Intact pulses. Skin: No rash. No nodule. Neurologic: Alert, awake, oriented x3. No acute focal deficit appreciated. Lymph Nodes: No cervical or axillary lymphadenopathy. Investigations: Cardiac enzymes x4 are negative. BUN 23, creatinine 1.45, and hemoglobin 13.7. Assessment And Recommendations: 1.Syncope. It was reported in by EMS that he was in atrial fibrillation with rapid ventricular resp onse, which could have contributed to his passing-out spell. Keep do monitoring him on telemetry and if atrial fibrillation is seen, then I will recommend to load with IV amiodarone and to definitely c ontinue with apixaban 5 mg twice a day. 2.Dyslipidemia, on statin. Continue current management. 3.Parkinson disease, which affects his autonomic dysfunction likely causing his orthostatic hypotens ion as well, and he is on midodrine to continue and Florinef to continue. SR/KOKO Voice ID: [id number] Report ID: [id number]
[2023-08-19] MEDS ORDERED: TAMSULOSIN 0.4 MG SR CAP PO SCH (21:00)
[2023-08-19] MEDS ORDERED: ROSUVASTATIN 10 MG TAB PO SCH (21:00)
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
== END 2023-08-19 15:55 | disposition home or self-care (01) ==
LOC: ER 11:42 → 4TH 14:06
PROVIDERS: ADMIT Internal Medicine; ATTEND Internal Medicine
DX: R55 Syncope and collapse (principal); I95.1 Orthostatic hypotension; I48.11 Longstanding persistent atrial fibrillation; I10 Essential (primary) hypertension; G20.A1 Parkinson's disease without dyskinesia, without mention of fluctuations; F32.A Depression, unspecified; E78.5 Hyperlipidemia, unspecified; G25.81 Restless legs syndrome; Z85.828 Personal history of other malignant neoplasm of skin
CPT/HCPCS: 36415; 71045; 80048; 80076; 81001; 82550; 83735; 84443; 84484; 85025; 93005; 96374; 97110; 97112; 97116; 97161; 99285; G0378

== ENCOUNTER 2024-02-26 14:10 | Emergency (ER) | payer OTHER ==
--- NOTE | 2024-02-26 15:30 | RAD REPORT ---
EXAM: Chest Single View HISTORY: CHEST PAIN COMPARISON: 08/18/2023 FINDINGS: LUNGS/PLEURA: The lungs are clear. No pleural effusions or pneumothorax. No pulmonary edema. MEDIASTINUM: The mediastinal silhouette is within normal limits. CARDIAC: The cardiac silhouette is within normal limits. UPPER ABDOMEN: No significant abnormality. BONES: No acute fracture. LINES/TUBES/OTHER: Loop recorder overlies the heart. IMPRESSION: No evidence of acute cardiopulmonary disease.
[2024-02-26 15:45] LABS: Absolute Eosinophils 0.2 K/uL (0-0.5); Absolute Lymphocytes (CBC) 0.5 K/uL (0.7-4.9); Absolute Monocytes 0.7 K/uL (0.1-1.3); Absolute Neutrophil 5.4 K/uL (1.8-8.0); Basophils % 0.4 % (0-1.3); Eosinophils % 2.8 % (0-4.4); Hematocrit 39.2 % (39.6-49.0); Hemoglobin 12.8 g/dL (13.6-17.9); Lymphocytes % 7.5 % (15.3-44.8); MCH 31.4 pg (27.0-35.0); MCHC 32.8 g/dL (32.0-36.0); MCV 95.8 fL (80-100); MPV 8.2 fL (7.6-11.3); Monocytes % 10.6 % (3.3-12.3); Neutrophils % 78.7 % (41.7-73.7); Platelets 185 thou/uL (152-406); RBC Red Blood Cell Count 4.09 M/uL (4.33-5.43); Red Cell Distribution Width 16.7 % (12.1-15.2)
[2024-02-26 15:46] LABS: Protime INR 0.98
[2024-02-26 16:00] LABS: ALT/SGPT < 14 U/L (16-61); AST/SGOT 18 U/L (15-37); Albumin 3.5 g/dL (3.4-5.0); Alkaline Phosphatase 63 U/L (45-117); Anion Gap 9.8 mEq/L (5.0-15.0); BUN Blood Urea Nitrogen 43 mg/dL (7-18); Bicarbonate 27 mEq/L (21-32); Bilirubin Direct 0.2 mg/dL (0-0.2); Bilirubin Indirect, Calculated 0.3 mg/dL (0.2-0.8); Bilirubin Total 0.5 mg/dL (0.2-1.0); Globulin 3.4 g/dL (2.3-3.5); Glomerular Filtration Rate 49 ml/min (=/>90); Glucose Level 128 mg/dL (74-106); Lipase 83 U/L (13-75); Magnesium 2.5 mg/dL (1.6-2.4); NT PRO-BNP 209 pg/mL (<450); Potassium 3.8 mEq/L (3.5-5.1); Protein, Total 6.9 g/dL (6.4-8.2); Sodium Level 139 mEq/L (136-145); Troponin High Sensitivity 5.1 pg/mL (<58.9)
[2024-02-26] MEDS ORDERED: ONDANSETRON 4 MG/2 ML VIAL ONE (16:17)
[2024-02-26] MEDS ORDERED: MORPHINE 4 MG/ML SYR ONE (16:17)
--- NOTE | 2024-02-26 16:48 | RAD REPORT ---
EXAM: CT CHEST, ABDOMEN AND PELVIS WITHOUT CONTRAST CLINICAL INDICATION: Male, 78 years abdominal pain;Chest pain TECHNIQUE: CT chest, abdomen and pelvis was performed, with IV contrast, as per department protocol. Axial, sagittal and coronal reconstructions were obtained. One or more of the following dose reduction techniques were used: Automated exposure control, adjustment of the mA and/or kV according to the patient size, and/or iterative reconstruction. Unless otherwise specified, incidental findings do not require dedicated imaging follow-up. [id number]. COMPARISON: No prior exam. FINDINGS: Chest: LOWER NECK/CHEST WALL: 14 mm right thyroid nodule. Partially calcified 13 mm left thyroid nodule. Rec ommendations for f/u of Incidental Thyroid Nodules (ITN) found on CT, MR, NM and Extrathyroidal US are based upon the ACR white paper and [place] 3-tiered system for managing ITNs: Recommend further evaluation with thyroid ult rasound. LUNGS AND AIRWAYS: Airways are clear. No evidence of airspace or interstitial process. No nodules. PLEURA: No pleural effusion. No pneumothorax. Hemidiaphragms are normally positioned. MEDIASTINUM AND LYMPH NODES: No mediastinal mass or fluid collection. Normal size mediastinal, hilar, and axillary lymph nodes. Mild circumferential thickening at the distal esophagus which could reflect esophagitis. THORACIC AORTA: Normal caliber and configuration. Study is not optimized for evaluation of the thorac ic aorta. PULMONARY ARTERIES: Normal caliber. Study is not optimized for detection of pulmonary emboli. HEART: Atrial appendage occlusion device. Coronary calcifications. Aortic valve calcifications. Small pericardial effusion. Abdomen/Pelvis LIVER: Mild intrahepatic biliary duct dilatation. No focal liver mass. GALLBLADDER/BILE DUCTS: Cholecystomy PANCREAS: No mass, ductal dilation, or fransisco-pancreatic fluid. SPLEEN: Normal size. No focal lesion. ADRENALS: Normal; no mass. KIDNEYS AND URETERS: Multiple renal lesions are identified bilaterally. There is a lesion in the inte rpolar aspect of left kidney measuring 2.6 cm that has intermediate attenuation is indeterminate. Some of the lesions are also incompletely characterized due to their small size. GASTROINTESTINAL TRACT: Stomach is non-dilated. Small bowel has normal course and caliber. No colonic wall thickening or pericolonic inflammatory changes. Moderate colonic stool. PERITONEUM: No free fluid. LYMPH NODES: No lymphadenopathy. ABDOMINAL AORTA AND OTHER VESSELS: Normal caliber aorta and IVC. URINARY BLADDER: Mild circumferential bladder wall thickening REPRODUCTIVE ORGANS: No pathologic process. MUSCULOSKELETAL: Remote appearing L4 compression fracture. Multilevel degenerative changes are presen t in the spine. ADDITIONAL FINDINGS: None IMPRESSION: 1. No acute findings present within the chest, abdomen, or pelvis. 2. Indeterminate bilateral renal lesions. Nonemergent renal cortical CT or MRI is recommended further evaluation. 3. Indeterminate thyroid nodules. Nonemergent thyroid ultrasound is recommended. 4. Other incidental findings as noted above.
[2024-02-26] MEDS ORDERED: HYDROMORPHONE HCL 1 MG/ML INJ ONE (17:16)
--- NOTE | 2024-02-26 18:17 | ER ---
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 14:35 Coronavirus screen: At this time, the client does not indicate any symptoms associated aa5 with coronavirus-19. Ebola Screen: Patient denies travel to an Ebola-affected area in the 21 days before illness onset. Initial Sepsis Screen: Does the patient meet any 2 criteria? No. Patient's initial sepsis screen is negative. Does the patient have a suspected source of infection? No. Patient's initial sepsis screen is negative. Risk Assessment: Do you want to hurt yourself or someone else? Patient reports no desire to harm self or others. Onset of symptoms was February 26, 2024. 14:35 Acuity: MOUSTAPHA 2 aa5 14:35 Method Of Arrival: Wheelchair aa5 Historical: - Allergies: 14:49 No Known Allergies; aa5 - PMHx: 14:35 Arthritis; Atrial Fib; Depression; Hypertension; RESTLESS LEG; skin cancer; Parkinson's aa5 disease; - PSHx: 14:35 Appendectomy; back; Cholecystectomy; aa5 - Immunization history:: Adult Immunizations unknown. - Infectious Disease History:: Denies. - Social history:: Smoking status: unknown. Screenin:32 [facility] ED Fall Risk Assessment (Adult) History of falling in the last 3 months, tm6 including since admission No falls in past 3 months (0 pts) Confusion or Disorientation No (0 pts) Intoxicated or Sedated No (0 pts) Impaired Gait No (0 pts) Mobility Assist Device Used No (0 pt) Altered Elimination No (0 pt) Score/Fall Risk Level 0 - 2 = Low Risk Oriented to surroundings, Maintained a safe environment, Educated pt \\T\\ family on fall prevention, incl call for assistance when getting out of bed. Abuse screen: Denies threats or abuse. Denies injuries from another. Nutritional screening: No deficits noted. Tuberculosis screening: No symptoms or risk factors identified. Assessment: 16:00 General: Appears in no apparent distress. uncomfortable, Behavior is calm, cooperative, ph appropriate for age. Pain: Complains of pain in chest Pain does not radiate. Pain began 2 hours ago. Neuro: Level of Consciousness is awake, alert, obeys commands, Oriented to person, place, time, situation. Cardiovascular: Reports chest pain, shortness of breath. Respiratory: Airway is patent Respiratory effort is even, unlabored, Respiratory pattern is regular, symmetrical. GI: No signs and/or symptoms were reported involving the gastrointestinal system. Derm: Skin is pink, warm \\T\\ dry. Musculoskeletal: Circulation, motion, and sensation intact. Range of motion: intact in all extremities. 17:30 Reassessment: Patient and/or family updated on plan of care and expected duration. Pain tm6 level reassessed. Patient is alert, oriented x 3, equal unlabored respirations, skin warm/dry/pink. 18:45 Reassessment: Patient appears in no apparent distress at this time. Helped pt to ph bedside to use urinal, pt noted to be weak and drowsy after IV Dilaudid, attempted to help pt back into bed, pt states, "No, I'm supposed to go home and I don't want to have to go through the struggle of getting out of bed again." technology lead Schuyler at bedside to assist pt in standing, pt noted to be weak and staff was unable to assist him in the wheelchair. Informed pt that I am concerned that he and his will have difficulty getting him home w/ him still drowsy and weak from the pain medication he received, will continue to monitor pt until more awake and alert. Vital Signs: 14:35 BP 187 / 89; Pulse 96; Resp 18 S; Temp 97.8(TE); Pulse Ox 96% on R/A; aa5 15:32 BP 171 / 82; Pulse 60; Pulse Ox 97% on R/A; MAP 103 mmHg; tm6 16:01 BP 167 / 75; Pulse 69; Resp 18; Pulse Ox 95% on R/A; ph 17:30 BP 160 / 83; Pulse 71; Pulse Ox 95% on R/A; MAP 107 mmHg; Pain 10/10; tm6 18:30 BP 146 / 75; Pulse 80; Resp 18; Pulse Ox 97% on 2 lpm NC; ph 17:30 Pain Scale: Adult tm6 ED Course: 14:12 Patient arrived in ED. ra3 14:35 Arm band placed on. aa5 14:37 EKG completed in triage. Results shown to MD. aa5 14:41 Latoya Vasquez MD is Attending Physician. sp3 14:49 Triage completed. aa5 15:07 XRAY Chest (1 view) In Process Unspecified. EDMS 15:15 Elizabeth Allison, RN is Primary Nurse. ph 15:25 Initial lab(s) drawn, by me, sent to lab. Inserted saline lock: 20 gauge in left ph antecubital area, using aseptic technique. Blood collected. Flushed with 10 mL NS. 15:32 Patient has correct armband on for positive identification. Placed in gown. Bed in low tm6 position. Call light in reach. Side rails up X 1. Provided Education on: use of call gray. Client placed on continuous cardiac and pulse oximetry monitoring. NIBP monitoring applied. facility rehab director on. Pulse ox on. NIBP on. Door closed. Noise minimized. Warm blanket given. Pillow given. 15:32 Patient maintains SpO2 saturation greater than 95% on room air. tm6 16:34 CT Chest, Abdomen, Pelvis - W/Contrast In Process Unspecified. EDMS 17:30 Troponin High Sensitivity: #2 Trop Sent. tm6 19:16 No provider procedures requiring assistance completed. ph 21:08 IV discontinued, intact, bleeding controlled, No redness/swelling at site. Pressure vc1 dressing applied. Administered Medications: 16:20 Drug: morphine IVP or IV 4 mg IVP once over 4 mins Route: IVP; Infused Over: 4 mins; ph Site: left antecubital; 17:06 Follow up: Response: No adverse reaction tm6 16:20 Drug: Ondansetron IVP 4 mg IVP once; over 2 minutes Route: IVP; Site: left antecubital; ph 17:06 Follow up: Response: No adverse reaction tm6 17:30 Drug: HYDROmorphone IVP 1 mg IVP once Route: IVP; Site: left antecubital; tm6 19:16 Follow up: Response: No adverse reaction; Pain is decreased; RASS: Light sedation (-2) ph Medication: 15:32 VIS not applicable for this client. tm6 Outcome: 18:16 Discharge ordered by . sp3 21:07 Discharged to home via wheelchair, with significant other, vc1 21:07 Condition: good 21:07 Discharge instructions given to patient, Instructed on discharge instructions, follow up and referral plans. medication usage, Demonstrated understanding of instructions, follow-up care, medications, Prescriptions given X 1, 21:09 Patient left the ED. vc1 Signatures: Dispatcher [employer] EDMS Deidre Garcia RN RN aa5 Elizabeth Allison RN RN Latoya Sarmiento MD MD sp3 Fide Gaines RN RN vc1 Kari Wynne RN RN [id number] Sheela Rockwell 3
--- NOTE | 2024-02-26 18:17 | EDPHYS ---
Physician Documentation [facility] Name: Emanuel Porter Age: 78 yrs Sex: Male : 1945 Arrival Date: 02/26/2024 Time: 14:10 Bed 2 Private MD: ED Physician Latoya Vasquez HPI: 02/25 15:17 This 78 yrs old Male presents to ER via Wheelchair with complaints of Chest Pain. sp3 15:18 78-year-old male with a history of atrial fibrillation status post Watchman procedure, sp3 hypertension, Parkinson's now presents ED with chief complaint chest pain from his mid sternum down to the epigastric region. He denies any shortness of breath, headache, vomiting, diarrhea, syncope, near syncope, fever, known sick contacts, travel history, or any other signs or symptoms on ROS at this time.. Historical: - Allergies: 14:49 No Known Allergies; aa5 - PMHx: 14:35 Arthritis; Atrial Fib; Depression; Hypertension; RESTLESS LEG; skin cancer; Parkinson's aa5 disease; - PSHx: 14:35 Appendectomy; back; Cholecystectomy; aa5 - Immunization history:: Adult Immunizations unknown. - Infectious Disease History:: Denies. - Social history:: Smoking status: unknown. ROS: 15:18 Constitutional: Negative for fever, chills, and weight loss, Eyes: Negative for injury, sp3 pain, redness, and discharge, ENT: Negative for injury, pain, and discharge, Neck: Negative for injury, pain, and swelling, Respiratory: Negative for shortness of breath, cough, wheezing, and pleuritic chest pain, Back: Negative for injury and pain, : Negative for injury, bleeding, discharge, and swelling, MS/Extremity: Negative for injury and deformity, Skin: Negative for injury, rash, and discoloration, Neuro: Negative for headache, weakness, numbness, tingling, and seizure, Psych: Negative for depression, anxiety, suicide ideation, homicidal ideation, and hallucinations, Allergy/Immunology: Negative for hives, rash, and allergies, Endocrine: Negative for neck swelling, polydipsia, polyuria, polyphagia, and marked weight changes, Hematologic/Lymphatic: Negative for swollen nodes, abnormal bleeding, and unusual bruising, 15:18 All other systems are negative, Exam: 15:18 Constitutional: This is a well developed, well nourished patient who is awake, alert, sp3 and in no acute distress. Head/Face: Normocephalic, atraumatic. Eyes: Pupils equal round and reactive to light, extra-ocular motions intact. Lids and lashes normal. Conjunctiva and sclera are non-icteric and not injected. Cornea within normal limits. Periorbital areas with no swelling, redness, or edema. ENT: Nares patent. No nasal discharge, no septal abnormalities noted. External auditory canals are clear. Oropharynx with no redness, swelling, or masses, exudates, or evidence of obstruction, uvula midline. Mucous membranes moist. Neck: Trachea midline, no thyromegaly or masses palpated, and no cervical lymphadenopathy. Supple, full range of motion without nuchal rigidity, or vertebral point tenderness. No Meningismus. Chest/axilla: Normal chest wall appearance and motion. Nontender with no deformity. No lesions are appreciated. Cardiovascular: Regular rate and rhythm with a normal S1 and S2. No gallops, murmurs, or rubs. Normal PMI, no JVD. No pulse deficits. Respiratory: Lungs have equal breath sounds bilaterally, clear to auscultation and percussion. No rales, rhonchi or wheezes noted. No increased work of breathing, no retractions or nasal flaring. Back: No spinal tenderness. No costovertebral tenderness. Full range of motion. Skin: Warm, dry with normal turgor. Normal color with no rashes, no lesions, and no evidence of cellulitis. MS/ Extremity: Pulses equal, no cyanosis. Neurovascular intact. Full, normal range of motion. Neuro: Awake and alert, GCS 15, oriented to person, place, time, and situation. Cranial nerves II-XII grossly intact. Motor strength 5/5 in all extremities. Sensory grossly intact. Cerebellar exam normal. Normal gait. Psych: Awake, alert, with orientation to person, place and time. Behavior, mood, and affect are within normal limits. 15:18 Abdomen/GI: Mild epigastric pain to palpation, 15:19 ECG was reviewed by the Attending Physician. EKG demonstrates normal sinus rhythm at 64 sp3 bpm with normal intervals except first-degree AV block with VA interval 204, leftward axis, poor R wave progression on QRS, and nonspecific diffuse ST/T changes without evidence of acute ischemia. Vital Signs: 14:35 BP 187 / 89; Pulse 96; Resp 18 S; Temp 97.8(TE); Pulse Ox 96% on R/A; aa5 15:32 BP 171 / 82; Pulse 60; Pulse Ox 97% on R/A; MAP 103 mmHg; tm6 16:01 BP 167 / 75; Pulse 69; Resp 18; Pulse Ox 95% on R/A; ph 17:30 BP 160 / 83; Pulse 71; Pulse Ox 95% on R/A; MAP 107 mmHg; Pain 10/10; tm6 18:30 BP 146 / 75; Pulse 80; Resp 18; Pulse Ox 97% on 2 lpm NC; ph 17:30 Pain Scale: Adult tm6 MDM: 14:41 Medical Screening Exam initiated sp3 15:19 Data reviewed: vital signs, nurses notes, lab test result(s), EKG, radiologic studies. sp3 ED course: . 15:20 ED course: 78-year-old male with PMH above now with chest pain and epigastric pain. sp3 Differential diagnosis includes acute coronary syndrome, pancreatitis, gastritis, musculoskeletal pain, pleuritic pain, among others. I am not highly suspicious for TAD, PE or any other critical process including sepsis or shock. Workup will include CT scan of the chest abdomen pelvis with IV contrast, general labs including lipase and troponin and lactate, and general supportive care with disposition pending workup and patient course.. 16:04 ED course: Lipase mildly elevated. CT pending. Troponin negative.. sp3 18:15 ED course: Second troponin negative. Pain is now epigastric rating into the back. Pain sp3 is improved after Dilaudid. CT again demonstrates no critical findings. I had extensive conversation on admission versus discharge and follow-up and patient wants to be discharged. He knows he can return if he changes his mind or if his symptoms get worse. Will discharge on tramadol follow-up to Dr. Rodríguez's office.. 02/25 14:42 Order name: Basic Metabolic Panel; Complete Time: 16:04 sp3 02/25 14:42 Order name: CBC with Diff; Complete Time: 16:04 sp3 02/25 14:42 Order name: LFT's; Complete Time: 16:04 sp3 02/25 14:42 Order name: Magnesium; Complete Time: 16:04 sp3 02/25 14:42 Order name: NT PRO-BNP; Complete Time: 16:04 sp3 02/25 14:42 Order name: PT-INR; Complete Time: 16:04 sp3 02/25 14:42 Order name: Troponin HS; Complete Time: 16:04 sp3 02/25 15:17 Order name: Lactate w/ 2H reflex if indic.; Complete Time: 16:04 sp3 02/25 15:36 Order name: Lipase; Complete Time: 16:04 EDMS 02/25 17:06 Order name: Troponin High Sensitivity: #2 Trop; Complete Time: 18:01 sp3 02/25 14:42 Order name: XRAY Chest (1 view); Complete Time: 16:04 sp3 02/25 15:18 Order name: CT Chest, Abdomen, Pelvis - W/Contrast; Complete Time: 17:04 sp3 02/25 14:42 Order name: Cardiac monitoring; Complete Time: 15:15 sp3 02/25 14:42 Order name: EKG - Nurse/Tech; Complete Time: 15:15 sp3 02/25 14:42 Order name: IV Saline Lock; Complete Time: 15:59 sp3 02/25 14:42 Order name: Labs collected and sent; Complete Time: 15:59 sp3 02/25 14:42 Order name: O2 Per Protocol; Complete Time: 15:15 sp3 02/25 14:42 Order name: O2 Sat Monitoring; Complete Time: 15:15 sp3 Administered Medications: 16:20 Drug: morphine IVP or IV 4 mg IVP once over 4 mins Route: IVP; Infused Over: 4 mins; ph Site: left antecubital; 17:06 Follow up: Response: No adverse reaction tm6 16:20 Drug: Ondansetron IVP 4 mg IVP once; over 2 minutes Route: IVP; Site: left antecubital; ph 17:06 Follow up: Response: No adverse reaction tm6 17:30 Drug: HYDROmorphone IVP 1 mg IVP once Route: IVP; Site: left antecubital; tm6 19:16 Follow up: Response: No adverse reaction; Pain is decreased; RASS: Light sedation (-2) ph Disposition Summary: 02/26/24 18:16 Discharge Ordered Notes: Location: Home sp3 Condition: Stable sp3 Diagnosis - Abdominal pain, possible pancreatitis sp3 Followup: sp3 - With: Private Physician - When: Upon discharge from the Emergency Department - Reason: Continuance of care Discharge Instructions: - Discharge Summary Sheet sp3 - Abdominal Pain, Adult sp3 - Pancreatitis Eating Plan sp3 Forms: - Medication Reconciliation Form sp3 - Antibiotic Education sp3 - Prescription Opioid Use sp3 - Patient Portal Instructions sp3 - Leadership Thank You Letter sp3 Prescriptions: - Tramadol 50 mg Oral Tablet - take 1 tablet ORAL route every 8 hours as needed; 12 tablet; Refills: 0, sp3 Product Selection Permitted Signatures: Dispatcher [employer] Deidre Smith RN RN aa5 Elizabeth Allison RN RN Latoya Vasquez MD MD sp3 Kari Wynne RN RN tm6 Corrections: (The following items were deleted from the chart) 15:36 15:17 LIPASE+C.LAB.BRZ ordered. EDND EDND
[2024-02-27 01:18] VITALS: TEMP 97.8
[2024-02-27 01:27] VITALS: BP 146/75; O2SAT 97
== END 2024-02-26 21:09 | disposition home or self-care (01) ==
LOC: ER 14:10
DX: R10.13 Epigastric pain (principal); R07.9 Chest pain, unspecified; G20.A1 Parkinson's disease without dyskinesia, without mention of fluctuations
CPT/HCPCS: 85025; 80048; 36415; 83735; 85610; 80076; 83605; 84484 ×2; 83690; 83880; 71260; 74177; 71045; 96375; 96374; 99285; Q9967; J1171; J2405

== ENCOUNTER 2024-03-02 20:40 | Observation (INO) | payer OTHER ==
[2024-03-02] MEDS ORDERED: ASPIRIN 81 MG CHEWABLE TABLET ONE (21:10)
[2024-03-02 21:16] LABS: Absolute Lymphocytes (CBC) 0.4 K/uL (0.7-4.9); Absolute Monocytes 0.8 K/uL (0.1-1.3); Basophils % 0.1 % (0-1.3); Hematocrit 40.4 % (39.6-49.0); Hemoglobin 13.6 g/dL (13.6-17.9); Lymphocytes % 4.7 % (15.3-44.8); MCHC 33.7 g/dL (32.0-36.0); MCV 95.1 fL (80-100); MPV 7.5 fL (7.6-11.3); Monocytes % 9.6 % (3.3-12.3); Neutrophils % 85.6 % (41.7-73.7); Nucleated Red Blood Cells % 0.3 % (0-0); Platelets 261 thou/uL (152-406); RBC Red Blood Cell Count 4.25 M/uL (4.33-5.43); Red Cell Distribution Width 16.2 % (12.1-15.2)
[2024-03-02 21:23] LABS: PT Prothrombin Time 10.5 SECONDS (9.4-12.5); Protime INR 0.94
--- NOTE | 2024-03-02 21:30 | RAD REPORT ---
EXAM: Chest Single View HISTORY: PAIN COMPARISON: 02/26/2024 FINDINGS: LUNGS/PLEURA: The lungs are clear. No pleural effusions or pneumothorax. No pulmonary edema. MEDIASTINUM: The mediastinal silhouette is within normal limits. CARDIAC: Cardiomegaly. Loop recorder. UPPER ABDOMEN: No significant abnormality. BONES: No acute fracture. LINES/TUBES/OTHER: N/A IMPRESSION: No evidence of acute cardiopulmonary disease.
[2024-03-02 22:03] LABS: Albumin 3.2 g/dL (3.4-5.0); Albumin/Globulin Ratio 0.9 (1.1-1.8); Anion Gap 9.7 mEq/L (5.0-15.0); Bilirubin Direct 0.2 mg/dL (0-0.2); Bilirubin Indirect, Calculated 0.3 mg/dL (0.2-0.8); Bilirubin Total 0.5 mg/dL (0.2-1.0); Globulin 3.4 g/dL (2.3-3.5); Magnesium 2.3 mg/dL (1.6-2.4); Potassium 3.7 mEq/L (3.5-5.1); Protein, Total 6.6 g/dL (6.4-8.2); Thyroid Stimulating Hormone 1.17 uIU/mL (0.358-3.740); Troponin High Sensitivity 7.3 pg/mL (<58.9)
[2024-03-02] MEDS ORDERED: METOPROLOL TARTRATE 5 MG/5 ML INJ IV ONE (22:10)
[2024-03-02 22:13] LABS: Blood Morphology Comment NOT SEEN (NOT SEEN); Platelet Estimate ADEQ; White Blood Cell Scan OK (OK)
--- NOTE | 2024-03-02 22:35 | EDPHYS ---
Physician Documentation [facility] Name: Emanuel Porter Age: 78 yrs Sex: Male : 1945 Arrival Date: 03/02/2024 Time: 20:40 Bed 15 Private MD: ED Physician Mehul Resendiz HPI: 03/02 22:31 This 78 yrs old Male presents to ER via Wheelchair with complaints of Chest Pain. kb 22:32 Pt is a 78 year old male who presents for chest pain and a.fib. States his watch kb alerted him that he was in a.fib. Reports he had an ablasion over the summer and hasn't had a.fib since then until now. Denies shortness of breath. Historical: - Allergies: 20:59 Ciprofloxacin; cp4 - PMHx: 20:59 Arthritis; Atrial Fib; Depression; Hypertension; Parkinson's disease; RESTLESS LEG; cp4 skin cancer; - PSHx: 20:59 Appendectomy; back; Cholecystectomy; cp4 - Immunization history:: Adult Immunizations up to date. - Infectious Disease History:: Denies. - Social history:: Smoking status: Patient denies any tobacco usage or history of. ROS: 22:31 Constitutional: As per HPI kb Exam: 22:31 Constitutional: This is a well developed, well nourished patient who is awake, alert, kb and in no acute distress. Head/Face: Normocephalic, atraumatic. ENT: Moist Mucous membranes Respiratory: Respirations even and unlabored. No increased work of breathing. Talking in full sentences Abdomen/GI: Soft, non-tender. No distention Skin: Warm, dry with normal turgor. Normal color. MS/ Extremity: Pulses equal, no cyanosis. Neurovascular intact. Full, normal range of motion. Neuro: Awake and alert, GCS 15, oriented to person, place, time, and situation. 22:31 Cardiovascular: Rate: tachycardic, Rhythm: irregularly irregular, kb 22:33 ECG was reviewed by the Attending Physician. kb Vital Signs: 20:44 BP 172 / 112; Pulse 110; Resp 18; Temp 98.2; Pulse Ox 99% ; Weight 98.43 kg; Height 5 cp4 ft. 8 in. ; Pain 4/10; 21:30 BP 170 / 118; Pulse 97; Resp 22; Pulse Ox 97% ; me1 22:00 BP 168 / 120; Pulse 101; Resp 19; Pulse Ox 98% ; me1 22:24 BP 151 / 111; Pulse 83; Resp 19; Pulse Ox 100% ; me1 23:47 BP 154 / 110; Pulse 86; Resp 18; Temp 98.2; Pulse Ox 98% ; Pain 0/10; bm8 20:44 Body Mass Index 32.99 (98.43 kg, 172.72 cm) cp4 20:44 Pain Scale: Adult cp4 23:47 Pain Scale: Adult bm8 Crooks Coma Score: 23:47 Eye Response: spontaneous(4). Motor Response: obeys commands(6). Verbal Response: bm8 oriented(5). Total: 15. MDM: 20:46 Medical Screening Exam initiated kb 22:30 Differential diagnosis: arrhythmia, acute mi. Data reviewed: vital signs, nurses notes. kb Consideration of Admission/Observation Patient was admitted/placed on observation. Escalation of care including admission/observation considered. Management of patient was discussed with the following: Hospitalist: Dr Avendano accepts pt for admission. Primary Care Provider: Dr Rodríguez contacted. He is out to the hospitalist group. Historians other than the Patient: Spouse/Significant Other: . Counseling: I had a detailed discussion with the patient and/or guardian regarding the historical points, exam findings, and any diagnostic results supporting the discharge/admit diagnosis, lab results, radiology results, the need for further work-up and treatment in the hospital. 03/02 21:01 Order name: Basic Metabolic Panel; Complete Time: 22:04 kb 03/02 21:01 Order name: CBC with Diff; Complete Time: 22:13 kb 03/02 21:01 Order name: LFT's; Complete Time: 22:04 kb 03/02 21:01 Order name: Magnesium; Complete Time: 22:04 kb 03/02 21:01 Order name: NT PRO-BNP; Complete Time: 22:04 kb 03/02 21:01 Order name: PT-INR; Complete Time: 21:29 kb 03/02 21:01 Order name: Troponin HS; Complete Time: 22:04 kb 03/02 21:01 Order name: TSH; Complete Time: 22:04 kb 03/02 22:13 Order name: CBC Smear Scan; Complete Time: 22:13 EDMS 12/14 00:34 Order name: Thyroid Stimulating Hormone EDMS 03/03 00:34 Order name: Urinalysis w/ reflexes EDMS 03/03 00:34 Order name: CBC with Automated Diff EDMS 03/03 00:34 Order name: CBC with Automated Diff EDMS 03/03 00:34 Order name: Comprehensive Metabolic Panel EDMS 03/03 00:34 Order name: Comprehensive Metabolic Panel EDMS 03/03 00:34 Order name: Lipid Profile EDMS 03/03 00:34 Order name: Lipid Profile EDMS 03/03 00:34 Order name: Magnesium EDMS 03/03 00:34 Order name: Magnesium EDMS 03/03 00:34 Order name: Phosphorus EDMS 03/03 00:34 Order name: Phosphorus EDMS 03/03 00:34 Order name: Troponin High Sensitivity EDMS 03/03 00:34 Order name: Troponin High Sensitivity EDMS 03/03 00:34 Order name: Troponin High Sensitivity EDMS 03/03 00:34 Order name: Troponin High Sensitivity EDMS 03/02 21:01 Order name: XRAY Chest (1 view); Complete Time: 21:30 kb 03/02 21:01 Order name: Cardiac monitoring; Complete Time: 21:13 kb 03/02 21:01 Order name: EKG - Nurse/Tech; Complete Time: 21:13 kb 03/02 21:01 Order name: IV Saline Lock; Complete Time: 21:13 kb 03/02 21:01 Order name: Labs collected and sent; Complete Time: 21:13 kb 03/02 21:01 Order name: O2 Per Protocol; Complete Time: 21:13 kb 03/02 21:01 Order name: O2 Sat Monitoring; Complete Time: 21:13 kb EC:33 Rate is 111 beats/min. Rhythm is irregularly irregular. Left axis deviation noted. QRS kb interval is normal at 98 msec. QT interval is normal at 456 msec. Administered Medications: 21:18 Drug: Aspirin PO Chewable Tablet 324 mg PO once; 81 mg tablets x 4 Route: PO; me1 21:18 Follow up: Response: No adverse reaction me1 22:12 Drug: Metoprolol IVP 5 mg IVP once; Hold for SBP <100 or HR <60. Route: IVP; Site: me1 right forearm; 22:24 Follow up: Response: No adverse reaction me1 Disposition: 03/03 00:10 I was immediately available on-site in the Emergency Department for consultation in the ms3 care of the patient. Disposition Summary: 03/02/24 22:34 Hospitalization Ordered Notes: Hospitalization Status: Observation kb Provider: Cassandra Avendano Location: Telemetry/MedSurg (observation) kb Condition: Stable kb Problem: new kb Symptoms: are unchanged kb Bed/Room Type: Standard Room Assignment: 414(03/02/24 23:47) rv1 Diagnosis - Chest pain, unspecified kb - Unspecified atrial fibrillation kb Forms: - Medication Reconciliation Form kb - SBAR form kb - Leadership Thank You Letter kb Signatures: Dispatcher [employer] EDWI Christine Gregory, SOLAR PANEL INSTALLATION SUPERVISOR-C SOLAR PANEL INSTALLATION SUPERVISOR-Ckb Mehul Resendiz DO DO ms3 Sonali Garnica rv1 Libby Delarosa RN RN me1 Lara Schumacher cp4 Corrections: (The following items were deleted from the chart) 03/02 21:02 21:02 BASIC METABOLIC PANEL+C.LAB.BRZ ordered. [facility] EDWI 21:02 21:02 CBC+H.LAB.BRZ ordered. EDWI EDWI 21:02 21:02 HEPATIC FUNCTION+C.LAB.BRZ ordered. [facility] EDWI 21:02 21:02 MAGNESIUM+C.LAB.BRZ ordered. [facility] EDWI 21:02 21:02 PROBNP+C.LAB.BRZ ordered. [facility] EDWI 21:02 21:02 PROTIME (+INR)+COAG.LAB.BRZ ordered. [facility] 21:02 21:02 Troponin High Sensitivity+C.LAB.BRZ ordered. EDWI EDWI 21:02 21:02 THYROID STIMULAT HORMONE+C.LAB.BRZ ordered. [facility] EDWI 21:02 21:02 Chest Single View+RAD.RAD.BRZ ordered. [facility] EDWI 22:32 22:31 Constitutional: This is a well developed, well nourished patient who is awake, kb alert, and in no acute distress. Head/Face: Normocephalic, atraumatic. ENT: Moist Mucous membranes Cardiovascular: Regular rate Respiratory: Respirations even and unlabored. No increased work of breathing. Talking in full sentences Abdomen/GI: Soft, non-tender. No distention Skin: Warm, dry with normal turgor. Normal color. MS/ Extremity: Pulses equal, no cyanosis. Neurovascular intact. Full, normal range of motion. Neuro: Awake and alert, GCS 15, oriented to person, place, time, and situation. kb 23:47 22:34 kb rv1
--- NOTE | 2024-03-02 22:35 | ER ---
Nurse's Notes [facility] Name: Emanuel Porter Age: 78 yrs Sex: Male : 1945 Arrival Date: 03/02/2024 Time: 20:40 Bed 15 Private MD: Diagnosis: Chest pain, unspecified;Unspecified atrial fibrillation Presentation: 03/02 20:44 Chief complaint: Patient states: chest pain that started 30 minutes prior to arrival. me1 States he was here last Tuesday for chest pain and was diagnosed Tuesday with costrocondritis. 20:44 Coronavirus screen: Client denies travel out of the [place] in the last 14 days. At this cp4 time, the client does not indicate any symptoms associated with coronavirus-19. Ebola Screen: Patient negative for fever greater than or equal to 101.5 degrees Fahrenheit, and additional compatible Ebola Virus Disease symptoms Patient denies exposure to infectious person. Patient denies travel to an Ebola-affected area in the 21 days before illness onset. No symptoms or risks identified at this time. Initial Sepsis Screen: Does the patient meet any 2 criteria? RR > 20 per min. No. Patient's initial sepsis screen is negative. Does the patient have a suspected source of infection? No. Patient's initial sepsis screen is negative. Risk Assessment: Do you want to hurt yourself or someone else? Patient reports no desire to harm self or others. Onset of symptoms was March 02, 2024 at 20:00. 20:44 Method Of Arrival: Wheelchair cp4 20:44 Acuity: MOUSTAPHA 3 cp4 Triage Assessment: 20:59 General: Appears in no apparent distress. uncomfortable, Behavior is calm, cooperative, cp4 appropriate for age. Pain: Complains of pain in chest Pain currently is 4 out of 10 on a pain scale. Cardiovascular: Patient's skin is warm and dry. Historical: - Allergies: 20:59 Ciprofloxacin; cp4 - PMHx: 20:59 Arthritis; Atrial Fib; Depression; Hypertension; Parkinson's disease; RESTLESS LEG; cp4 skin cancer; - PSHx: 20:59 Appendectomy; back; Cholecystectomy; cp4 - Immunization history:: Adult Immunizations up to date. - Infectious Disease History:: Denies. - Social history:: Smoking status: Patient denies any tobacco usage or history of. Screenin:00 [facility] ED Fall Risk Assessment (Adult) History of falling in the last 3 months, me1 including since admission No falls in past 3 months (0 pts) Confusion or Disorientation No (0 pts) Intoxicated or Sedated No (0 pts) Impaired Gait No (0 pts) Mobility Assist Device Used No (0 pt) Altered Elimination No (0 pt) Score/Fall Risk Level 0 - 2 = Low Risk Maintained a safe environment, Provided non-skid footwear, Hourly rounding (assess needs \T\ fall precautionary measures) done. Abuse screen: Denies threats or abuse. Nutritional screening: No deficits noted. Tuberculosis screening: No symptoms or risk factors identified. Assessment: 21:00 General: Appears uncomfortable, well groomed, well developed, well nourished, Behavior me1 is calm, cooperative, appropriate for age, Reports chest pain that started 30 minutes prior to arrival. States he was here last Tuesday for chest pain and was diagnosed Tuesday with costrocondritis. Pain: Complains of pain in chest Pain does not radiate. Pain currently is 3 out of 10 on a pain scale. at worst was 8 out of 10 on a pain scale. Quality of pain is described as sharp, stabbing, Pain began suddenly, 30 min ago. Is continuous. Neuro: Level of Consciousness is awake, alert, obeys commands, Oriented to person, place, time, situation, Appropriate for age. Cardiovascular: Patient's skin is warm and dry. Respiratory: Airway is patent Respiratory effort is even, unlabored, Respiratory pattern is regular, symmetrical. GI: No signs and/or symptoms were reported involving the gastrointestinal system. : No signs and/or symptoms were reported regarding the genitourinary system. EENT: No signs and/or symptoms were reported regarding the EENT system. Derm: Skin is intact, is healthy with good turgor, Skin is pink, warm \T\ dry. Musculoskeletal: No signs and/or symptoms reported regarding the musculoskeletal system. 23:47 Reassessment: Patient appears in no apparent distress at this time. Patient and/or bm8 family updated on plan of care and expected duration. Pain level reassessed. Patient is alert, oriented x 3, equal unlabored respirations, skin warm/dry/pink. Patient denies pain at this time. Patient states feeling better. Patient states symptoms have improved. Vital Signs: 20:44 BP 172 / 112; Pulse 110; Resp 18; Temp 98.2; Pulse Ox 99% ; Weight 98.43 kg; Height 5 cp4 ft. 8 in. ; Pain 4/10; 21:30 BP 170 / 118; Pulse 97; Resp 22; Pulse Ox 97% ; me1 22:00 BP 168 / 120; Pulse 101; Resp 19; Pulse Ox 98% ; me1 22:24 BP 151 / 111; Pulse 83; Resp 19; Pulse Ox 100% ; me1 23:47 BP 154 / 110; Pulse 86; Resp 18; Temp 98.2; Pulse Ox 98% ; Pain 0/10; bm8 20:44 Body Mass Index 32.99 (98.43 kg, 172.72 cm) cp4 20:44 Pain Scale: Adult cp4 23:47 Pain Scale: Adult bm8 Enterprise Coma Score: 23:47 Eye Response: spontaneous(4). Motor Response: obeys commands(6). Verbal Response: bm8 oriented(5). Total: 15. ED Course: 20:42 Patient arrived in ED. ra3 20:44 Arm band placed on right wrist. Patient placed in an exam room, on a stretcher. cp4 20:46 Christine Gregory FNP-C is [facility]. kb 20:46 Mehul Resendiz DO is Attending Physician. kb 20:48 Libby Delarosa, VIVIANE is Primary Nurse. me1 20:59 Triage completed. cp4 21:00 Patient has correct armband on for positive identification. Bed in low position. Call oh1 light in reach. Side rails up X2. Provided Education on: POC. Verbalized understanding. Client placed on continuous cardiac and pulse oximetry monitoring. NIBP monitoring applied. water quality tester on. Pulse ox on. NIBP on. 21:00 No provider procedures requiring assistance completed. Patient maintains SpO2 oh1 saturation greater than 95% on room air. 21:12 Initial lab(s) drawn, by me, sent to lab. Inserted saline lock: 22 gauge in right me1 forearm, using aseptic technique. 21:13 TSH Sent. me1 21:13 Basic Metabolic Panel Sent. me1 21:13 CBC with Diff Sent. me1 21:13 LFT's Sent. me1 21:13 Magnesium Sent. me1 21:13 NT PRO-BNP Sent. me1 21:13 PT-INR Sent. me1 21:13 Troponin HS Sent. me1 21:20 XRAY Chest (1 view) In Process Unspecified. EDMS 21:20 EKG done, by ED staff, reviewed by Christine CHANEY. oe 22:34 Cassandra Avendano MD is Hospitalizing Provider. kb 23:47 Provided Education on: need for admission. bm8 23:47 Patient admitted, IV remains in place. bm8 Administered Medications: 21:18 Drug: Aspirin PO Chewable Tablet 324 mg PO once; 81 mg tablets x 4 Route: PO; me1 21:18 Follow up: Response: No adverse reaction me1 22:12 Drug: Metoprolol IVP 5 mg IVP once; Hold for SBP <100 or HR <60. Route: IVP; [place] [facility] [place]; 22:24 Follow up: Response: No adverse reaction me1 Medication: 21:00 VIS not applicable for this client. oh1 Outcome: 22:34 Decision to Hospitalize by Provider. kb 03/03 00:45 Admitted to Tele accompanied by nurse, via stretcher, room 414, with chart, bm8 Condition: stable Instructed on the need for admit, Demonstrated understanding of instructions, follow-up care, 00:45 Patient left the ED. bm8 Signatures: Dispatcher [employer] EDChristine Walker FNP-C MARKETING ANALYTICS ANALYST-CkAlen Gabriel Michelle, RN RN oh1 Lara Schumacher cp4 Sheela Rockwell ra3 Shahab Moya, RN RN bm8 Corrections: (The following items were deleted from the chart) 03/02 22:16 20:44 Chief complaint: Patient states: chest pain that started 30 minutes prior to oh1 arrival. States he was here last Tuesday for chest pain and was diagnosed Tuesday with costrocondritis. cp4
--- NOTE | 2024-03-03 00:22 | P.HP ---
Certification for Inpatient Patient admitted to: Observation With expected LOS: <2 Midnights Practitioner: I am a practitioner with admitting privileges, knowledge of patient current condition, hospital course, and medical plan of care. Services: Services provided to patient in accordance with Admission requirements found in Title 42 Section 412.3 of the Code of Federal Regulations Patient History Date of Service: 03/03/24 Reason for admission: chest pain History of Present Illness: 78-year-old male with history of atrial fibrillation previous Watchman procedure, hypertension, Parkinson's disease presented to the ER with complaints of chest pain since 7:30 PM today. He reports having some irregular heartbeats. Patient does report discomfort as being epigastric with rating to his sides as well as his mid back. Denies any recent fevers, chills or cough. He does follow with cardiology. The patient reports that he has had fluctuation in his blood pressure since having a diagnosis of Parkinson's disease. In the ER he was noted to be in A-fib with RVR. IV metoprolol was given since that his heart rate has been stable. Allergies amoxicillin Adverse Reaction (Verified 10/07/23 13:34) Nausea/Vomiting ciprofloxacin Adverse Reaction (Verified 10/07/23 13:34) Nausea/Vomiting Home Medications: Ezetimibe 1 tab PO DAILY 09/02/22 Pramipexole [Mirapex*] 0.5 mg PO TID 09/02/22 Rosuvastatin Calcium 1 cap PO BEDTIME 09/02/22 Fludrocortisone [Florinef *] 0.1 mg PO DAILY 30 Days #30 tab 09/03/22 Midodrine HCl [Proamatine*] 5 mg PO TID 30 Days #90 tab 09/03/22 Vibegron [Gemtesa] 75 mg PO BEDTIME 08/18/23 Amiodarone HCl [Cordarone Tab] 200 mg PO DAILY 10/09/23 Aspirin Chewable [Aspirin Chewable*] 162 mg PO DAILY 10/09/23 Clopidogrel Bisulfate [Plavix] 75 mg PO BEDTIME 10/09/23 Domperidone 1 tab PO TID 10/09/23 Tamsulosin [Flomax] 0.4 mg PO BEDTIME 10/09/23 Carbidopa/Levodopa [Carbidopa-Levo ER 50-200 Tab] 1 each PO QID 03/03/24 Lactulose 10 gm PO BID 03/03/24 Linaclotide [Linzess] 1 tab PO DAILY 03/03/24 Polyethylene Glycol 3350 [Miralax] 1 dose PO BID 03/03/24 Ranolazine [Ranolazine ER] 500 mg PO BID 03/03/24 Sertraline [Zoloft] 50 mg PO DAILY 03/03/24 - Past Medical/Surgical History Diabetic: No -: Parkinsons -: Hypotension -: Osteoarthritis -: Prostate Ca -: Sleep Apnea -: Afib -: Restless Leg Syndrome -: CHF -: Appendectomy -: Back sx -: Skin Ca removal -: Cholecystectomy -: R knee replacement -: L JEZ - Social History Alcohol use: No CD- Drugs: No Caffeine use: No Review of Systems 10-point ROS is otherwise unremarkable Physical Examination - Physical Exam General: Alert, Oriented x3 HEENT: Atraumatic, Normocephalic Respiratory: Clear to auscultation bilaterally, Normal air movement Cardiovascular: Other (regular rate) Gastrointestinal: Non-distended Neurological: Other (tremor) - Studies Laboratory Data (last 24 hrs) 03/02/24 03/02/24 03/02/24 21:10 21:10 21:10 WBC 8.20 Hgb 13.6 Hct 40.4 Plt Count 261 PT 10.5 INR 0.94 Sodium 138 Potassium 3.7 BUN 45 H Creatinine 1.33 H Glucose 196 H Magnesium 2.3 Total Bilirubin 0.5 AST 22 ALT 37 Alkaline Phosphatase 99 Assessment and Plan - Problems (Diagnosis) (1) Chest pain Current Visit: Yes Status: Acute (2) A-fib Current Visit: No Status: Chronic (3) Parkinson disease Current Visit: No Status: Chronic Qualifiers: Dyskinesia presence: without dyskinesia - Plan 78-year-old male with history of Parkinson's, A-fib, hypertension presents with complaints of chest pain. Chest pain Paroxysomal A-fib Hypertension Parkinson's disease Osteoarthritis Plan: 1. Admit to telemetry for chest pain rule out 2. Patient not on anticoagulation unclear he may be a fall risk 3. Will order echo although per house staff not available over weekend 4. Continue as needed IV metoprolol for now 5. consider cardiology consultation in the morning 6. Await home medication reconciliation. restarted cardiac medications - Advance Directives Does patient have a Living Will: No Does patient have a Durable POA for Healthcare: No
[2024-03-03] MEDS ORDERED: METOPROLOL TARTRATE 5 MG/5 ML INJ IV PRN (00:33)
[2024-03-03 01:12] VITALS: O2SAT 98
[2024-03-03 03:15] VITALS: BMI 33.0
[2024-03-03 04:24] LABS: Thyroid Stimulating Hormone 0.545 uIU/mL (0.358-3.740); Troponin High Sensitivity 6.9 pg/mL (<58.9)
[2024-03-03] MEDS: FLUDROCORTISONE 0.1 MG TAB PO SCH (08:17)
[2024-03-03] MEDS: AMIODARONE HCL 200 MG TAB PO SCH (08:18)
[2024-03-03] MEDS: ASPIRIN 81 MG CHEWABLE TABLET PO SCH (08:18)
[2024-03-03] MEDS: ENOXAPARIN 40 MG/0.4 ML SQ SCH (08:19)
[2024-03-03 08:42] VITALS: TEMP 98
[2024-03-03] MEDS: POLYETHYL GLY 3350 17 GM/DOSE PO SCH (10:08)
[2024-03-03] MEDS: LACTULOSE 20 GM/30 ML UCUP PO SCH (10:09)
[2024-03-03] MEDS: SERTRALINE HCL 50 MG TAB PO SCH (10:09)
[2024-03-03] MEDS: EZETIMIBE 10 MG TAB PO SCH (10:10)
--- NOTE | 2024-03-03 12:45 | P.DS ---
Admission Date: 03/03/24 Discharge Date: 03/03/24 Disposition: ROUTINE DISCHARGE Discharge Condition: FAIR Reason for Admission: chest pain - Problems (1) Chest pain Current Visit: Yes Status: Acute (2) Costochondral chest pain Current Visit: Yes Status: Acute (3) A-fib Current Visit: No Status: Chronic (4) Parkinson disease Current Visit: No Status: Chronic Qualifiers: Dyskinesia presence: without dyskinesia Brief History of Present Illness: 78-year-old male with history of atrial fibrillation previous Watchman procedure, hypertension, Parkinson's disease presented to the ER with complaints of chest pain. He reports having some irregular heartbeats. Patient reported associated mid back pain worse with deep breathing. The patient reports that he has had fluctuation in his blood pressure since having a diagnosis of Parkinson's disease. In the ER he was noted to be in A-fib with RVR. IV metoprolol was given which stabilized his heart rate. Patient was hospitalized for ACS rule out. Hospital Course: Patient placed under observation on the medical floor. Troponin trended negative. Patient chest pain is reproducible by palpation. Patient reports his PCP Dr. Rodríguez recently diagnosed with costochondral chest pain and prescribed him steroid. EKG on presentation showed atrial fibrillation, no significant ischemic changes. ACS ruled out. Patient had fluctuating BP. He has a history of orthostatic hypotension related to his Parkinson's disease. Patient was in atrial fibrillation with RVR. He was given a dose of IV metoprolol in the ED. Heart rate ranged from 90-110. Cardiology consult offered but patient declined. I discussed patient's heart rate with his PCP Dr. Rodríguez, metoprolol at bedtime recommended. 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 He is informed to follow-up with his PCP within 1 week. He is also informed to follow-up with his construction job cost estimator regarding his atrial fibrillation. Vital Signs/Physical Exam: Temp Pulse Resp BP Pulse Ox 98.0 F 82 15 166/108 H 96 03/03/24 08:00 03/03/24 08:00 03/03/24 08:00 03/03/24 08:00 03/03/24 08:00 General: Alert, In no apparent distress, Oriented x3 HEENT: Mucous membr. moist/pink Neck: Supple, JVD not distended Respiratory: Clear to auscultation bilaterally, Normal air movement Cardiovascular: No edema, Normal S1 S2, Irregular heart rate/rhythm Gastrointestinal: Normal bowel sounds, Soft and benign, Non-distended Musculoskeletal: No swelling Integumentary: No rashes, No cyanosis Neurological: Normal speech, Normal strength at 5/5 x4 extr Laboratory Data at Discharge: WBC 8.20 thou/uL (4.3-10.9) 03/02/24 21:10 Hgb 13.6 g/dL (13.6-17.9) 03/02/24 21:10 Hct 40.4 % (39.6-49.0) 03/02/24 21:10 Plt Count 261 thou/uL (152-406) 03/02/24 21:10 PT 10.5 SECONDS (9.4-12.5) 03/02/24 21:10 INR 0.94 03/02/24 21:10 Sodium 138 mEq/L (136-145) 03/02/24 21:10 Potassium 3.7 mEq/L (3.5-5.1) 03/02/24 21:10 BUN 45 mg/dL (7-18) H 03/02/24 21:10 Creatinine 1.33 mg/dL (0.70-1.30) H 03/02/24 21:10 Glucose 196 mg/dL (74-106) H 03/02/24 21:10 Magnesium 2.3 mg/dL (1.6-2.4) 03/02/24 21:10 Total Bilirubin 0.5 mg/dL (0.2-1.0) 03/02/24 21:10 AST 22 U/L (15-37) 03/02/24 21:10 ALT 37 U/L (16-61) 03/02/24 21:10 Alkaline Phosphatase 99 U/L (45-117) 03/02/24 21:10 Home Medications: Ezetimibe 1 tab PO DAILY 09/02/22 Pramipexole [Mirapex*] 0.5 mg PO TID 09/02/22 Rosuvastatin Calcium 1 cap PO BEDTIME 09/02/22 Fludrocortisone [Florinef *] 0.1 mg PO DAILY 30 Days #30 tab 09/03/22 Vibegron [Gemtesa] 75 mg PO BEDTIME 08/18/23 Amiodarone HCl [Cordarone*] 200 mg PO DAILY 10/09/23 Aspirin Chewable [Aspirin Chewable*] 162 mg PO DAILY 10/09/23 Clopidogrel Bisulfate [Plavix*] 75 mg PO BEDTIME 10/09/23 Domperidone 1 tab PO TID 10/09/23 Tamsulosin [Flomax*] 0.4 mg PO BEDTIME 10/09/23 Carbidopa/Levodopa [Carbidopa-Levo ER 50-200 Tab] 1 each PO QID 03/03/24 Lactulose 10 gm PO BID 03/03/24 Metoprolol Tartrate [Lopressor*] 25 mg PO BEDTIME #30 tab 03/03/24 Midodrine HCl [Proamatine*] 5 mg PO TID PRN 30 Days #90 tab 03/03/24 Polyethylene Glycol 3350 [Miralax] 1 dose PO BID 03/03/24 Ranolazine [Ranolazine ER] 500 mg PO BID 03/03/24 Sertraline [Zoloft*] 50 mg PO DAILY 03/03/24 New Medications: Metoprolol Tartrate [Lopressor*] 25 mg PO BEDTIME #30 tab Midodrine HCl [Proamatine*] 5 mg PO TID PRN 30 Days #90 tab PRN Reason: SBP < 90 Physician Discharge Instructions: Orthostatic precautions-bilateral compressive stockings after the thigh level. When changing from supine to standing, please sit for 2 to 4 minutes before you stand up. Followup: Huan Rodríguez MD [Primary Care Provider] - 1 Week Time spent managing pt's care (in minutes): 29
[2024-03-03] MEDS: LEVODOPA PO SCH (13:07)
[2024-03-03] MEDS: CARBIDOPA PO SCH (13:07)
[2024-03-03] MEDS: DOMPERIDONE PO SCH (13:08)
[2024-03-03] MEDS: PRAMIPEXOLE 0.25 MG TAB PO SCH (13:09)
[2024-03-03 13:49] VITALS: BP 157/96
[2024-03-03] MEDS ORDERED: ROSUVASTATIN 10 MG TAB PO SCH (21:00)
[2024-03-03] MEDS ORDERED: CLOPIDOGREL 75 MG TABLET PO SCH (21:00)
[2024-03-03] MEDS ORDERED: TAMSULOSIN 0.4 MG SR CAP PO SCH (21:00)
== END 2024-03-03 16:43 | disposition home or self-care (01) ==
LOC: ER 20:40 → ERHOLD 03-03 00:27 → 4TH 03-03 00:40
PROVIDERS: ADMIT Internal Medicine; ATTEND Internal Medicine
DX: R07.89 Other chest pain (principal); I48.11 Longstanding persistent atrial fibrillation; G20.A1 Parkinson's disease without dyskinesia, without mention of fluctuations; M19.90 Unspecified osteoarthritis, unspecified site; Z88.1 Allergy status to other antibiotic agents; Z79.82 Long term (current) use of aspirin
CPT/HCPCS: 85025; 80048; 36415; 83735; 85610; 80076; 84443 ×2; 84484 ×3; 83880; 71045; J1650; 96374; 99285; G0378